=== PATIENT | female | born 1930 | race Caucasian/White ===

== ENCOUNTER 2018-08-16 10:59 | Inpatient (IN) ==
[2018-08-16] MEDS ORDERED: 0.9 % Sodium Chloride 1,000 ML IVC ONE (11:10)
[2018-08-16] MEDS ORDERED: Piperacillin/Tazobactam 3.375 GM in 0.9 % Sodium Chloride Mini Bag 100 ML IVPB ONE (11:15)
--- NOTE | 2018-08-16 11:26 | Emergency Department Note ---
Disposition Clinical Impression: Pneumonia Qualifiers: Pneumonia type: due to unspecified organism Laterality: unspecified laterality Lung location: unspecified part of lung Qualified Code(s): J18.9 - Pneumonia, unspecified organism ARF (acute renal failure) Qualifiers: Acute renal failure type: unspecified Qualified Code(s): N17.9 - Acute kidney failure, unspecified Hypotension Qualifiers: Hypotension type: other hypotension type Qualified Code(s): I95.89 - Other hypotension Disposition: Admitted As Inpatient Condition: Fair Time of Disposition: 13:37 General Adult HPI - General Chief complaint: ED Weakness Stated complaint: Weakness Time Seen by Provider: 08/16/18 11:08 Source: EMS Limitations: no limitations Nursing Notes Reviewed: Yes Vital Signs Reviewed: Yes - History of Present Illness HPI Narrative: I did see the patient immediately upon arrival and also spoke with the paramedics. The patient is in a extended care facility and is nonambulatory and when the arrived this morning the /patient told him that she had a very bad night sleep and that she did not feel well. He states she has had weakness for about the last month which has been constant chronic. Was admitted here several weeks ago for pneumonia and he is unsure if she has completed her course of antibiotics however I did review her ECF sheet and did not see evidence that she is still taking medications for pneumonia. She states she does not feel weak now. I do not see any medications which have been used for weakness specifically. The paramedics state that she did feel warm but temperature was not taken. The blood pressure on the way here was 98 systolic . Her oxygen saturation was 95% on room air initially placed her on nasal cannula oxygen. did arrive and did help somewhat with a history. Social history: No smoking or alcohol, ECF Vision: No blurred vision ENT: No rhinorrhea Respiratory: No cough Allergic: No allergies : No blood in urine GI: No blood in stool Hematologic: No bruising Dermatologic: No skin rash Musculoskeletal: No pain in the extremities Neuro: No numbness of the extremities Pain Scale: 0 - Related Data Home Medications Medication Instructions Recorded Confirmed Allopurinol [Zyloprim 100 MG] 100 mg PO DAILY 07/27/18 08/16/18 Famotidine 20 mg PO BID 08/16/18 08/16/18 Previous Rx's Medication Instructions Recorded Acetaminophen [Tylenol] 650 mg PO Q6HR tablet 08/09/18 Ipratropium/Albuterol Neb [Duoneb] 3 ml IH [id number] inhsol 08/09/18 Levothyroxine [Synthroid] 25 mcg PO 0630 tablet 08/09/18 Lidocaine Patch [Lidoderm 5% patch] 1 each TP Q24H #5 adh..patch 08/09/18 Lisinopril [Zestril] 10 mg PO BID #0 08/09/18 Melatonin 1.5 mg PO HS PRN tablet 08/09/18 Metoprolol [Lopressor] 25 mg PO BID #0 08/09/18 Ondansetron ODT [Zofran ODT] 4 mg SL Q6HR PRN tab.rapdis 08/09/18 Allergies Allergy/AdvReac Type Severity Reaction Status Date / Time No Known Allergies Allergy Verified 07/27/18 09:39 All systems ED: reviewed and negative except as stated. Review of Systems: As Per HPI Past Medical History - Past Medical History Medical history: Reports: hyperlipidemia, hypertension, renal disease, thyroid disease Surgical history: Reports: no surgical history Psychiatric history: Reports: no psych history - Social History Smoking Status: Former smoker Smokeless Tobacco Status: No Alcohol use: Reports: none Drug use: Reports: none Physical Exam CONSTITUTIONAL: Alert and oriented X3she does know the month and the year and the hospital , well-nourished, pale appearing, in no apparent distress HEAD: Normocephalic; atraumatic. EYES: PERRL, no scleral icterus. NOSE: The nose is normal in appearance without rhinorrhea RESP: Normal chest excursion with respiration; breath sounds clear and equal bilaterally; no wheezes, rhonchi, or rales CARD: Regular rhythm, without murmurs, rub or gallop ABD: Non-distended; non-tender, soft,without rigidity, rebound or guarding SKIN: Normal for age and race; warm and dry; no apparent lesions - General Limitations: no limitations General appearance: alert Course Vital Signs Temperature 98.1 F 08/16/18 11:08 Pulse Rate 89 08/16/18 11:08 Respiratory Rate 22 08/16/18 11:08 Blood Pressure 94/58 08/16/18 11:08 O2 Sat by Pulse Oximetry 92 08/16/18 11:08 Temperature 98.1 F 08/16/18 11:22 Pulse Rate 85 08/16/18 12:33 Respiratory Rate 23 08/16/18 12:33 Blood Pressure 108/54 08/16/18 12:33 O2 Sat by Pulse Oximetry 91 08/16/18 12:33 Oxygen Delivery Oxygen Delivery Nasal Cannula Medical Decision Making - MDM Narrative Medical decision making narrative: concern is for pneumonia or hospital pneumonia and for that reason she is started on Zosyn and vancomycin, blood cultures, lactate level, IV fluids, labs. Her white blood cell count was 26,000 this morning and the patient will be admitted to the hospital. 1126 I did review the patient's EKG showing normal sinus rhythm with rate of 85 and evidence of right bundle-branch block but without acute ischemic change or arrhythmia. 1149 I did review the patient's test results as well as the x-ray and the patient does have a diagnosis of pneumonia and she was recently here several weeks ago and so for that reason I will start her on Zosyn and vancomycin and I did speak with the hospitalist who accepts her for admission. Also does have acute renal failure and I did compare this to previous creatinine levels. I did go back and see her again just a few minutes ago and also spoke with the . She does not have septic shock but does have some low blood pressure and did receive IV fluids. Lactate is elevated 2.9 but is not above 4. Her pressure has improved relative to when she had initially presented. 1336 - Medical Records Medical records reviewed: Yes I reviewed the patient's medical records. - Lab Data Lab results reviewed: Yes I reviewed the patient's lab results. Result diagrams: 08/16/18 11:55 08/16/18 11:55 Lab Results 08/16/18 08/16/18 08/16/18 Range/Units 11:36 11:55 11:55 WBC 27.8 H (4.3-11.1) K/mcL RBC 3.09 L (3.82-4.97) M/mcL Hgb 9.1 L (11.5-15.4) g/dL Hct 27.9 L (35.3-44.9) % MCV 90.3 (83.0-100.0) fL MCH 29.4 (28.0-33.3) pg MCHC 32.6 (31.6-35.5) g/dL RDW 14.7 H (11.5-14.5) % Plt Count 154 (140-400) K/mcL MPV 10.8 (9.4-12.4) fL Immature Gran % Test Not Performed Seg Neutrophils % 84.0 % Band Neutrophils % 4.0 (0-4) % Lymphocytes % 9.0 % Monocytes % 2.0 % Eosinophils % 1.0 % Basophils % Test Not Performed Neutrophils # 24.5 H (1.6-8.9) K/mcL Lymphocytes # 2.5 (0.6-4.6) K/mcL Monocytes # 0.6 (0.0-1.3) K/mcL Eosinophils # 0.3 (0.0-0.6) K/mcL Basophils # Test Not Performed Reactive Lymphocytes Present A (Not Present) Platelet Estimate Normal (Normal) Sodium 134 L (136-145) mEq/L Potassium 3.4 L (3.5-5.1) mEq/L Chloride 102 (98-107) mEq/L Carbon Dioxide 26 (23-29) mEq/L BUN 28 H (8-23) mg/dL Creatinine 2.04 H (0.60-1.20) mg/dL Est GFR ( Amer) 28 L (> 60) Est GFR (Non-Af Amer) 23 L (> 60) BUN/Creatinine Ratio 14 (6-26) Glucose 96 (70-105) mg/dL Calculated Osmolality 283 (280-300) Lactic Acid (0.5-2.2) mmol/L Calcium 9.1 (8.6-10.3) mg/dL Total Bilirubin 0.6 (0.3-1.0) mg/dL Direct Bilirubin 0.2 (0.0-0.2) mg/dL Indirect Bilirubin 0.4 (0.0-1.2) mg/dL AST 7 L (13-39) Units/L ALT 5 L (7-52) Units/L Alkaline Phosphatase 78 (34-104) Units/L Serum Total Protein 6.3 L (6.4-8.9) g/dL Albumin 1.8 L (3.5-5.7) g/dL Globulin 4.5 H (2.4-3.5) g/dL Albumin/Globulin Ratio 0.4 L (1.1-2.2) Urine Color Dark Yellow (Yellow) Urine Clarity Turbid A (Clear) Urine pH 5.0 (5.0-8.0) pH Units Ur Specific [place] > 1.030 H (1.010-1.025) Urine Protein >=300 H (Neg-Trace) mg/dL Urine Glucose (UA) Normal (Normal) mg/dL Urine Ketones Trace H (Negative) mg/dL Urine Blood Negative (Negative) Urine Nitrite Negative (Negative) Urine Bilirubin Small H (Negative) Urine Urobilinogen Normal (Normal) mg/dL Ur Leukocyte Esterase Small H (Negative) Urine Microscopic RBC Present (0-3) per hpf Urine Microscopic WBC 30-50 H (0-3) per hpf Ur Squamous Epith Cells Many H (None-Few) per lpf Urine Bacteria Present (None-Few) per hpf Hyaline Casts NETWORKING ADMINISTRATOR Urine Yeast Present H (None Seen) per hpf Ur Culture Indicated? NO. A (NO) 08/16/18 Range/Units 11:55 WBC (4.3-11.1) K/mcL RBC (3.82-4.97) M/mcL Hgb (11.5-15.4) g/dL Hct (35.3-44.9) % MCV (83.0-100.0) fL MCH (28.0-33.3) pg MCHC (31.6-35.5) g/dL RDW (11.5-14.5) % Plt Count (140-400) K/mcL MPV (9.4-12.4) fL Immature Gran % Seg Neutrophils % % Band Neutrophils % (0-4) % Lymphocytes % % Monocytes % % Eosinophils % % Basophils % Neutrophils # (1.6-8.9) K/mcL Lymphocytes # (0.6-4.6) K/mcL Monocytes # (0.0-1.3) K/mcL Eosinophils # (0.0-0.6) K/mcL Basophils # Reactive Lymphocytes (Not Present) Platelet Estimate (Normal) Sodium (136-145) mEq/L Potassium (3.5-5.1) mEq/L Chloride (98-107) mEq/L Carbon Dioxide (23-29) mEq/L BUN (8-23) mg/dL Creatinine (0.60-1.20) mg/dL Est GFR ( Amer) (> 60) Est GFR (Non-Af Amer) (> 60) BUN/Creatinine Ratio (6-26) Glucose (70-105) mg/dL Calculated Osmolality (280-300) Lactic Acid 2.9 H (0.5-2.2) mmol/L Calcium (8.6-10.3) mg/dL Total Bilirubin (0.3-1.0) mg/dL Direct Bilirubin (0.0-0.2) mg/dL Indirect Bilirubin (0.0-1.2) mg/dL AST (13-39) Units/L ALT (7-52) Units/L Alkaline Phosphatase (34-104) Units/L Serum Total Protein (6.4-8.9) g/dL Albumin (3.5-5.7) g/dL Globulin (2.4-3.5) g/dL Albumin/Globulin Ratio (1.1-2.2) Urine Color (Yellow) Urine Clarity (Clear) Urine pH (5.0-8.0) pH Units Ur Specific [place] (1.010-1.025) Urine Protein (Neg-Trace) mg/dL Urine Glucose (UA) (Normal) mg/dL Urine Ketones (Negative) mg/dL Urine Blood (Negative) Urine Nitrite (Negative) Urine Bilirubin (Negative) Urine Urobilinogen (Normal) mg/dL Ur Leukocyte Esterase (Negative) Urine Microscopic RBC (0-3) per hpf Urine Microscopic WBC (0-3) per hpf Ur Squamous Epith Cells (None-Few) per lpf Urine Bacteria (None-Few) per hpf Hyaline Casts Urine Yeast (None Seen) per hpf Ur Culture Indicated? (NO) - Radiology Data Radiology results reviewed: Yes I reviewed the patient's radiology results. Critical Care Time Critical Care Time: Yes Total Critical Care Time: 30 Attestation: 30 minutes of critical care time was spent with the patient with hypotension, recent hospital discharge, initiation of broad-spectrum antibiotics, IV fluid resuscitation, oxygen therapy, discussion with the hospitalist
[2018-08-16 12:10] LABS: Bilirubin,Urine Small (Negative); Blood,Urine Negative (Negative); Clarity,Urine Turbid (Clear); Color,Urine Dark Yellow (Yellow); Glucose,Urine (UA) Normal (Normal); Ketones,Urine Trace mg/dL (Negative); Leukocyte Esterase,Urine Small (Negative); Nitrite,Urine Negative (Negative); Protein,Urine >=300 mg/dL (Neg-Trace); Specific Gravity,Urine > 1.030 (1.010-1.025); Urobilinogen,Urine Normal (Normal)
[2018-08-16 12:13] LABS: Squamous Epithelial Cell,Urine Many per lpf (None-Few); WBC,Urine 30-50 per hpf (0-3)
[2018-08-16 12:25] LABS: Bacteria,Urine Present per hpf (None-Few); RBC,Urine Present per hpf (0-3); Yeast,Urine Present per hpf (None Seen)
[2018-08-16 12:25] LABS: Hemoglobin 9.1 g/dL (11.5-15.4); Red Cell Distribution Width 14.7 % (11.5-14.5)
[2018-08-16 12:26] LABS: Hematocrit 27.9 % (35.3-44.9); Mean Corpuscular HGB Conc 32.6 g/dL (31.6-35.5); Mean Corpuscular Hemoglobin 29.4 pg (28.0-33.3); Mean Corpuscular Volume 90.3 fL (83.0-100.0); Mean Platelet Volume 10.8 fL (9.4-12.4); Platelet Count 154 K/mcL (140-400); Red Blood Count 3.09 M/mcL (3.82-4.97)
[2018-08-16 12:38] LABS: Albumin 1.8 g/dL (3.5-5.7); Albumin/Globulin Ratio 0.4 (1.1-2.2); Bilirubin,Direct 0.2 mg/dL (0.0-0.2); Bilirubin,Indirect 0.4 mg/dL (0.0-1.2); Bilirubin,Total 0.6 mg/dL (0.3-1.0); Calcium 9.1 mg/dL (8.6-10.3); Globulin 4.5 g/dL (2.4-3.5); Potassium 3.4 mEq/L (3.5-5.1); Total Protein 6.3 g/dL (6.4-8.9)
[2018-08-16 12:59] LABS: Eosinophils # 0.3 K/mcL (0.0-0.6); Lymphocytes # 2.5 K/mcL (0.6-4.6); Monocytes # 0.6 K/mcL (0.0-1.3); Neutrophils # 24.5 K/mcL (1.6-8.9); Platelet Estimate Normal (Normal); Reactive Lymphocytes Present (Not Present)
[2018-08-16] MEDS ORDERED: Aminoglycoside Consult 1 EACH MC ONE (13:23)
[2018-08-16] MEDS ORDERED: Naloxone 0.4 MG/ML INJ IVP PRN (13:37)
[2018-08-16] MEDS ORDERED: Melatonin 3 MG TABLET PO PRN ×2 (13:41→16:14)
[2018-08-16] MEDS ORDERED: Ondansetron 4 MG/2 ML VIAL IVP PRN (13:42)
[2018-08-16] MEDS ORDERED: Ipratropium/Albuterol Neb 3 ML IH SCH (16:00)
--- NOTE | 2018-08-16 16:04 | Internal Med History&Physical ---
Date of Encounter: 08/16/18 Time of Encounter: 14:00 Internal Medicine - H&P: HPI Chief complaint: Shortness of breath today History of present illness: Ms. Sy is a 87 year old female with pmh of hypertension, dyslipidemia, kidney disease presenting with complaints of [facility]ness [facility] today at the [facility]. Patient unable to give a full history and may have some dementia. She admits to shortness of breath and occasional cough and says she lives at a [facility]. Not much history could be obtained from her otherwise. Per ER/ [facility] records, she also complains of weakness and feeling unwell for a couple of days. In the ER, she was noted to have a leukcoytosis of 27 and right sided pneumonia. She was started on vanc and zosyn and she is being admitted for further management Past Med Surg Social Fam HX - Past Medical History Medical history: hyperlipidemia, hypertension, renal disease, thyroid disease Additional medical history: Gout Psychiatric history: no psych history - Past Surgical History Surgical History: no surgical history Additional surgical history: none - Social History Smoking Status: Former smoker Smokeless Tobacco Status: No Alcohol use: none Drug use: none - Family History Father Hx Family Cancer: Yes Internal Medicine - H&P: Meds Allopurinol [Zyloprim 100 MG] 100 mg PO DAILY 07/27/18 [History] Acetaminophen [Tylenol] 650 mg PO Q6HR tablet 08/09/18 [Rx] Lisinopril [Zestril] 10 mg PO BID #0 08/09/18 [Rx] Ondansetron ODT [Zofran ODT] 4 mg SL Q6HR PRN tab.rapdis 08/09/18 [Rx] Famotidine [Pepcid] 20 mg PO BID 08/16/18 [History] Ipratropium/Albuterol Sulfate [Iprat-Albut 0.5-3(2.5) mg/3 ml] 3 ml IH QID 08/16/18 [History] Levothyroxine Sodium [Levo-T] 50 mcg PO QAM 08/16/18 [History] Lidocaine Patch [Lidoderm 5% patch] 1 patch TP DAILY 08/16/18 [History] Melatonin [Melatin] 1.5 mg PO PRN PRN 08/16/18 [History] Metoprolol Tartrate [Lopressor] 25 mg PO BID 08/16/18 [History] Ondansetron HCl [Zofran] 4 mg PO TID 08/16/18 [History] Oxygen 2 l IH CONT 08/16/18 [History] Allergy/AdvReac Type Severity Reaction Status Date / Time No Known Allergies Allergy Verified 07/27/18 09:39 ROS unobtainable: due to mental status All Systems PM: A 10-system review of systems was performed and is negative for pertinent findings except as documented above in the HPI. - Cardiovascular Cardiovascular ROS IM: dyspnea - Respiratory Respiratory: cough, dyspnea - Constitutional Vitals: Temp Pulse Resp BP Pulse Ox 97.8 F 96 18 118/82 91 08/16/18 15:47 08/16/18 15:47 08/16/18 15:55 08/16/18 15:47 08/16/18 15:55 General appearance: Present: A&O X 2 Exam: Lethargic - Head Head exam: Present: atraumatic, normocephalic - Eye Eye exam: Present: PERRL, conjuntiva pink, sclera anicteric Pupils: Present: PERRL - Neck Neck exam general surgery: Present: supple, trachea midline. Absent: lymphadenopathy - Respiratory Respiratory exam: Present: decreased breath sounds. Absent: accessory muscle use, rales, rhonchi, wheezes - Cardiovascular Cardiovascular exam: Present: RRR, +S1, +S2. Absent: diastolic murmur, gallop, rubs, systolic murmur - GI/Abdominal GI/Abdominal exam: Present: normal bowel sounds, soft, no peritoneal signs. Absent: distended, tenderness - Extremities Exam Extremities exam: Present: warm, radial pulses palpable and symmetrical. Absent: calf tenderness, cyanotic, pedal edema - Neurological Exam Neurological exam: Present: CN II-XII intact, oriented X3, no focal deficits. Absent: pronater drift, facial droop, speech deficit - Skin Skin exam: Present: dry, intact Internal Med - H&P Results - Labs CBC & Chem 7: 08/16/18 11:55 08/16/18 11:55 Labs: Short CBC 08/16/18 Range/Units 11:55 WBC 27.8 H (4.3-11.1) K/mcL Hgb 9.1 L (11.5-15.4) g/dL Hct 27.9 L (35.3-44.9) % Plt Count 154 (140-400) K/mcL Neutrophils # 24.5 H (1.6-8.9) K/mcL BMP 08/16/18 11:55 Sodium 134 L Potassium 3.4 L Chloride 102 Carbon Dioxide 26 BUN 28 H Creatinine 2.04 H Glucose 96 Calcium 9.1 Liver Function 08/16/18 Range/Units 11:55 Total Bilirubin 0.6 (0.3-1.0) mg/dL Direct Bilirubin 0.2 (0.0-0.2) mg/dL AST 7 L (13-39) Units/L ALT 5 L (7-52) Units/L Alkaline Phosphatase 78 (34-104) Units/L Albumin 1.8 L (3.5-5.7) g/dL Urine 08/16/18 Range/Units 11:36 Urine Color Dark Yellow (Yellow) Urine Clarity Turbid A (Clear) Urine pH 5.0 (5.0-8.0) pH Units Ur Specific [place] > 1.030 H (1.010-1.025) Urine Protein >=300 H (Neg-Trace) mg/dL Urine Glucose (UA) Normal (Normal) mg/dL - Impressions ITS Impressions Chest X-Ray 08/16/18 11:14 IMPRESSION: Elevated right diaphragm with right basilar atelectasis or pneumonia D/ / Kodak Boyle MD / Kodak Boyle MD Interpreting Provider: Kodak Boyle MD - Assessment and Plan (1) Sepsis Current Visit: Yes Status: Acute Assessment and plan: Pt comes in with shortness of breath with pneumonia and leukocytosis of 27. Obtain cultures, urine strep legionella and pneumococcal antigen Start on vanc and zosyn Qualifiers: Qualified Code(s): A41.9 - Sepsis, unspecified organism (2) Pneumonia Current Visit: Yes Status: Acute Assessment and plan: See #1. ON vanc and zosyn Qualifiers: Pneumonia type: due to unspecified organism Laterality: unspecified laterality Lung location: unspecified part of lung Qualified Code(s): J18.9 - Pneumonia, unspecified organism (3) Hypothyroidism Current Visit: Yes Status: Acute Assessment and plan: Continue levothyroxine Qualifiers: Qualified Code(s): E03.9 - Hypothyroidism, unspecified (4) Hypertension Current Visit: Yes Status: Acute Assessment and plan: Hold home meds due to borderline hypotension Qualifiers: Qualified Code(s): I10 - Essential (primary) hypertension (5) DVT prophylaxis Current Visit: Yes Status: Acute Assessment and plan: Heparin sc - Time Spent With Patient Total time spent is greater than 50% in coordination of care (as documented) at patient's floor/unit and/or counseling patient:
[2018-08-16] MEDS: Acetaminophen 325 MG TABLET PO SCH (17:32)
[2018-08-16] MEDS: *HR* Heparin 5,000 UNIT/ML VIAL SQ SCH (18:14)
[2018-08-16] MEDS ORDERED: 0.9 % Sodium Chloride 1,000 ML IVC SCH (19:15)
[2018-08-16] MEDS: Ipratropium/Albuterol Neb 3 ML IH SCH ×2 (19:23→23:46)
[2018-08-16] MEDS ORDERED: *HR* FentaNYL (PF) 100 MCG/2 ML VIAL IVP PRN (19:27)
[2018-08-16] MEDS: 0.9 % Sodium Chloride 1,000 ML IVC SCH (20:35)
[2018-08-16] MEDS: Piperacillin/Tazobactam 3.375 GM in 0.9 % Sodium Chloride Mini Bag 100 ML IVPB SCH (20:36)
[2018-08-16] MEDS: Haloperidol Lactate 5 MG/ML VIAL IVP PRN (20:40)
[2018-08-16] MEDS: Famotidine 20 MG TABLET PO SCH (20:40)
[2018-08-16 21:35] LABS: ABG Base Excess 0 mEq/L (-2 to 3); ABG HCO3 25 mEq/L (21-27); ABG Oxygen Saturation 90 % (95-98); ABG PCO2 38 mmHg (35-45); ABG PH 7.42 pH Units (7.32-7.45); ABG PO2 56 mmHg (85-104); ABG TCO2 26 mEq/L (20-26)
[2018-08-17] MEDS: Acetaminophen 325 MG TABLET PO SCH ×4 (00:16→21:28)
[2018-08-17] MEDS: Ipratropium/Albuterol Neb 3 ML IH SCH ×4 (03:48→22:49)
[2018-08-17] MEDS: 0.9 % Sodium Chloride 1,000 ML IVC SCH (05:44)
[2018-08-17] MEDS: Haloperidol Lactate 5 MG/ML VIAL IVP PRN (05:44)
[2018-08-17 05:54] LABS: Hematocrit 30.2 % (35.3-44.9); Hemoglobin 9.8 g/dL (11.5-15.4); Mean Corpuscular HGB Conc 32.5 g/dL (31.6-35.5); Mean Corpuscular Hemoglobin 29.3 pg (28.0-33.3); Mean Corpuscular Volume 90.1 fL (83.0-100.0); Mean Platelet Volume 11.1 fL (9.4-12.4); Platelet Count 118 K/mcL (140-400); Red Blood Count 3.35 M/mcL (3.82-4.97); Red Cell Distribution Width 15.3 % (11.5-14.5)
[2018-08-17 06:30] LABS: Eosinophils # 1.5 K/mcL (0.0-0.6); Lymphocytes # 2.9 K/mcL (0.6-4.6); Monocytes # 1.9 K/mcL (0.0-1.3); Neutrophils # 17.9 K/mcL (1.6-8.9); Platelet Estimate Decreased (Normal)
[2018-08-17] MEDS ORDERED: Levothyroxine 25 MCG TABLET PO SCH (06:30)
--- NOTE | 2018-08-17 06:53 | Event Note ---
Date of Encounter: 08/17/18 Time of Encounter: 06:37 Alerted by patient's nurse KINGS Rivera that patient had finished 1 L bag of IV fluids with second bag now being hung. Patient only had 1 wet Depends during shift. Bladder scan showed 4 mL, however patient was yelling out in pain during bladder scan so nurse straight cathed patient with 60 mL of dark yellow urine out. GFR 23 and creatinine 2.04 and yesterday's a.m. labs. No CMP or BMP results this morning to compare. Patient had elevated lactic acid of 2.7 as well yesterday at 16:22 with no repeat ordered. Stat lactic acid ordered. Lab called to determine if BMP her CMP was drawn this morning which lab stated that results are pending. Pt. had Purewick catheter previously Galeano catheter ordered d/t retention/low output. Day team to monitor pts. renal function and output closely to determine if urology and/or nephrology consult is appropriate. Nurse instructed to continue monitoring patient closely and alert me immediately of any adverse changes.
[2018-08-17 06:54] LABS: BUN/Creatinine Ratio 13 (6-26); Blood Urea Nitrogen 36 mg/dL (8-23); Calcium 8.8 mg/dL (8.6-10.3); Carbon Dioxide 23 mEq/L (23-29); Chloride 105 mEq/L (98-107); Glucose 50 mg/dL (70-105); Magnesium 1.7 mg/dL (1.6-2.6); Osmolality,Calculated 284 (280-300); Phosphorous < 1.0 mg/dL (2.7-4.5); Potassium 4.1 mEq/L (3.5-5.1); Sodium 134 mEq/L (136-145); Vancomycin,Random 12 mcg/mL; eGFR For Non-African Americans 17 (> 60)
--- NOTE | 2018-08-17 08:09 | Internal Med Progress Note ---
Hospitalist Progress Note - Encounter Date of Encounter: 08/17/18 Time of Encounter: 08:07 - Subjective Interval History: Essentially anuric overnight, RN unable to get marie placed, pt still moaning/grimacing and does endorse pain to palpation throughout her abdomen. Denies N/V/D. No fevers. Family is very concerned. Discussion today about goals of care with pt and family, will remain full code for now. - Exam Vitals: Temp Pulse Resp BP Pulse Ox 98.8 F 104 18 96/65 96 08/17/18 06:38 08/17/18 06:38 08/17/18 06:38 08/17/18 06:38 08/17/18 06:38 Exam: General: moaning and appears uncomfortable, poor eye contact, elderly and ill appearing, somewhat confused Thoracic: coarse breath sounds w L-sided basilar crackles, R lung relatively clear Cardio: Normal S1 and S2, regular rate and rhythm, no murmurs Abdomen: Soft, tender diffusely, does have palpable spleen Extremities: Warm, well perfused. DP pulses 2+ b/l. No edema. Neuro: Awake, oriented to self, nods appropriately to some questions - Assessment and Plan (1) Pneumonia Current Visit: Yes Status: Acute - Summary of Assessment and Plan Summary of Assessment and Plan: PNA: SIRS 3/4, CXR w possible infiltrate - empiric zosyn Severe sepsis: SIRS 3/4 (afebrile), c/b persistent lactic acidosis 2.7, hypotension, and MARISA - repeat lactic acid - holding lopressor, ACEi - fluids as below for MAIRSA, bolus PRN hypotension Anuric MARISA: - Ulytes - holding ACEi - stop vanc as no indication for skin/soft tissue infection and no hx MRSA - fluids NS@150 for 1L then reduce to @100 - Consult Urology for Marie placement, need accurate I&Os as well as urine testing, RN unsuccessful - Consult Neph for assistance, per discussion with family would be amenable to HD if needed and was a candidate Hypophosphatemia: Phos <1 - replace with 30mmol q4h x2 w repeat this afternoon Hypoglycemia: BG 50 this AM - accuchecks - replace prn Abdominal Pain: does have renal failure and palpable spleen - CT abd/pelvis w/o con Acute metabolic encephalopathy: due to infection and MARISA - precautions - treat underlying cause as above (or if unknown, see below) Chronic hypoxic respiratory failure: home 2L Hypothyroidism: home synthroid HTN: holding home BB, ACEi Gout: holding home allopurinol 100 PPx: sqh FEN: regular, MIVF as above Lines: PIV Consults: Uro, Neph Code: Full, extensive discussion today and still full code, consider palliative consult in future if condition continues to worsen Dispo: patient requires inpatient eval and management at this time. Anticipate 2-3 days. Will likely return to SNF. Internal Medicine: Result - Labs CBC & Chem 7: 08/17/18 04:24 08/17/18 04:24 Labs: Short CBC 08/16/18 08/17/18 Range/Units 11:55 04:24 WBC 27.8 H 24.2 H (4.3-11.1) K/mcL Hgb 9.1 L 9.8 L (11.5-15.4) g/dL Hct 27.9 L 30.2 L (35.3-44.9) % Plt Count 154 118 L (140-400) K/mcL Neutrophils # 24.5 H 17.9 H (1.6-8.9) K/mcL BMP 08/16/18 08/17/18 11:55 04:24 Sodium 134 L 134 L Potassium 3.4 L 4.1 Chloride 102 105 Carbon Dioxide 26 23 BUN 28 H 36 H Creatinine 2.04 H 2.69 H Glucose 96 50 L Calcium 9.1 8.8 Liver Function 08/16/18 Range/Units 11:55 Total Bilirubin 0.6 (0.3-1.0) mg/dL Direct Bilirubin 0.2 (0.0-0.2) mg/dL AST 7 L (13-39) Units/L ALT 5 L (7-52) Units/L Alkaline Phosphatase 78 (34-104) Units/L Albumin 1.8 L (3.5-5.7) g/dL Urine 08/16/18 Range/Units 11:36 Urine Color Dark Yellow (Yellow) Urine Clarity Turbid A (Clear) Urine pH 5.0 (5.0-8.0) pH Units Ur Specific [place] > 1.030 H (1.010-1.025) Urine Protein >=300 H (Neg-Trace) mg/dL Urine Glucose (UA) Normal (Normal) mg/dL - ABG Interpretation ABG results: ABG ABG pH 7.42 pH Units (7.32-7.45) 08/16/18 21:31 ABG pCO2 38 mmHg (35-45) 08/16/18 21:31 ABG pO2 56 mmHg (85-104) L 08/16/18 21:31 ABG O2 Saturation 90 % (95-98) L 08/16/18 21:31 - Impressions Impressions Chest X-Ray 08/16/18 11:14 IMPRESSION: Elevated right diaphragm with right basilar atelectasis or pneumonia D/ / Kodak Boyle MD / Kodak Boyle MD Interpreting Provider: Kodak Boyle MD Consult Discharge Plan - Plan Referrals: Julian Bhatt, [Primary Care Provider] - (1) Pneumonia Qualifiers: Pneumonia type: due to unspecified organism Laterality: unspecified laterality Lung location: unspecified part of lung Qualified Code(s): J18.9 - Pneumonia, unspecified organism
[2018-08-17] MEDS: Famotidine 20 MG TABLET PO SCH ×2 (08:14→21:29)
[2018-08-17] MEDS: *HR* Heparin 5,000 UNIT/ML VIAL SQ SCH ×2 (08:14→21:28)
[2018-08-17] MEDS: Piperacillin/Tazobactam 3.375 GM in 0.9 % Sodium Chloride Mini Bag 100 ML IVPB SCH ×2 (08:15→22:16)
--- NOTE | 2018-08-17 09:30 | Urology - Consult Note ---
Date of Encounter: 08/17/18 Time of Encounter: 09:10 - Assessment and Plan (1) Difficulty with insertion of urinary catheter Current Visit: Yes Status: Acute Assessment and plan: Patient is an 87-year-old female who presents with a difficult insertion of the urinary catheter. I was able to placed a 16-Japanese coude catheter with moderate difficulty. Patient has a 1 cm erythematous urethral lesion that I was able to advance the catheter passed without any bleeding or significant pain. Patient tolerated well, and I noticed immediate return of scant, clear yellow urine. Patient's renal function is declining, and I suspect she is oliguric. I will order a bladder scan to evaluate urine volume. (2) Urethral lesion Current Visit: Yes Status: Acute Assessment and plan: Patient is an 87-year-old female who presents with a urethral lesion. Urethral lesion is approximately 1 cm, erythematous. I discussed this finding with patient's nurse as well as patient's daughter. This is not well visualized on patient's CT scan, as MRI is a better imaging modality for the urethra. Dr. Resi will be in later today to reexamine patient. (3) Renal cysts, acquired, bilateral Current Visit: Yes Status: Acute Assessment and plan: Patient is an 87-year-old female who presents with bilateral renal cysts. Cysts appear to be more complex on the right kidney. Dr. Reis will review CT images and discuss with patient's family. Urology CN:HPI Consult date: 08/17/18 Reason for consult Urology: Difficult Galeano Requesting physician: Zi Tobar History of present illness: Patient is an 87-year-old female who presents with a difficult Galeano catheter insertion. Patient was recently admitted through the emergency department from home for generalized weakness and unintentional weight loss on 07/28/2018. Dariel ramos was diagnosed with pneumonia and was admitted for [address] of the abdomen and pelvis revealing colonic thickening, and she underwent colonoscopy with removal of benign tubular adenoma. CT also revealed bilateral renal cysts, more complex on the right. Patient was evaluated by oncology and neurology and found to have pancytopenia without definitive cause. Patient was discharged to an extended care facility for pulmonary rehabilitation, and yesterday, the extended care facility transferred patient back to the emergency department due to weakness and progressive dyspnea. Patient is currently being treated for right basilar atelectasis/pneumonia with IV vancomycin and Zosyn. Patient's white blood cell count remains elevated, and her renal function is declining. A consult has been placed to nephrology. Urology was called to place a catheter after multiple failed attempts at the bedside per nursing staff. Nursing staff reports patient has been oliguric jodi kunz. On my examination, patient is lying in bed crying out in pain. Patient's daughter is at bedside and is a reliable historian. Patient's daughter reports patient has no known significant history. She denies any knowledge of renal stones, recurrent urinary tract infections, or congenital malformations. There is no known documented history of gross hematuria. Patient's daughter reports there is no known family history of malignancy. Patient started reports patient is a former smoker but stopped smoking approximately 50 years ago. Past Med Surg Social Fam HX - Past Medical History Medical history: hyperlipidemia, hypertension, renal disease, thyroid disease Additional medical history: Gout Psychiatric history: no psych history - Past Surgical History Surgical History: no surgical history Additional surgical history: none - Social History Smoking Status: Former smoker Smokeless Tobacco Status: No Alcohol use: none Drug use: none - Family History Father Hx Family Cancer: Yes Medications and Allergies Allopurinol [Zyloprim 100 MG] 100 mg PO DAILY 07/27/18 [History] Acetaminophen [Tylenol] 650 mg PO Q6HR tablet 08/09/18 [Rx] Lisinopril [Zestril] 10 mg PO BID #0 08/09/18 [Rx] Ondansetron ODT [Zofran ODT] 4 mg SL Q6HR PRN tab.rapdis 08/09/18 [Rx] Famotidine [Pepcid] 20 mg PO BID 08/16/18 [History] Ipratropium/Albuterol Sulfate [Iprat-Albut 0.5-3(2.5) mg/3 ml] 3 ml IH QID [History] Levothyroxine Sodium [Levo-T] 50 mcg PO QAM 08/16/18 [History] Lidocaine Patch [Lidoderm 5% patch] 1 patch TP DAILY 08/16/18 [History] Melatonin [Melatin] 1.5 mg PO HS PRN 08/16/18 [History] Metoprolol Tartrate [Lopressor] 25 mg PO BID 08/16/18 [History] Ondansetron HCl [Zofran] 4 mg PO TID 08/16/18 [History] Oxygen 2 l IH CONT 08/16/18 [History] Allergy/AdvReac Type Severity Reaction Status Date / Time No Known Allergies Allergy Verified 07/27/18 09:39 Review of Systems ROS unobtainable: due to mental status Exam Initial Vital Signs Temp Pulse Resp BP Pulse Ox 98.1 F 89 22 94/58 92 08/16/18 11:08 08/16/18 11:08 08/16/18 11:08 08/16/18 11:08 08/16/18 11:08 - General physical appearance Present: moderate distress, moderate pain - Eyes Present: PERRL, normal ocular movement - ENT Present: normal nares, no congestion - Neck Present: no masses, trachea midline, no lymphadenopathy - Respiratory Present: normal respiratory effort - Cardiovascular Cardiovascular exam IM: tachycardia - Abdomen Abdomen: Present: soft, non tender - Genitourinary Present: normal external genitalia, other (1 cm erythematous urethral lesion; urethral patency is difficult to assess) - Integumentary Present: no rash, no abnormal pigmentation - Neurologic Present: disoriented - Musculoskeletal Present: other (normal posture ) Urology Results - Labs 08/17/18 04:24 08/17/18 04:24 Abnormal lab results WBC 24.2 K/mcL (4.3-11.1) H 08/17/18 04:24 RBC 3.35 M/mcL (3.82-4.97) L 08/17/18 04:24 Hgb 9.8 g/dL (11.5-15.4) L 08/17/18 04:24 Hct 30.2 % (35.3-44.9) L 08/17/18 04:24 RDW 15.3 % (11.5-14.5) H 08/17/18 04:24 Plt Count 118 K/mcL (140-400) L 08/17/18 04:24 Band Neutrophils % 32.0 % (0-4) H 08/17/18 04:24 Neutrophils # 17.9 K/mcL (1.6-8.9) H 08/17/18 04:24 Monocytes # 1.9 K/mcL (0.0-1.3) H 08/17/18 04:24 Eosinophils # 1.5 K/mcL (0.0-0.6) H 08/17/18 04:24 Reactive Lymphocytes Present (Not Present) A 08/16/18 11:55 Platelet Estimate Decreased (Normal) L 08/17/18 04:24 ABG pO2 56 mmHg (85-104) L 08/16/18 21:31 ABG O2 Saturation 90 % (95-98) L 08/16/18 21:31 Sodium 134 mEq/L (136-145) L 08/17/18 04:24 BUN 36 mg/dL (8-23) H 08/17/18 04:24 Creatinine 2.69 mg/dL (0.60-1.20) H 08/17/18 04:24 Est GFR ( Amer) 20 (> 60) L 08/17/18 04:24 Est GFR (Non-Af Amer) 17 (> 60) L 08/17/18 04:24 Glucose 50 mg/dL (70-105) L 08/17/18 04:24 Lactic Acid 2.7 mmol/L (0.5-2.2) H 08/16/18 16:22 Phosphorus < 1.0 mg/dL (2.7-4.5) L* 08/17/18 04:24 AST 7 Units/L (13-39) L 08/16/18 11:55 ALT 5 Units/L (7-52) L 08/16/18 11:55 Serum Total Protein 6.3 g/dL (6.4-8.9) L 08/16/18 11:55 Albumin 1.8 g/dL (3.5-5.7) L 08/16/18 11:55 Globulin 4.5 g/dL (2.4-3.5) H 08/16/18 11:55 Albumin/Globulin Ratio 0.4 (1.1-2.2) L 08/16/18 11:55 Urine Clarity Turbid (Clear) A 08/16/18 11:36 Ur Specific [place] > 1.030 (1.010-1.025) H 08/16/18 11:36 Urine Protein >=300 mg/dL (Neg-Trace) H 08/16/18 11:36 Urine Ketones Trace mg/dL (Negative) H 08/16/18 11:36 Urine Bilirubin Small (Negative) H 08/16/18 11:36 Ur Leukocyte Esterase Small (Negative) H 08/16/18 11:36 Urine Microscopic WBC 30-50 per hpf (0-3) H 08/16/18 11:36 Ur Squamous Epith Cells Many per lpf (None-Few) H 08/16/18 11:36 Urine Yeast Present per hpf (None Seen) H 08/16/18 11:36 Ur Culture Indicated? NO. (NO) A 08/16/18 11:36 Diabetes panel 08/16/18 08/17/18 Range/Units 11:55 04:24 Sodium 134 L 134 L (136-145) mEq/L Potassium 3.4 L 4.1 (3.5-5.1) mEq/L Chloride 102 105 (98-107) mEq/L Carbon Dioxide 26 23 (23-29) mEq/L BUN 28 H 36 H (8-23) mg/dL Creatinine 2.04 H 2.69 H (0.60-1.20) mg/dL Glucose 96 50 L (70-105) mg/dL Calcium 9.1 8.8 (8.6-10.3) mg/dL AST 7 L (13-39) Units/L ALT 5 L (7-52) Units/L Alkaline Phosphatase 78 (34-104) Units/L Albumin 1.8 L (3.5-5.7) g/dL Calcium panel 08/16/18 08/17/18 Range/Units 11:55 04:24 Calcium 9.1 8.8 (8.6-10.3) mg/dL Phosphorus < 1.0 L* (2.7-4.5) mg/dL Albumin 1.8 L (3.5-5.7) g/dL Pituitary panel 08/16/18 08/17/18 Range/Units 11:55 04:24 Sodium 134 L 134 L (136-145) mEq/L Potassium 3.4 L 4.1 (3.5-5.1) mEq/L Chloride 102 105 (98-107) mEq/L Carbon Dioxide 26 23 (23-29) mEq/L BUN 28 H 36 H (8-23) mg/dL Creatinine 2.04 H 2.69 H (0.60-1.20) mg/dL Glucose 96 50 L (70-105) mg/dL Calcium 9.1 8.8 (8.6-10.3) mg/dL Adrenal panel 08/16/18 08/17/18 Range/Units 11:55 04:24 Sodium 134 L 134 L (136-145) mEq/L Potassium 3.4 L 4.1 (3.5-5.1) mEq/L Chloride 102 105 (98-107) mEq/L Carbon Dioxide 26 23 (23-29) mEq/L BUN 28 H 36 H (8-23) mg/dL Creatinine 2.04 H 2.69 H (0.60-1.20) mg/dL Glucose 96 50 L (70-105) mg/dL Calcium 9.1 8.8 (8.6-10.3) mg/dL Total Bilirubin 0.6 (0.3-1.0) mg/dL AST 7 L (13-39) Units/L ALT 5 L (7-52) Units/L Alkaline Phosphatase 78 (34-104) Units/L Albumin 1.8 L (3.5-5.7) g/dL All other labs normal. - Imaging CT scan - abdomen: report reviewed, image reviewed CT scan - pelvis: report reviewed, image reviewed Procedures:Urology - Catheter Insertion (Urinary) Prophylactic antibiotics given: No Bladder Scan/Ultrasound used before catheterization: No Preparation: Povidone-Iodine Type of catheter inserted: 2 way, coude tip Catheter Japanese Size: 16 Results: successfully catheterized-immediate flow Urine Appearance: Clear Patient tolerated procedure: well, no complications Complications: none Additional comments: Patient lying in dorsal lithotomy position. Nursing staff at bedside assisting with the retraction of patient's lower extremities. Patient was prepped and draped in normal sterile fashion. I inserted a lidocaine Urojet. I immediately noticed a 1 cm erythematous urethral lesion. I encountered some difficulty advancing the 16-Japanese coude catheter past this lesion and into the bladder. I noticed immediate return of clear yellow urine and instilled 10 mL of sterile water into the catheter balloon. Patient tolerated very well and states her pain improved after the procedure. There were no complications. Consult Discharge Plan - Plan Referrals: Julian Bhatt DO [Primary Care Provider] -
[2018-08-17] MEDS ORDERED: *HR* FentaNYL (PF) 100 MCG/2 ML VIAL IVP ONE (10:17)
[2018-08-17] MEDS ORDERED: 0.9 % Sodium Chloride 1,000 ML IVC SCH (10:20)
[2018-08-17] MEDS ORDERED: *HR* FentaNYL (PF) 100 MCG/2 ML VIAL IVP PRN ×2 (10:26→21:33)
--- NOTE | 2018-08-17 12:58 | Nephrology Consult Note ---
Date of Encounter: 08/17/18 Time of Encounter: 15:45 Assessment and Plan (1) Acute kidney injury superimposed on CKD Current Visit: Yes Status: Acute oliguric to anuric MARISA on CKD stage 3. Most likely MARISA 2/2 to sepsis causing a lactic acidosis. Lactic acid = 2.8. Prerenal azotemia vs. ATN 2/2 sepsis. Patient's blood pressure is currently being maintained without pressors but is low normal. CT of abdomen showed no hydronephrosis. UA was contaminated but did show a specific gravity of 1.030 and proteinuria. We will repeat urine after patient begins to make urine. Yeast present which could be a contaminate but if patient does not improve on antibiotics would consider starting an antifungal. Patient is s/p NS 2L and currently has NS 150ml/hr running. Continue aggressive fluid rehydration as patient's urine specific gravity was 1.030. We will continue renal conservative measures at this time. Plan: - continue NS @ 150 ml/hr , s/p 2L normal saline - Urine Na and protein to creatinine ratio ordered, awaiting urine - avoid nephrotoxins - strict I&Os - adjust mediations to creatinine clearance - diet: renal and cardiac diet (2) Sepsis Current Visit: Yes Status: Acute Patient is meeting SIRS criteria with an elevated heart rate and elevated WBC count. Patient is having end organ damage with MARISA. Blood pressures is low normal. Blood pressure medications held due to this. Qualifiers: Qualified Code(s): A41.9 - Sepsis, unspecified organism (3) Pneumonia Current Visit: Yes Status: Acute Qualifiers: Pneumonia type: due to unspecified organism Laterality: unspecified laterality Lung location: unspecified part of lung Qualified Code(s): J18.9 - Pneumonia, unspecified organism (4) Low phosphate levels Current Visit: Yes Status: Acute Phosphate level of < 1, most likely due to lab error as previous 2.9 on 08/09/18. Patient was given sodium phosphate 30mmol x 1 bag. Repeat Phos 2.9. Stopped replacement. (5) Splenomegaly Current Visit: Yes Status: Acute infarct suspected from CT scan. History of Present Illness - Reason for Consult Consult date: 08/17/18 Requesting physician: Zi Tobar - Chief Complaint oliguria - History of Present Illness Ms. Sy is a 87 year old female with pmh of hypertension, dyslipidemia and hypothyroidism presenting from the [place] [facility] for SOB. Nephrology was consulted for MARISA and oliguria. Overnight patient had minimal urinary output. Nursing staff did a straight cath and she was found to only have 60ml. Urology was consulted for Galeano placement in the morning. During Galeano placement minimal urine was seen. Unable to obtain history from patient as she is not responding appropriately to questions. Family is present in the room. They stated that per nursing she has been acutely agitated since midnight. They gave her halidol last night which did not help. She was given Fenanyl 50mg which also did not seem to help. She appears uncomfortable as she is restless and is moaning which per family is not her normal. In reviewing records at [facility], she has had a CKD stage 3. Creatinine previously normal in July this month. Past Med Surg Social Fam HX - Past Medical History Medical history: hyperlipidemia, hypertension, renal disease, thyroid disease Additional medical history: Gout Psychiatric history: no psych history - Past Surgical History Surgical History: no surgical history Additional surgical history: none - Social History Smoking Status: Former smoker Smokeless Tobacco Status: No Alcohol use: none Drug use: none - Family History Father Hx Family Cancer: Yes Medications and Allergies Allopurinol [Zyloprim 100 MG] 100 mg PO DAILY 07/27/18 [History] Acetaminophen [Tylenol] 650 mg PO Q6HR tablet 08/09/18 [Rx] Lisinopril [Zestril] 10 mg PO BID #0 08/09/18 [Rx] Ondansetron ODT [Zofran ODT] 4 mg SL Q6HR PRN tab.rapdis 08/09/18 [Rx] Famotidine [Pepcid] 20 mg PO BID 08/16/18 [History] Ipratropium/Albuterol Sulfate [Iprat-Albut 0.5-3(2.5) mg/3 ml] 3 ml IH QID 08/16/18 [History] Levothyroxine Sodium [Levo-T] 50 mcg PO QAM 08/16/18 [History] Lidocaine Patch [Lidoderm 5% patch] 1 patch TP DAILY 08/16/18 [History] Melatonin [Melatin] 1.5 mg PO HS PRN 08/16/18 [History] Metoprolol Tartrate [Lopressor] 25 mg PO BID 08/16/18 [History] Ondansetron HCl [Zofran] 4 mg PO TID 08/16/18 [History] Oxygen 2 l IH CONT 08/16/18 [History] Allergy/AdvReac Type Severity Reaction Status Date / Time No Known Allergies Allergy Verified 07/27/18 09:39 Review of Systems ROS unobtainable: due to mental status Exam - Vital Signs Vital signs: Initial Vital Signs Temp Pulse Resp BP Pulse Ox 98.1 F 89 22 94/58 92 08/16/18 11:08 08/16/18 11:08 08/16/18 11:08 08/16/18 11:08 08/16/18 11:08 Vital Signs - Last 8 Hours Temp Pulse Resp BP Pulse Ox 08/17/18 11:39 98.3 F 68 18 89/56 93 08/17/18 06:38 98.8 F 104 18 96/65 96 Intake and Output 08/16/18 08/17/18 08/17/18 23:59 07:59 15:59 Intake Total 1160 / 1160 Balance 1160 / 1160 Intake: IV Fluids 1100 / 1100 0.9 % Sodium Chloride 1,000 ML 1000 / 1000 @ 125 mls/hr IVC .Q8H [facility] Rx#: [id number] Zosyn 3.375 GM In 0.9 % Sodium 100 / 100 Chloride (Mini-Bag +) 100 ML @ 25 mls/hr IVPB BID [facility] Rx#: [id number] Oral 60 / 60 Other: Stool Size Smear Smear Stool Consistency soft Stool Color Brown # Bowel Movement Diapers 1 1 Weight 82.9 kg - General Appearance Exam: Constitutional: moaning and restlessly moving her extremities trying to take the covers off Head: Normocephalic, atraumatic Heart: Normal, regular rate and rhythm, no murmurs Lungs: Decrease breath sounds bilaterally, rhonchi present, NC 4L Abdomen: Soft, nondistended, nontender, no guarding or rigidity. Extremities: mild non-pitting edema, No clubbing, radial pulse +2/4, capillary refill <2sec. Skin: Skin warm and dry, no lesions, no rashes, no jaundice Neurologic: not responding to questions, unaware of her surroundings Results - Lab Results 08/17/18 04:24 08/17/18 04:24 Most recent lab results ABG pH 7.42 pH Units (7.32-7.45) 08/16/18 21:31 ABG pCO2 38 mmHg (35-45) 08/16/18 21:31 ABG pO2 56 mmHg (85-104) L 08/16/18 21:31 ABG HCO3 25 mEq/L (21-27) 08/16/18 21:31 ABG O2 Saturation 90 % (95-98) L 08/16/18 21:31 Calcium 8.8 mg/dL (8.6-10.3) 08/17/18 04:24 Phosphorus < 1.0 mg/dL (2.7-4.5) L* 08/17/18 04:24 Magnesium 1.7 mg/dL (1.6-2.6) 08/17/18 04:24 Consult Discharge Plan - Plan Referrals: Julian Bhatt DO [Primary Care Provider] -
[2018-08-17] MEDS ORDERED: *HR* Dextrose 50 % in Water (Syg) 50 ML SYRINGE IVP PRN ×2 (13:49→21:33)
[2018-08-17] MEDS ORDERED: Dextrose Gel 15 GM/37.5 ML TUBE PO PRN ×4 (13:49→21:33)
[2018-08-17] MEDS ORDERED: D5% in Water 1,000 ML IVC PRN ×2 (13:49→21:33)
[2018-08-17 14:31] LABS: Phosphorous 2.9 mg/dL (2.7-4.5); Uric Acid 9.7 mg/dL (2.3-7.6)
--- NOTE | 2018-08-17 16:24 | Oncology Inp Consult Note ---
<AnnaIvan - Last Filed: 08/17/18 17:49> Date of Encounter: 08/17/18 Time of Encounter: 17:49 - Data of Consult Requesting Physician: Zi Tobar Primary Care Provider: Julian Bhatt DO Medications and Allergies Allopurinol [Zyloprim 100 MG] 100 mg PO DAILY 07/27/18 [History] Acetaminophen [Tylenol] 650 mg PO Q6HR tablet 08/09/18 [Rx] Lisinopril [Zestril] 10 mg PO BID #0 08/09/18 [Rx] Ondansetron ODT [Zofran ODT] 4 mg SL Q6HR PRN tab.rapdis 08/09/18 [Rx] Famotidine [Pepcid] 20 mg PO BID 08/16/18 [History] Ipratropium/Albuterol Sulfate [Iprat-Albut 0.5-3(2.5) mg/3 ml] 3 ml IH QID 08/16/18 [History] Levothyroxine Sodium [Levo-T] 50 mcg PO QAM 08/16/18 [History] Lidocaine Patch [Lidoderm 5% patch] 1 patch TP DAILY 08/16/18 [History] Melatonin [Melatin] 1.5 mg PO HS PRN 08/16/18 [History] Metoprolol Tartrate [Lopressor] 25 mg PO BID 08/16/18 [History] Ondansetron HCl [Zofran] 4 mg PO TID 08/16/18 [History] Oxygen 2 l IH CONT 08/16/18 [History] Allergy/AdvReac Type Severity Reaction Status Date / Time No Known Allergies Allergy Verified 07/27/18 09:39 Consult Discharge Plan - Plan Referrals: Julian Bhatt DO [Primary Care Provider] - Inpatient Charges Provider: Dr. Jaguar Castillo Consult - Inpatient: [id number] - Attending Attestation I examined this patient and my medical decision-making was reviewed with the Advanced Practice Nurse. I agree with the documented findings, disposition and treatment plan as described except to the extent set forth below. -CT A/P w/o contrast shows splenomegaly, free fluid in the pelvis, and pelvic/ inguinal/ retroperitoneal RUBIO concerning for underlying malignant process. -Would recommend surgery c/s for concern for rupture of a lesion on the spleen -Would also recommend transfer to step down or ICU for monitoring and further stabilization -We will perform an anemia w/u Thank you for the consult! <Marline Henderson - Last Filed: 08/17/18 18:34> Date of Encounter: 08/17/18 Assessment and Plan (1) Abnormal CT scan, pelvis Status: Acute Assessment and plan: CT of the abdomen and pelvis revealed splenomegaly with several peripheral lesions suggesting areas of infarction. There is significant progression of retroperitoneal, pelvic and inguinal adenopathy. Small quantity of free pelvic fluid with dependent increased attenuation suggesting a hemorrhagic component. Mild anasarca with infiltration of the mesenteric and retroperitoneal fat. The blood in the pelvis may be splenic in origin. Patient has had acute, worsening left sided abdominal pain with lactic acidosis, leukocytosis, tachycardia and hypotension not requiring pressors Plan: Discussed with hospitalist concern for small areas of infarction/splenic rupture that could progress into complete splenic rupture and further decompensation Consult to surgery-case discussed with Dr. Liu, planning on splenectomy in OR this evening Planning for transfer to 2N/ICU Await pathology from splenectomy (2) Acute kidney injury superimposed on CKD Status: Acute Assessment and plan: Anuric MARISA On IVF Nephrotoxic medications withheld Galeano cath placed Nephrology consulted, awaiting recs (3) Splenomegaly Status: Acute Assessment and plan: Plan for splenomegaly with infarct and concern for early/small areas of rupture as discussed above She does have evidence of diffuse RUBIO, previously attempted to biopsy axillary RUBIO on 08/07/2018 however aborted due to no identifiable adenopathy on US We will await pathology from splenectomy Once stabilized we will plan to pursue bone marrow biopsy and aspiration SPEP was negative for M-Tobias, Her Urine VERONICA does show a positive BJP Overall, concerning for underlying clonal plasma cell or lymphoproliferative disorder - Data of Consult Requesting Physician: Zi Tobar Primary Care Provider: Julian Bhatt DO - Consult Narrative Reason for consult: Splenomegaly with infarct, RUBIO History of present illness: Ms. Sy is an 87 year old female known to our service during her admission earlier this month when she presented with fever, progressive weakness, significant BLE weakness and weight loss. She was evaluated with neurology with an extensive workup including MRI of the C/T/L/S which was negative for acute process or cauda equina. 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 Pt's hospital course was further complicated by pneumonia and she was started on IV abx. She was also noted to be pancytopenic on presentation which had rsolved and thought to be infectious in etiology. We were also consulted to evaluated her splenomegaly and mild, diffuse RUBIO which was concerning for underlying lymphoma. She was prepared for IR consult for US guided biopsy of her axillary LN, however, this was aborted by IR as US revealed resolution of her RUBIO. She was discharged to a nursing facility and planned for outpatient follow up. Family states she has declined since her discharge. She presented to [facility] on 08/16/2018 for progressive weakness and SOB. She was admitted with sepsis, MARISA and PNA. Today, she developed acute worsening abdominal pain which prompted CT of the abdomen and pelvis which revealed splenomegaly with several peripheral lesions suggesting areas of infarction. There is significant progression of retroperitoneal, pelvic and inguinal adenopathy. Small quantity of free pelvic fluid with dependent increased attenuation suggesting a hemorrhagic component. Mild anasarca with infiltration of the mesenteric and retroperitoneal fat. The blood in the pelvis may be splenic in origin. We have been consulted for further recommendations. Ms. Sy has been confused and has had significant abdominal pain today. She has just fallen to sleep after receiving dose of fentanyl. They have requested we not wake her at this time. Patient did not wake up during my physical assessment. Information gained from family at bedside. Past Med Surg Social Fam HX - Past Medical History Medical history: hyperlipidemia, hypertension, renal disease, thyroid disease Additional medical history: Gout Psychiatric history: no psych history - Past Surgical History Surgical History: no surgical history Additional surgical history: none - Social History Smoking Status: Former smoker Smokeless Tobacco Status: No Alcohol use: none Drug use: none - Family History Father Hx Family Cancer: Yes ROS unobtainable: due to mental status Oncology - Exam - Constitutional General appearance: no acute distress, no febrile - Head Head exam: Present: atraumatic - ENT ENT exam: Present: mucous membranes moist, normal oropharynx - Respiratory Respiratory exam: Present: decreased breath sounds, CTAB. Absent: respiratory distress - Cardiovascular Cardiovascular exam: Present: RRR, tachycardia - Extremities Exam Extremities exam: Present: pedal edema. Absent: calf tenderness - Skin Skin exam: Present: dry, pallor, warm Inpatient Charges Provider: Dr. Jaguar Castillo
[2018-08-17] MEDS ORDERED: *HR* Propofol 200 MG/20 ML VIAL IVP ONE (17:52)
[2018-08-17] MEDS ORDERED: Dexamethasone 4 MG/ML VIAL ONE (17:52)
[2018-08-17] MEDS ORDERED: *HR* Succinylcholine 200 MG/10 ML VIAL IVP ONE (17:52)
[2018-08-17] MEDS ORDERED: *HR* Rocuronium Bromide 50 MG/5 ML VIAL ONE (17:52)
[2018-08-17] MEDS ORDERED: Ondansetron 4 MG/2 ML VIAL ONE (17:52)
[2018-08-17] MEDS ORDERED: Lidocaine -MPF 2% 2 ML VIAL ONE (17:52)
--- NOTE | 2018-08-17 17:53 | AcuteCare Surgery Consult Note ---
Date of Encounter: 08/17/18 Time of Encounter: 17:30 Assessment and Plan (1) Splenic hemorrhage Current Visit: Yes Status: Acute Currently stable. Discussed case with oncologist and hospitalist. Concern for lymphoma given finding on CT. Very concerned for worsening of splenic bleeding which is stable for now. Recommend splenectomy. Indications for surgery are discussed with the patient and her family. They include splenic bleeding and unremitting abdominal pain. Also, it is discussed that splenectomy is not a cure for lymphoma but, will aid in the diagnosis and treatment of lymphoma. Procedure, risks and benefits discussed. Her baseline condition is very fragile and her risks for surgery and anaesthesia are moderate. Possible complications include but, are not limited to bleeding, infection, OPSI, injury to bowel, pancreas or stomach, DVT/PE, stroke, TX or . The patient and her family understand and wish to proceed as advised. Pre-op vaccines (pneumococcal 23, meningococcal, and Hib) are ordered and given. Type and screen for 2 U PRBC. Surgery is scheduled. (2) Lymphadenopathy Current Visit: Yes Status: Acute See above (3) Abnormal CT of the abdomen Current Visit: Yes Status: Acute See above (4) HTN (hypertension) Current Visit: No Status: Chronic Continue to manage per primary service Qualifiers: Hypertension type: essential hypertension Qualified Code(s): I10 - Essential (primary) hypertension (5) Abdominal pain Current Visit: No Status: Resolved See above Qualifiers: Abdominal location: left lower quadrant Qualified Code(s): R10.32 - Left lower quadrant pain (6) Splenomegaly Current Visit: Yes Status: Acute see above History of Present Illness Reason for consult: other (splenic hemorrhage) Past Med Surg Social Fam HX - Past Medical History Medical history: hyperlipidemia, hypertension, renal disease, thyroid disease Additional medical history: Gout Psychiatric history: no psych history - Past Surgical History Surgical History: no surgical history Additional surgical history: none - Social History Smoking Status: Former smoker Smokeless Tobacco Status: No Alcohol use: none Drug use: none - Family History Father Hx Family Cancer: Yes Medications and Allergies Allopurinol [Zyloprim 100 MG] 100 mg PO DAILY 07/27/18 [History] Acetaminophen [Tylenol] 650 mg PO Q6HR tablet 08/09/18 [Rx] Lisinopril [Zestril] 10 mg PO BID #0 08/09/18 [Rx] Ondansetron ODT [Zofran ODT] 4 mg SL Q6HR PRN tab.rapdis 08/09/18 [Rx] Famotidine [Pepcid] 20 mg PO BID 08/16/18 [History] Ipratropium/Albuterol Sulfate [Iprat-Albut 0.5-3(2.5) mg/3 ml] 3 ml IH QID 08/16/18 [History] Levothyroxine Sodium [Levo-T] 50 mcg PO QAM 08/16/18 [History] Lidocaine Patch [Lidoderm 5% patch] 1 patch TP DAILY 08/16/18 [History] Melatonin [Melatin] 1.5 mg PO HS PRN 08/16/18 [History] Metoprolol Tartrate [Lopressor] 25 mg PO BID 08/16/18 [History] Ondansetron HCl [Zofran] 4 mg PO TID 08/16/18 [History] Oxygen 2 l IH CONT 08/16/18 [History] Allergy/AdvReac Type Severity Reaction Status Date / Time No Known Allergies Allergy Verified 07/27/18 09:39 Review of Systems All systems PM: The remainder of the systems were reviewed and are negative - Constitutional as per HPI, anorexia, fatigue, weakness, other (poor sleep), no chills, no fever(s), no night sweats - EENT Nose, mouth and throat: dry mouth, no dizziness, no nasal congestion, no nasal discharge, no sinus pain, no sinus pressure, no sore throat - Cardiovascular dyspnea, dyspnea on exertion, no chest pain, no edema - Respiratory dyspnea, wheezing, no cough - Gastrointestinal abdominal pain, nausea, no bloating, no constipation, no diarrhea, no vomiting - Genitourinary Genitourinary: urinary incontinence, other (No urine output recorded) - Musculoskeletal atrophy, back pain, limited range of motion, muscle weakness - Integumentary dry skin, no pruritus, no rash, no wounds, no jaundice - Neurological confusion, dizziness, focal weakness, tremor(s), weakness - Psychiatric anxiety, depression - Endocrine fatigue - Hematologic/Lymphatic no easy bleeding, no easy bruising General Surgery Exam Initial Vital Signs Temp Pulse Resp BP Pulse Ox 98.1 F 89 22 94/58 92 08/16/18 11:08 08/16/18 11:08 08/16/18 11:08 08/16/18 11:08 08/16/18 11:08 - General physical appearance moderate distress, moderate pain, other (not very responsive this evening. Family at bedside report she was more alert prior to Fentenyl given for abdominal pain.). negative: jaundice - Eyes PERRL, normal ocular movement. negative: icteric - ENT no congestion, dry mucosa. negative: nasal discharge - Neck no masses, no lymphadectomy, no venous distension - Respiratory normal respiratory effort, clear to auscultation - Cardiovascular Cardiovascular exam: Present: RRR. Absent: murmurs - Abdomen Abdomen general surgery: Present: bowel sounds present, soft, distended (+palpable spleen), tender, guarding. Absent: rebound Abdominal Tenderness: Present: LUQ, LLQ - Genitourinary Present: normal external genitalia - Integumentary Integumentary general surgery: Present: warm and dry - Neurologic Present: other (somnolent) - Psychiatric Psychiatric general surgery: Present: other (samnolent) Exam Initial Vital Signs Temp Pulse Resp BP Pulse Ox 98.1 F 89 22 94/58 92 08/16/18 11:08 08/16/18 11:08 08/16/18 11:08 08/16/18 11:08 08/16/18 11:08 Results - Labs 08/17/18 04:24 08/17/18 04:24 Abnormal lab results WBC 24.2 K/mcL (4.3-11.1) H 08/17/18 04:24 RBC 3.35 M/mcL (3.82-4.97) L 08/17/18 04:24 Hgb 9.8 g/dL (11.5-15.4) L 08/17/18 04:24 Hct 30.2 % (35.3-44.9) L 08/17/18 04:24 RDW 15.3 % (11.5-14.5) H 08/17/18 04:24 Plt Count 118 K/mcL (140-400) L 08/17/18 04:24 Band Neutrophils % 32.0 % (0-4) H 08/17/18 04:24 Neutrophils # 17.9 K/mcL (1.6-8.9) H 08/17/18 04:24 Monocytes # 1.9 K/mcL (0.0-1.3) H 08/17/18 04:24 Eosinophils # 1.5 K/mcL (0.0-0.6) H 08/17/18 04:24 Reactive Lymphocytes Present (Not Present) A 08/16/18 11:55 Platelet Estimate Decreased (Normal) L 08/17/18 04:24 ABG pO2 56 mmHg (85-104) L 08/16/18 21:31 ABG O2 Saturation 90 % (95-98) L 08/16/18 21:31 Sodium 134 mEq/L (136-145) L 08/17/18 04:24 BUN 36 mg/dL (8-23) H 08/17/18 04:24 Creatinine 2.69 mg/dL (0.60-1.20) H 08/17/18 04:24 Est GFR ( Amer) 20 (> 60) L 08/17/18 04:24 Est GFR (Non-Af Amer) 17 (> 60) L 08/17/18 04:24 Glucose 50 mg/dL (70-105) L 08/17/18 04:24 Lactic Acid 2.8 mmol/L (0.5-2.2) H 08/17/18 11:13 Uric Acid 9.7 mg/dL (2.3-7.6) H 08/17/18 14:01 AST 7 Units/L (13-39) L 08/16/18 11:55 ALT 5 Units/L (7-52) L 08/16/18 11:55 Lactate Dehydrogenase 296 Units/L (140-271) H 08/17/18 14:01 Serum Total Protein 6.3 g/dL (6.4-8.9) L 08/16/18 11:55 Albumin 1.8 g/dL (3.5-5.7) L 08/16/18 11:55 Globulin 4.5 g/dL (2.4-3.5) H 08/16/18 11:55 Albumin/Globulin Ratio 0.4 (1.1-2.2) L 08/16/18 11:55 Urine Clarity Turbid (Clear) A 08/16/18 11:36 Ur Specific [place] > 1.030 (1.010-1.025) H 08/16/18 11:36 Urine Protein >=300 mg/dL (Neg-Trace) H 08/16/18 11:36 Urine Ketones Trace mg/dL (Negative) H 08/16/18 11:36 Urine Bilirubin Small (Negative) H 08/16/18 11:36 Ur Leukocyte Esterase Small (Negative) H 08/16/18 11:36 Urine Microscopic WBC 30-50 per hpf (0-3) H 08/16/18 11:36 Ur Squamous Epith Cells Many per lpf (None-Few) H 08/16/18 11:36 Urine Yeast Present per hpf (None Seen) H 08/16/18 11:36 Ur Culture Indicated? NO. (NO) A 08/16/18 11:36 Diabetes panel 08/17/18 Range/Units 04:24 Sodium 134 L (136-145) mEq/L Potassium 4.1 (3.5-5.1) mEq/L Chloride 105 (98-107) mEq/L Carbon Dioxide 23 (23-29) mEq/L BUN 36 H (8-23) mg/dL Creatinine 2.69 H (0.60-1.20) mg/dL Glucose 50 L (70-105) mg/dL Calcium 8.8 (8.6-10.3) mg/dL Calcium panel 08/17/18 08/17/18 Range/Units 04:24 14:01 Calcium 8.8 (8.6-10.3) mg/dL Phosphorus < 1.0 L* 2.9 (2.7-4.5) mg/dL Pituitary panel 08/17/18 Range/Units 04:24 Sodium 134 L (136-145) mEq/L Potassium 4.1 (3.5-5.1) mEq/L Chloride 105 (98-107) mEq/L Carbon Dioxide 23 (23-29) mEq/L BUN 36 H (8-23) mg/dL Creatinine 2.69 H (0.60-1.20) mg/dL Glucose 50 L (70-105) mg/dL Calcium 8.8 (8.6-10.3) mg/dL Adrenal panel 08/17/18 Range/Units 04:24 Sodium 134 L (136-145) mEq/L Potassium 4.1 (3.5-5.1) mEq/L Chloride 105 (98-107) mEq/L Carbon Dioxide 23 (23-29) mEq/L BUN 36 H (8-23) mg/dL Creatinine 2.69 H (0.60-1.20) mg/dL Glucose 50 L (70-105) mg/dL Calcium 8.8 (8.6-10.3) mg/dL All other labs normal. - Imaging CT scan - abdomen: image reviewed (Splenomegaly with suspected hemorrhage. +Lymphadenopathy) CT scan - pelvis: image reviewed Consult Discharge Plan - Plan Referrals: Julian Bhatt DO [Primary Care Provider] -
[2018-08-17] MEDS ORDERED: Lidocaine -MPF 4% 5 ML AMPUL ONE (17:56)
[2018-08-17] MEDS ORDERED: Pneumococcal 23 Valent Vaccine 25 MCG/0.5 ML VIAL IM ONE (18:07)
[2018-08-17] MEDS ORDERED: [UNRECOGNIZED DRUG - OTHER] IM ONE (18:09)
[2018-08-17] MEDS ORDERED: Heparin 1,000 UNITS/500 mL 500 ML ONE (18:14)
--- NOTE | 2018-08-17 18:28 | Anesthesia Evaluation PreOp ---
Date of Encounter: 08/17/18 Time of Encounter: 18:30 - Past History Planned Operation: Exploratory Lap, Open Splenectomy Cardiac History: HTN, Hyperlipidemia Pulmonary History: Denies Any Significant HX DIE REPAIR History: Denies Any Significant HX Other Medical History: Renal (CKD), Thyroid Anesthesia History: No Prior Anesthetic Complications : No Alcohol Use: none Drug use: none Medications and Allergies Allopurinol [Zyloprim 100 MG] 100 mg PO DAILY 07/27/18 [History] Acetaminophen [Tylenol] 650 mg PO Q6HR tablet 08/09/18 [Rx] Lisinopril [Zestril] 10 mg PO BID #0 08/09/18 [Rx] Ondansetron ODT [Zofran ODT] 4 mg SL Q6HR PRN tab.rapdis 08/09/18 [Rx] Famotidine [Pepcid] 20 mg PO BID 08/16/18 [History] Ipratropium/Albuterol Sulfate [Iprat-Albut 0.5-3(2.5) mg/3 ml] 3 ml IH QID 08/16/18 [History] Levothyroxine Sodium [Levo-T] 50 mcg PO QAM 08/16/18 [History] Lidocaine Patch [Lidoderm 5% patch] 1 patch TP DAILY 08/16/18 [History] Melatonin [Melatin] 1.5 mg PO HS PRN 08/16/18 [History] Metoprolol Tartrate [Lopressor] 25 mg PO BID 08/16/18 [History] Ondansetron HCl [Zofran] 4 mg PO TID 08/16/18 [History] Oxygen 2 l IH CONT 08/16/18 [History] Allergy/AdvReac Type Severity Reaction Status Date / Time No Known Allergies Allergy Verified 07/27/18 09:39 - Meds/Allergy Pre-op Review Medications Reviewed: Yes Allergies Reviewed: Yes Beta Blockers on Current Med List: No Anesthesia Results - Labs 08/17/18 04:24 08/17/18 04:24 - Imaging EKG: report reviewed (SR Rt BBB) Additional studies: ECHO EF 65%, no pulm htn Anesthesia Exam Vital Signs/O2 Sat/Glucose, Most Current Temp Pulse Resp BP Pulse Ox 08/17/18 15:14 97.9 F 110 22 103/63 94 Height: 5'7 Weight: 182 lbs NPO (# of Hours): MN Pain Scale: 0 - HEENT Pupil (Motor): Pupils equal, EOMI Mallampati: III Teeth: Edentulous Oral Opening: Less than or equal to 3 - DIE REPAIR LOC: Unable to assess DIE REPAIR Motor: Normal RUE, Normal LUE, Normal RLE, Normal LLE, Normal Face DIE REPAIR Sensory: Normal: RUE, LUE, RLE, LLE, Face - Cardiac Rhythm: Regular Murmur: None JVD: No Carotid Bruit: No - Pulmonary Breath Sounds: bilateral Clear Respiratory Effort: Symmetrical Anesthesia Assess/Plan ASA Score: 3 (HTN CKD Hypothyroid) Level of consciousness: Cooperative, Oriented Anesthetic Plan: General Autologous Blood: No Monitoring Plan: Standard Monitors (po), A-Line (ssible) Recovery Plan: PACU (Discussed GA with family, possible A-Line, possible ICU, agrees to proceed)
[2018-08-17] MEDS ORDERED: [UNRECOGNIZED DRUG - OTHER] IM ONE (18:30)
[2018-08-17] MEDS ORDERED: *HR* FentaNYL (PF) 100 MCG/2 ML VIAL ONE (19:21)
[2018-08-17] MEDS ORDERED: *HR* PHENYLEPHRINE 1,000 MCG/10 ML SYRINGE IVP ONE (19:46)
[2018-08-17] MEDS ORDERED: *HR* Vasopressin 20 UNIT/ML VIAL ONE (19:51)
[2018-08-17] MEDS ORDERED: Acetaminophen IV 1,000 MG/100 ML INFUS..BTL ONE (19:51)
[2018-08-17] MEDS ORDERED: *HR* HYDROMORPHONE 2 MG/ML VIAL ONE (20:10)
[2018-08-17] MEDS ORDERED: SUGAMMADEX SODIUM 500 MG/5 ML VIAL IV ONE (20:28)
--- NOTE | 2018-08-17 21:05 | Operative Note ---
Date of procedure: 08/17/18 Pre-op diagnosis: splenic hemorrhage Post-op diagnosis: same Procedure: Splenectomy Complications: None Anesthesia: GETA Surgeon: Mono Saleem Was there an special education assistant present: No Estimated blood loss (cc): 100 Specimen: spleen Condition: stable Disposition: PACU Procedure in Detail: This 87-year-old female was taken to the operating room and placed in the supine position. After induction of anesthesia patient's anterior abdominal wall was prepped and draped in the usual sterile fashion. An arterial line was placed by anesthesia. A left subcostal incision is made. Intra-abdominal cavity is entered carefully. Immediately dark red blood is suctioned from the splenic space. The spleen is incredibly slight friable with multiple fractures and its capsule. It is enlarged. Its attachments to the peritoneum are easily fractured bluntly with finger dissection. The splenic hilum is grasped and clamped. The Enseal device is used to divide across the splenic hilum near the spleen and the spleen is removed. The splenic artery and splenic vein are suture ligated with 0 silk sutures. Copious irrigation was carried out in the left upper quadrant. A small splenule was identified and removed. Pancreases unharmed. The wound is then closed in layers using Vicryl sutures on the rectus muscle and #1 loop PDS on the external oblique and fascia. The muscle was injected with 0.5% Marcaine. Skin is closed with janae and a sterile dressing is placed. Patient tolerated procedure well taken to PACU in good condition.
[2018-08-17] MEDS ORDERED: Ondansetron 4 MG/2 ML VIAL IVP PRN (21:33)
[2018-08-17] MEDS ORDERED: Naloxone 0.4 MG/ML INJ IVP PRN (21:33)
[2018-08-17] MEDS ORDERED: Haloperidol Lactate 5 MG/ML VIAL IVP PRN (21:33)
[2018-08-17] MEDS ORDERED: Ringers Solution, Lactated 1,000 ML ONE (21:35)
[2018-08-17] MEDS ORDERED: 0.9 % Sodium Chloride 1,000 ML IVC ONE ×2 (21:44)
--- NOTE | 2018-08-17 23:13 | Electrocardiograph Report ---
[address] [address] Test Date: 2018-08-16 Pat Name: Bambi Sy Department: EXAM6 Room: [facility] Gender: F Rehab Specialist: : [id number] Requested By: Gurmeet Carrasquillo Order Number: [id number] Reading MD: Allen Todd Measurements Intervals [place] Rate: 85 P: 47 [place]: 159 QRS: -48 QRSD: 145 T: 75 QT: 400 QTc: 476 Interpretive Statements Sinus rhythm Atrial premature complexes RBBB and LAFB Electronically Signed On 08-17-2018 23:12:13 EDT by Allen Todd
[2018-08-18] MEDS ORDERED: Piperacillin/Tazobactam 3.375 GM in 0.9 % Sodium Chloride Mini Bag 100 ML IVPB SCH
[2018-08-18] MEDS ORDERED: Acetaminophen IV 1,000 MG/100 ML INFUS..BTL IVPB SCH
[2018-08-18] MEDS ORDERED: 0.9 % Sodium Chloride 1,000 ML IVC ONE (01:04)
[2018-08-18 01:22] LABS: Hematocrit 22.1 % (35.3-44.9); Mean Corpuscular Volume 95.7 fL (83.0-100.0); Red Blood Count 2.31 M/mcL (3.82-4.97); Red Cell Distribution Width 15.9 % (11.5-14.5)
[2018-08-18 01:23] LABS: Nucleated Red Blood Cells 0.3 /100 WBC (0)
[2018-08-18 01:24] LABS: Hemoglobin 6.8 g/dL (11.5-15.4); Mean Corpuscular HGB Conc 30.8 g/dL (31.6-35.5); Mean Corpuscular Hemoglobin 29.4 pg (28.0-33.3)
[2018-08-18 01:26] LABS: Platelet Count 76 K/mcL (140-400)
[2018-08-18 01:37] LABS: INR 2.4; Prothrombin Time 27.6 Seconds (9.4-12.1)
[2018-08-18 01:39] LABS: Activated Partial Thrombo Time 49.2 Seconds (26.0-36.0)
[2018-08-18 01:42] LABS: Calcium 7.2 mg/dL (8.6-10.3); Potassium 4.6 mEq/L (3.5-5.1)
[2018-08-18 01:48] LABS: Eosinophils # 0.6 K/mcL (0.0-0.6); Lymphocytes # 10.2 K/mcL (0.6-4.6); Monocytes # 1.3 K/mcL (0.0-1.3); Neutrophils # 18.4 K/mcL (1.6-8.9); Platelet Estimate Decreased (Normal)
--- NOTE | 2018-08-18 04:10 | Procedure Note ---
Date of procedure: 08/18/18 Pre-op diagnosis: Hemorrhagic shock Procedure: Procedure Note Procedure: Central Line Physician(s): Dr Oren Wiseman Indication: Hemorrhagic shock Anesthesia: 2% Lidocaine A time-out was completed, verifying correct patient, procedure, site, positioning, and implant(s) or special equipment if applicable. Patients right IJ area was prepped and draped in usual sterile fashion. 2% Lidocaine was used to anesthetize the area. A triple lumen central line was introduced over a wire via the Seldinger technique, then sutured in place. Good blood flow was noted from all ports. The patient tolerated the procedure well. Chest x-ray was ordered to assess for pneumothorax and catheter placement. Complications: None immediate Anesthesia: IV sedation Was there an players assistant present: No Estimated blood loss (cc): 5 Specimen: none Pathology: none sent Condition: critical
[2018-08-18 04:24] LABS: Hematocrit 21.3 % (35.3-44.9); Hemoglobin 6.4 g/dL (11.5-15.4); Mean Corpuscular Hemoglobin 29.4 pg (28.0-33.3); Mean Corpuscular Volume 97.7 fL (83.0-100.0); Mean Platelet Volume 11.1 fL (9.4-12.4); Red Blood Count 2.18 M/mcL (3.82-4.97); Red Cell Distribution Width 16.1 % (11.5-14.5)
[2018-08-18] MEDS: Norepinephrine 4 MG in D5% in Water 250 ML IVC SCH ×2 (04:29→07:35)
[2018-08-18 04:30] LABS: ABG Base Excess -18 mEq/L (-2 to 3); ABG HCO3 11 mEq/L (21-27); ABG Oxygen Saturation 71 % (95-98); ABG PCO2 44 mmHg (35-45); ABG PH 7.02 pH Units (7.32-7.45); ABG PO2 54 mmHg (85-104); ABG TCO2 13 mEq/L (20-26)
[2018-08-18 04:30] LABS: Platelet Count 75 K/mcL (140-400)
[2018-08-18 04:42] LABS: Calcium 7.4 mg/dL (8.6-10.3); Potassium 4.9 mEq/L (3.5-5.1)
--- NOTE | 2018-08-18 04:55 | Procedure Note ---
Date of procedure: 08/18/18 Procedure: Procedure Note Procedure: Intubation Physician(s): Dr Oren Wiseman Indication: Acute hypoxic respiratory failure / inability to protect airway Sedation/Neuromuscular vasile: The patient was prepared in the usual fashion, and a size 7 endotrachial tube was placed under direct visualization, then taped at 22 inches at the teeth. Exam revealed bilateral breath sounds and good chest rise without air sounds in the abdomen. End-tidal CO2 monitor was also used to confirm tracheal placement. The patient was started on mechanical ventilation, and chest x-ray was ordered to assess for endotracheal tube placement. Complications: None immediate Was there an assistant baseball coach present: No Estimated blood loss (cc): 0 Specimen: None Condition: critical Disposition: ICU
[2018-08-18] MEDS: Ipratropium/Albuterol Neb 3 ML IH SCH ×4 (04:57→23:36)
--- NOTE | 2018-08-18 05:04 | Event Note ---
Date of Encounter: 08/18/18 Time of Encounter: 05:03 I was informed about the patients critical state upon arrival from the OR. She remained obtunded for hours after surgery and had dysynchronic breathing. She remained hypotensive despite >2L of fluids boluses and albumin infusions. It is noted that a repeat H/H was not done over the last 24 hours so a study was repeated urgently and noted at 6.8 down from 9.8 preoperatively. Unfortunately she has antibodies requiring further testing and precluding immediate blood transfusions. I placed a right IJ CVC to start norepinephrine for vasopressor support. Her blood gas and chemistries revealed high and normal anion gap metabolic acidosis with concomitant respiratory acidosis. I intubated for airway protection and hypoxic respiratory failure with acidosis. Fentanyl infusion will be started for analgesia and sedation. Will start sodium bicarb infusion. She remains in a critical state with poor prognosis. Would also recommend she undergo head CT once more stabilized to ensure she did not suffer a postoperative stroke. Follow up need on obtaining blood products for transfusion. CARMEN CARDOSO.
[2018-08-18] MEDS: Sodium Bicarbonate 150 MEQ in D5% in Water 1,000 ML IVC SCH ×2 (05:25→13:47)
[2018-08-18] MEDS: *HR* Heparin 5,000 UNIT/ML VIAL SQ SCH ×2 (06:00→18:36)
[2018-08-18] MEDS: Piperacillin/Tazobactam 3.375 GM in 0.9 % Sodium Chloride Mini Bag 100 ML IVPB SCH ×3 (06:35→19:59)
[2018-08-18] MEDS: FentaNYL (PF) 1,000 MCG in 0.9 % Sodium Chloride 80 ML IVC SCH ×2 (06:41→15:37)
[2018-08-18 07:06] LABS: ABG Base Excess -17 mEq/L (-2 to 3); ABG HCO3 11 mEq/L (21-27); ABG Oxygen Saturation 100 % (95-98); ABG PCO2 31 mmHg (35-45); ABG PH 7.15 pH Units (7.32-7.45); ABG PO2 345 mmHg (85-104); ABG TCO2 12 mEq/L (20-26)
[2018-08-18] MEDS ORDERED: D5% in Water 250 ML ONE (07:17)
[2018-08-18] MEDS ORDERED: *HR* Norepinephrine 4 MG/4 ML VIAL IVC ONE (07:17)
[2018-08-18] MEDS ORDERED: Sodium Bicarbonate 50 MEQ/50 ML VIAL ONE (07:17)
[2018-08-18] MEDS ORDERED: Sodium Bicarbonate 50 MEQ/50 ML VIAL IVP ONE (07:23)
[2018-08-18] MEDS ORDERED: *HR* Midazolam HCl 2 MG/2 ML VIAL IVP ONE (07:23)
[2018-08-18] MEDS: EPINEPHrine 5 MG in D5% in Water 250 ML IVC SCH (07:34)
[2018-08-18] MEDS: Dexmedetomidine HCl 400 MCG/100 ML MLS IVC SCH ×3 (07:35→21:31)
[2018-08-18] MEDS: *HR* Midazolam HCl 5 MG/5 ML VIAL IVP ONE ×2 (07:37→08:34)
[2018-08-18] MEDS ORDERED: Artificial Tears SOLN 15 ML BOTTLE BOTH EYES PRN (08:04)
[2018-08-18] MEDS ORDERED: 0.9 % Sodium Chloride 250 ML ONE ×6 (08:16→21:24)
--- NOTE | 2018-08-18 08:55 | AcuteCareSurgery Progress Note ---
Date of Encounter: 08/18/18 Time of Encounter: 08:49 - Assessment and Plan (1) Splenic hemorrhage Current Visit: Yes Status: Acute This is an 87-year-old female with medical history significant for hypertension, dyslipidemia, kidney disease who initially presented with shortness of breath from her fdc. - Further evaluation showed concern for possible lymphoma upon reviewing finding on CT showing retroperitoneal, pelvic, inguinal lymphadenopathy - CT additionally showed splenomegaly with several lesions suggesting areas of infarction, with areas of free pelvic fluid suggesting possible splenic hemorrhage. 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 Hemoglobin = 6.8. Patient was also unable to maintain airway. She is noted to have hypoxic respiratory failure with acidosis. Patient was intubated. Central line was also placed. Patient was started on pressors. She is currently receiving 2 units packed red blood cells PLAN: Patient is postop day #1 status post splenectomy due to splenic hemorrhage. She remains critically ill in the ICU at this time. - Continue ventilator management and pressors per ICU team; wean pressors as tolerated; monitor for worsening hypotension or signs of acute bleed - Repeat hemoglobin and hematocrit after 2 units of packed red blood cells - Continue IV antibiotics - No further surgical management necessary at this time - Continue medical management per primary team (2) Sepsis Current Visit: Yes Status: Acute Plan as above Qualifiers: Qualified Code(s): A41.9 - Sepsis, unspecified organism Subjective Patient reports: afebrile Narrative: Patient was seen and examined at bedside this morning. She is postop day #1 status post splenectomy due to splenic hemorrhage. Patient initially tolerated procedure well and was taken to PACU in good condition. However patient did remained obtunded for hours after surgery. She was also hypotensive despite greater than 2 L of fluid boluses and albumin. Repeat hemoglobin = 6.8, which was down from 9.8 preoperatively. Patient received right internal jugular central venous catheter, and norepinephrine was started for pressure support. Additionally patient was having difficulty maintaining airway, and was intubated due to hypoxic respiratory failure with acidosis. Patient remains intubated on mechanical ventilation. She remains on Levophed for pressure support. Patient is to receive 2 units of PRBCs. However she remains in a critical state at this time. She will continue to be monitored in the ICU. Objective Vital Signs - Last 8 Hours Temp Pulse Resp BP Pulse Ox 08/18/18 08:17 26 90/54 96 08/18/18 07:00 116 26 83/49 94 08/18/18 06:47 96.8 F L 117 24 95/58 100 08/18/18 06:00 117 17 95/63 100 08/18/18 04:58 18 85/52 100 08/18/18 04:57 95 18 85/52 100 08/18/18 04:00 102 20 107/79 08/18/18 03:00 101 21 79/52 94 08/18/18 01:42 107 26 88/46 91 08/18/18 01:05 112 24 82/44 91 08/18/18 00:50 97.4 F L Intake and Output 08/17/18 08/18/18 08/18/18 23:59 07:59 15:59 Intake Total 1750 / 1750 3202 / 3202 0 / 0 Output Total 100 / 100 0 / 0 Balance 1650 / 1650 3202 / 3202 0 / 0 Intake: IV Fluids 1750 / 1750 3202 / 3202 Lactated Ringers 1,000 ML @ 0 500 / 500 mls/hr .ROUTE .STK-MED ONE Rx#: [id number] 0.9 % Sodium Chloride 1,000 ML 1000 / 1000 1338 / 1338 @ 120 mls/hr IVC .Q8H20M ONE Rx #:[id number] Levophed 4 MG In Dextrose 5% 254 / 254 250 ML @ 5 MCG/MIN 19.05 mls/hr IVC CONT FLAQUITO Rx#:[id number] ALBURX 5% 12.5 gm In 250 ml @ 250 / 250 250 / 250 60 mls/hr IVPB ONCE ONE Rx#: [id number] Zosyn 3.375 GM In 0.9 % Sodium 100 / 100 Chloride (Mini-Bag +) 100 ML @ 25 mls/hr IVPB BID FLAQUITO Rx#: [id number] Oral 0 / 0 0 / 0 Blood Product 0 / 0 Rbcs Leuko Poor As-3 Ph Unit 0 / 0 [id number] Output: Urine 0 / 0 Estimated Blood Loss 100 / 100 Catheter 0 / 0 Other: Weight 81.8 kg Blood Glucose* 92 125 Patient Weight 08/18/18 23:59 Weight 81.8 kg - General physical appearance severe distress, chronically ill, other (Patient remains critically ill in the ICU maintained on mechanical ventilation and blood pressure support) - ENT atraumatic, normocephalic - Neck Neck exam: trachea midline - Respiratory normal expansion, normal respiratory effort, clear to auscultation - Cardiovascular Cardiovascular exam: Present: RRR, regular rhythm, no murmurs/rubs/gallops - Abdomen Abdomen: Present: bowel sounds present (Hypoactive bowel sounds), soft. Absent: distended - Incision Incision: Present: clean and dry, intact - Psychiatric other (Unable to evaluate) - Labs 08/18/18 04:10 08/18/18 04:10 Diabetes panel 08/18/18 08/18/18 Range/Units 01:00 04:10 Sodium 137 137 (136-145) mEq/L Potassium 4.6 4.9 (3.5-5.1) mEq/L Chloride 112 H 112 H (98-107) mEq/L Carbon Dioxide 15 L 11 L (23-29) mEq/L BUN 39 H 40 H (8-23) mg/dL Creatinine 3.03 H 3.05 H (0.60-1.20) mg/dL Glucose 113 H 92 (70-105) mg/dL Calcium 7.2 L 7.4 L (8.6-10.3) mg/dL Calcium panel 08/17/18 08/18/18 08/18/18 Range/Units 14:01 01:00 04:10 Calcium 7.2 L 7.4 L (8.6-10.3) mg/dL Phosphorus 2.9 (2.7-4.5) mg/dL Pituitary panel 08/18/18 08/18/18 Range/Units 01:00 04:10 Sodium 137 137 (136-145) mEq/L Potassium 4.6 4.9 (3.5-5.1) mEq/L Chloride 112 H 112 H (98-107) mEq/L Carbon Dioxide 15 L 11 L (23-29) mEq/L BUN 39 H 40 H (8-23) mg/dL Creatinine 3.03 H 3.05 H (0.60-1.20) mg/dL Glucose 113 H 92 (70-105) mg/dL Calcium 7.2 L 7.4 L (8.6-10.3) mg/dL Adrenal panel 08/18/18 08/18/18 Range/Units 01:00 04:10 Sodium 137 137 (136-145) mEq/L Potassium 4.6 4.9 (3.5-5.1) mEq/L Chloride 112 H 112 H (98-107) mEq/L Carbon Dioxide 15 L 11 L (23-29) mEq/L BUN 39 H 40 H (8-23) mg/dL Creatinine 3.03 H 3.05 H (0.60-1.20) mg/dL Glucose 113 H 92 (70-105) mg/dL Calcium 7.2 L 7.4 L (8.6-10.3) mg/dL Consult Discharge Plan - Plan Referrals: Julian Bhatt DO [Primary Care Provider] -
--- NOTE | 2018-08-18 09:04 | Pulmonology Consult Note ---
<Jhon Barrera - Last Filed: 08/18/18 12:07> Date of Encounter: 08/18/18 Time of Encounter: 09:04 Assessment and Plan (1) Septic shock Current Visit: Yes Status: Acute Patient is in septic shock requiring vasopressors. She is on norepinephrine and epinephrine. Patient is also anemic with a hemoglobin of 6.4 this morning. Patient's blood did have antibodies ever being tested for however after discussion with acute care surgery and Dr. Ornelas the decision was made to go ahead and transfuse the patient with trauma blood. Patient does have an art line was placed to follow the patient's blood pressure in real time. The patient's blood pressure has improved with vasopressors and after receiving 1 unit of PRBCs. This is likely secondary to the patient's underlying pneumonia. (2) Acute kidney injury superimposed on CKD Current Visit: Yes Status: Acute Patient does have a history of chronic kidney disease stage III according to the family. There is a superimposed acute kidney injury with a creatinine of 3.05. The patient has not making urine at this time. Nephrology has been consult. The patient will undergo Hilda today. (3) Hypotension Current Visit: Yes Status: Acute The patient has been hypotensive here in the ICU. Patient is on 2 pressors Levophed and epinephrine. The patient is also receiving blood to help intravascularly. Qualifiers: Hypotension type: other hypotension type Qualified Code(s): I95.89 - Other hypotension (4) DIC (disseminated intravascular coagulation) Current Visit: Yes Status: Acute Patient has a low fibrinogen, low platelets, elevated PT/INR. There is concern that the patient could be going into DIC. Hem/Onc recommended giving Vitamin K and cyropercipitate. We will continue to follow the patients labs closely.P atient did recieve 2 units of FFP due to having and elevated INR with a low hg this morning. (5) Pneumonia Current Visit: Yes Status: Acute Patient's initial chest x-ray was concerning for pneumonia. Patient is currently on Zosyn. Patient's vancomycin have been held due to her poor renal function. Qualifiers: Pneumonia type: due to unspecified organism Laterality: unspecified laterality Lung location: unspecified part of lung Qualified Code(s): J18.9 - Pneumonia, unspecified organism (6) Splenic hemorrhage Current Visit: Yes Status: Acute CT scan is performed the abdomen and pelvis shows primarily with concern for possible splenic hemorrhage. 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 Acute care surgery is following the patient. (7) Anemia Current Visit: Yes Status: Acute Patient has an anemia of 6.4. The patient's blood was sent for a type and screen however the patient's blood had antibodies that were present and was sent to the reference lab for further identification. However due to the patient's m edical condition discussion was had with acute care surgery in the ICU attending and the decision was made to transfuse the patient with trauma blood. The patient received 2 units of packed red blood cells. We will continue to monitor the patient for any acute reactions. Qualifiers: Anemia type: unspecified type Qualified Code(s): D64.9 - Anemia, unspecified (8) Elevated INR Current Visit: Yes Status: Acute Patient has an elevated INR 2.4 and does not have a history of being on Coumadin. Due to the patient having a low hemoglobin and recently undergone surgery we will provide the patient with fresh frozen plasma. (9) Leukocytosis Current Visit: Yes Status: Acute Patient has a significant leukocytosis of 29.0. This is likely secondary to the patient's septic shock and recent surgery. We will continue to monitor the patient's white blood cell count. The patient is currently on Zosyn. Qualifiers: Leukocytosis type: unspecified Qualified Code(s): D72.829 - Elevated white blood cell count, unspecified (10) Lactic acid acidosis Current Visit: Yes Status: Acute Patient has a significantly elevated lactic acid of 9.5. Patient has been getting IV hydration and bicarbonate.. This is likely secondary to the patient being in septic shock. (11) DVT prophylaxis Current Visit: Yes Status: Acute Patient has SCD orders for DVT prophylaxis. History of Present Illness Consult date: 08/18/18 Requesting physician: Zi Tobar Reason for consult: other (Intubated ) Chief complaint: Respiratory failure History of present illness: Patient presented to the hospital with likely pneumonia and sepsis picture. CT scan of the abdomen and pelvis was performed which showed concern for spinal megaly and potential splenic bleed. The patient was then taken to the OR and underwent a splenectomy. Postoperatively the patient had respiratory failure and a drop in her hemoglobin. The patient was intubated overnight and became hypotensive so a central line was placed and the patient was started on Levophed. Patient was unable to be transfused overnight due to there being antibodies that were unable to be identified. Patient remained hypotensive in the ICU so no additional pressor of epinephrine was added. Due to the patient having antibodies in her blood it was difficult for type and screen to be completed in a rapid manner. After discussion with acute care surgery and the ICU attending we elected to transfuse the patient with 2 units of PRBC. Patient's renal function had continued to decline and is no longer making urine. Family was updated of her medical condition upon arrival this morning. They did state that she would not want to have CPR done. They are in agreement with making the patient DNR CCA. Past Med Surg Social Fam HX - Past Medical History Medical history: hyperlipidemia, hypertension, renal disease, thyroid disease Additional medical history: Gout Psychiatric history: no psych history - Past Surgical History Surgical History: no surgical history Additional surgical history: none - Social History Smoking Status: Former smoker Smokeless Tobacco Status: No Alcohol use: none Drug use: none - Family History Father Hx Family Cancer: Yes Medications and Allergies Allopurinol [Zyloprim 100 MG] 100 mg PO DAILY 07/27/18 [History] Acetaminophen [Tylenol] 650 mg PO Q6HR tablet 08/09/18 [Rx] Lisinopril [Zestril] 10 mg PO BID #0 08/09/18 [Rx] Ondansetron ODT [Zofran ODT] 4 mg SL Q6HR PRN tab.rapdis 08/09/18 [Rx] Famotidine [Pepcid] 20 mg PO BID 08/16/18 [History] Ipratropium/Albuterol Sulfate [Iprat-Albut 0.5-3(2.5) mg/3 ml] 3 ml IH QID 08/16/18 [History] Levothyroxine Sodium [Levo-T] 50 mcg PO QAM 08/16/18 [History] Lidocaine Patch [Lidoderm 5% patch] 1 patch TP DAILY 08/16/18 [History] Melatonin [Melatin] 1.5 mg PO HS PRN 08/16/18 [History] Metoprolol Tartrate [Lopressor] 25 mg PO BID 08/16/18 [History] Ondansetron HCl [Zofran] 4 mg PO TID 08/16/18 [History] Oxygen 2 l IH CONT 08/16/18 [History] Allergy/AdvReac Type Severity Reaction Status Date / Time No Known Allergies Allergy Verified 07/27/18 09:39 ROS unobtainable: due to endotracheal tube All Systems: The remainder of the systems were reviewed and are negative Physical Examination Vital Signs: Vital Signs, Last 4 Hours Temp Pulse Resp BP Pulse Ox 08/18/18 08:17 26 90/54 96 08/18/18 08:00 102 26 97/52 96 08/18/18 07:00 116 26 83/49 94 08/18/18 06:47 96.8 F L 117 24 95/58 100 08/18/18 06:00 117 17 95/63 100 General appearance: other Eyes: nonicteric (Patient is sedated and intubated.) ENT: oropharynx moist Neck: supple Effort: mildly labored Auscultation: bilateral: other (Course breath sounds bilaterally) Cardiovascular: regular rate and rhythm Gastrointestinal: soft, other (Patient has surgical dressings from recent splenectomy. Dressings are dry.) Extremities: no edema, pink and warm Musculoskeletal: no deformities other (Unable to assess due to the patient being sedated and intubated.) other (Unable to assess due to the patient being sedated and intubated.) Ventilator Settings Ventilator Settings: Ventilator Settings, Last 8 Hours Ventilator Tidal Volume 440 Setting Ventilator Tidal Volume 440 Setting Ventilator Tidal Volume 440 Setting Ventilator Tidal Volume 550 Setting Ventilator Tidal Volume 550 Setting Ventilator Tidal Volume 550 Setting Ventilator Tidal Volume 550 Setting Ventilator Respiratory Rate 26 Setting Ventilator Respiratory Rate 26 Setting Ventilator Respiratory Rate 26 Setting Ventilator Respiratory Rate 12 Setting Ventilator Respiratory Rate 12 Setting Ventilator Respiratory Rate 12 Setting Ventilator Respiratory Rate 12 Setting Actual Respiratory Rate 26 Actual Respiratory Rate 26 Actual Respiratory Rate 26 Actual Respiratory Rate 17 Actual Respiratory Rate 18 Actual Respiratory Rate 18 Positive End Expiratory 8 Pressure Positive End Expiratory 8 Pressure Positive End Expiratory 5 Pressure Positive End Expiratory 5 Pressure Positive End Expiratory 5 Pressure Positive End Expiratory 5 Pressure Positive End Expiratory 5 Pressure Peak Inspiratory Airway 27 Pressure Peak Inspiratory Airway 27 Pressure Peak Inspiratory Airway 24 Pressure Peak Inspiratory Airway 26 Pressure Peak Inspiratory Airway 27 Pressure Peak Inspiratory Airway 27 Pressure Results - Laboratory Findings CBC and BMP: 08/18/18 04:10 08/18/18 04:10 ABG ABG pH 7.15 pH Units (7.32-7.45) L* D 08/18/18 07:01 ABG pCO2 31 mmHg (35-45) L 08/18/18 07:01 ABG pO2 345 mmHg (85-104) H D 08/18/18 07:01 ABG O2 Saturation 100 % (95-98) H 08/18/18 07:01 PT/INR, D-dimer PT 27.6 Seconds (9.4-12.1) H 08/18/18 01:10 Abnormal lab findings: Abnormal lab results WBC 29.0 K/mcL (4.3-11.1) H 08/18/18 04:10 RBC 2.18 M/mcL (3.82-4.97) L 08/18/18 04:10 Hgb 6.4 g/dL (11.5-15.4) L 08/18/18 04:10 Hct 21.3 % (35.3-44.9) L 08/18/18 04:10 MCHC 30.0 g/dL (31.6-35.5) L 08/18/18 04:10 RDW 16.1 % (11.5-14.5) H 08/18/18 04:10 Plt Count 75 K/mcL (140-400) L 08/18/18 04:10 Band Neutrophils % 10.0 % (0-4) H 08/18/18 01:10 Myelocytes % 4.0 % (0) H 08/18/18 01:10 Neutrophils # 18.4 K/mcL (1.6-8.9) H 08/18/18 01:10 Lymphocytes # 10.2 K/mcL (0.6-4.6) H 08/18/18 01:10 Nucleated RBCs/100 WBC 0.3 /100 WBC (0) H 08/18/18 01:10 Reactive Lymphocytes Present (Not Present) A 08/16/18 11:55 Platelet Estimate Decreased (Normal) L 08/18/18 01:10 PT 27.6 Seconds (9.4-12.1) H 08/18/18 01:10 APTT 49.2 Seconds (26.0-36.0) H 08/18/18 01:10 ABG pH 7.15 pH Units (7.32-7.45) L* D 08/18/18 07:01 ABG pCO2 31 mmHg (35-45) L 08/18/18 07:01 ABG pO2 345 mmHg (85-104) H D 08/18/18 07:01 ABG HCO3 11 mEq/L (21-27) L 08/18/18 07:01 ABG Total CO2 12 mEq/L (20-26) L 08/18/18 07:01 ABG O2 Saturation 100 % (95-98) H 08/18/18 07:01 ABG Base Excess -17 mEq/L (-2 to 3) L 08/18/18 07:01 Chloride 112 mEq/L (98-107) H 08/18/18 04:10 Carbon Dioxide 11 mEq/L (23-29) L 08/18/18 04:10 BUN 40 mg/dL (8-23) H 08/18/18 04:10 Creatinine 3.05 mg/dL (0.60-1.20) H 08/18/18 04:10 Est GFR ( Amer) 18 (> 60) L 08/18/18 04:10 Est GFR (Non-Af Amer) 15 (> 60) L 08/18/18 04:10 POC Glucose 125 mg/dL (70-99) H 08/17/18 23:39 Lactic Acid 9.5 mmol/L (0.5-2.2) H* 08/18/18 07:10 Uric Acid 9.7 mg/dL (2.3-7.6) H 08/17/18 14:01 Calcium 7.4 mg/dL (8.6-10.3) L 08/18/18 04:10 AST 7 Units/L (13-39) L 08/16/18 11:55 ALT 5 Units/L (7-52) L 08/16/18 11:55 Lactate Dehydrogenase 296 Units/L (140-271) H 08/17/18 14:01 Serum Total Protein 6.3 g/dL (6.4-8.9) L 08/16/18 11:55 Albumin 1.8 g/dL (3.5-5.7) L 08/16/18 11:55 Globulin 4.5 g/dL (2.4-3.5) H 08/16/18 11:55 Albumin/Globulin Ratio 0.4 (1.1-2.2) L 08/16/18 11:55 Urine Clarity Turbid (Clear) A 08/16/18 11:36 Ur Specific [place] > 1.030 (1.010-1.025) H 08/16/18 11:36 Urine Protein >=300 mg/dL (Neg-Trace) H 08/16/18 11:36 Urine Ketones Trace mg/dL (Negative) H 08/16/18 11:36 Urine Bilirubin Small (Negative) H 08/16/18 11:36 Ur Leukocyte Esterase Small (Negative) H 08/16/18 11:36 Urine Microscopic WBC 30-50 per hpf (0-3) H 08/16/18 11:36 Ur Squamous Epith Cells Many per lpf (None-Few) H 08/16/18 11:36 Urine Yeast Present per hpf (None Seen) H 08/16/18 11:36 Ur Culture Indicated? NO. (NO) A 08/16/18 11:36 - Microbiology Findings Microbiology Findings: Microbiology, Last 48 Hours 08/16/18 11:31 Legionella Antigen - Final Urine,Clean Catch Streptococcus pneumoniae Antigen (M - Final 08/16/18 11:55 Blood Culture - Preliminary Peripheral Venipuncture Culture is incubating and being continuously monitored for growth. Final report to follow. 08/16/18 11:55 Blood Culture - Preliminary Peripheral Venipuncture Culture is incubating and being continuously monitored for growth. Final report to follow. - Clinical Findings Intake & Output: Intake & Output 08/17/18 08/18/18 08/18/18 23:59 07:59 15:59 Intake Total 1750 / 1750 3202 / 3202 350 / 350 Output Total 100 / 100 0 / 0 Balance 1650 / 1650 3202 / 3202 350 / 350 Weight 81.8 kg Consult Discharge Plan - Plan Referrals: Julian Bhatt, [Primary Care Provider] - <Doc Ornelas - Last Filed: 08/18/18 17:49> Date of Encounter: 08/18/18 All Systems: The remainder of the systems were reviewed and are negative Physical Examination Vital Signs: Vital Signs, Last 4 Hours Pulse Resp BP Pulse Ox 08/18/18 17:00 103 26 94/51 99 08/18/18 16:59 26 104/58 97 08/18/18 16:00 105 26 118/65 97 08/18/18 15:00 103 26 121/62 98 08/18/18 14:00 106 26 124/63 98 Ventilator Settings Ventilator Settings: Ventilator Settings, Last 8 Hours Ventilator Tidal Volume 440 Setting Ventilator Tidal Volume 440 Setting Ventilator Tidal Volume 440 Setting Ventilator Tidal Volume 440 Setting Ventilator Tidal Volume 440 Setting Ventilator Tidal Volume 440 Setting Ventilator Tidal Volume 440 Setting Ventilator Tidal Volume 440 Setting Ventilator Tidal Volume 440 Setting Ventilator Tidal Volume 440 Setting Ventilator Tidal Volume 440 Setting Ventilator Respiratory Rate 26 Setting Ventilator Respiratory Rate 26 Setting Ventilator Respiratory Rate 26 Setting Ventilator Respiratory Rate 26 Setting Ventilator Respiratory Rate 12 Setting Ventilator Respiratory Rate 26 Setting Ventilator Respiratory Rate 26 Setting Ventilator Respiratory Rate 26 Setting Ventilator Respiratory Rate 26 Setting Ventilator Respiratory Rate 26 Setting Ventilator Respiratory Rate 26 Setting Actual Respiratory Rate 26 Actual Respiratory Rate 26 Actual Respiratory Rate 26 Actual Respiratory Rate 26 Actual Respiratory Rate 26 Actual Respiratory Rate 26 Actual Respiratory Rate 26 Actual Respiratory Rate 26 Actual Respiratory Rate 26 Actual Respiratory Rate 26 Positive End Expiratory 8 Pressure Positive End Expiratory 8 Pressure Positive End Expiratory 8 Pressure Positive End Expiratory 8 Pressure Positive End Expiratory 8 Pressure Positive End Expiratory 8 Pressure Positive End Expiratory 8 Pressure Positive End Expiratory 8 Pressure Positive End Expiratory 8 Pressure Positive End Expiratory 8 Pressure Positive End Expiratory 8 Pressure Peak Inspiratory Airway 27 Pressure Peak Inspiratory Airway 29 Pressure Peak Inspiratory Airway 28 Pressure Peak Inspiratory Airway 27 Pressure Peak Inspiratory Airway 27 Pressure Peak Inspiratory Airway 27 Pressure Peak Inspiratory Airway 29 Pressure Peak Inspiratory Airway 27 Pressure Peak Inspiratory Airway 28 Pressure Peak Inspiratory Airway 26 Pressure Results - Laboratory Findings CBC and BMP: 08/18/18 12:35 08/18/18 12:35 ABG ABG pH 7.35 pH Units (7.32-7.45) D 08/18/18 14:39 ABG pCO2 37 mmHg (35-45) 08/18/18 14:39 ABG pO2 384 mmHg (85-104) H 08/18/18 14:39 ABG O2 Saturation 100 % (95-98) H 08/18/18 14:39 PT/INR, D-dimer PT 19.6 Seconds (9.4-12.1) H 08/18/18 12:35 Abnormal lab findings: Abnormal lab results WBC 25.8 K/mcL (4.3-11.1) H 08/18/18 12:35 RBC 2.98 M/mcL (3.82-4.97) L 08/18/18 12:35 Hgb 8.7 g/dL (11.5-15.4) L D 08/18/18 12:35 Hct 26.9 % (35.3-44.9) L 08/18/18 12:35 RDW 15.6 % (11.5-14.5) H 08/18/18 12:35 Plt Count 56 K/mcL (140-400) L 08/18/18 12:35 Band Neutrophils % 7.0 % (0-4) H 08/18/18 12:35 Myelocytes % 1.0 % (0) H 08/18/18 12:35 Neutrophils # 20.6 K/mcL (1.6-8.9) H 08/18/18 12:35 Nucleated RBCs/100 WBC 1.0 /100 WBC (0) H 08/18/18 12:35 Reactive Lymphocytes Present (Not Present) A 08/16/18 11:55 Platelet Estimate Decreased (Normal) L 08/18/18 12:35 Anisocytosis 1+ (Not Present) A 08/18/18 12:35 PT 19.6 Seconds (9.4-12.1) H 08/18/18 12:35 APTT 49.2 Seconds (26.0-36.0) H 08/18/18 01:10 Fibrinogen 110 mg/dL (169-393) L D 08/18/18 12:35 ABG pO2 384 mmHg (85-104) H 08/18/18 14:39 ABG HCO3 20 mEq/L (21-27) L 08/18/18 14:39 ABG O2 Saturation 100 % (95-98) H 08/18/18 14:39 ABG Base Excess -5 mEq/L (-2 to 3) L 08/18/18 14:39 Carbon Dioxide 17 mEq/L (23-29) L 08/18/18 12:35 BUN 42 mg/dL (8-23) H 08/18/18 12:35 Creatinine 3.14 mg/dL (0.60-1.20) H 08/18/18 12:35 Est GFR ( Amer) 17 (> 60) L 08/18/18 12:35 Est GFR (Non-Af Amer) 14 (> 60) L 08/18/18 12:35 Glucose 272 mg/dL (70-105) H 08/18/18 12:35 POC Glucose 125 mg/dL (70-99) H 08/17/18 23:39 Calculated Osmolality 308 (280-300) H 08/18/18 12:35 Lactic Acid 6.3 mmol/L (0.5-2.2) H* 08/18/18 12:35 Uric Acid 8.0 mg/dL (2.3-7.6) H 08/18/18 10:35 Calcium 7.4 mg/dL (8.6-10.3) L 08/18/18 12:35 Venous Ioniz Calcium 1.01 mmol/L (1.15-1.35) L 08/18/18 10:59 Total Bilirubin 1.3 mg/dL (0.3-1.0) H 08/18/18 12:35 Direct Bilirubin 0.7 mg/dL (0.0-0.2) H 08/18/18 12:35 Lactate Dehydrogenase 422 Units/L (140-271) H 08/18/18 10:35 Serum Total Protein 6.0 g/dL (6.4-8.9) L 08/18/18 12:35 Albumin 2.4 g/dL (3.5-5.7) L 08/18/18 12:35 Globulin 3.6 g/dL (2.4-3.5) H 08/18/18 12:35 Albumin/Globulin Ratio 0.7 (1.1-2.2) L 08/18/18 12:35 Urine Clarity Turbid (Clear) A 08/16/18 11:36 Ur Specific [place] > 1.030 (1.010-1.025) H 08/16/18 11:36 Urine Protein >=300 mg/dL (Neg-Trace) H 08/16/18 11:36 Urine Ketones Trace mg/dL (Negative) H 08/16/18 11:36 Urine Bilirubin Small (Negative) H 08/16/18 11:36 Ur Leukocyte Esterase Small (Negative) H 08/16/18 11:36 Urine Microscopic WBC 30-50 per hpf (0-3) H 08/16/18 11:36 Ur Squamous Epith Cells Many per lpf (None-Few) H 08/16/18 11:36 Urine Yeast Present per hpf (None Seen) H 08/16/18 11:36 Ur Culture Indicated? NO. (NO) A 08/16/18 11:36 - Microbiology Findings Microbiology Findings: Microbiology, Last 48 Hours 08/16/18 11:31 Legionella Antigen - Final Urine,Clean Catch Streptococcus pneumoniae Antigen (M - Final - Clinical Findings Intake & Output: Intake & Output 08/18/18 08/18/18 08/18/18 07:59 15:59 23:59 Intake Total 3202 / 3202 3657 / 3657 485 / 485 Output Total 0 / 0 0 / 0 0 / 0 Balance 3202 / 3202 3657 / 3657 485 / 485 Weight 81.8 kg 81.8 kg - Attending Attestation I examined this patient and my medical decision-making was reviewed with the Resident Physician. I agree with the documented findings, disposition and elizabeth atment plan as described except to the extent set forth below. We independently had [id number] contact with the patient I spent 65min of Critical Care time with this patient. It involved decision making of high complexity to assess, manipulate, and support vital organ system failure and/or to prevent further life threatening deterioration of the patient's condition. The time involved in the performance of separately reportable procedures was not counted toward critical care time. Patient seen and examined at bedside Labs, radiology, chart personally reviewed. Management was reviewed during multidisciplinary critical care rounds. CHIEF DEPUTY SHERIFF: Acute encephalopathy which is metabolic in nature and also related to sepsis patient was overbreathing the vent and very uncomfortable and we have deeply sedated her for ventilator mechanics there were no gross neurological deficits prior to deep sedation although she is at increased risk for CHIEF DEPUTY SHERIFF bleeding given thrombocytopenia Pulm: Hypoxic hypercapnic respiratory failure requiring intubation we have adjusted the ventilator to have a low tidal volume ventilatory strategy as if she is at high risk for development of ARDS-increase her minute ventilation to accommodate metabolic acidosis acceptable peak and plateau pressures at present she has a component of hydrostatic Pulmonary edema but this does not appear to be impacting gas exchange says significantly. She is not a candidate for spontaneous breathing trial Cards: Distributive shock secondary to sepsis and lactic acidosis patient has ev idence of multiorgan system failure some multiple pressors complicated by metabolic acidosis there may be a component of hemorrhagic shock we are monitoring this very closely GI: Patient has postop day 0 status post splenectomy because of concern for hemorrhage general surgery following continue GI prophylaxis while on vent Nutrition: Nothing by mouth for now Renal: AK I which is multifactorial including sepsis and shock suspect this is ATN she remains and uric plan to consult nephrology for CRRT; UOP Monitored, Cont to Trend sCr and monitor Electrolytes. 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 She does have evidence of DIC and cryoprecipitate is been given she has coagulopathy and FFP along with vitamin K been administered appreciate oncology recommendations cannot exclude a component of tumor lysis syndrome however uric acid is not the level that she would require rasburicase Endo: Glucose Monitored Integ/MSK: Skin Care per routine ICU Nursing Protocol to prevent ulcers. 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
[2018-08-18 09:12] LABS: ABG Base Excess -17 mEq/L (-2 to 3); ABG HCO3 11 mEq/L (21-27); ABG Oxygen Saturation 100 % (95-98); ABG PCO2 35 mmHg (35-45); ABG PH 7.12 pH Units (7.32-7.45); ABG PO2 361 mmHg (85-104); ABG TCO2 12 mEq/L (20-26); Blood Gas Modality ASSIST CONTROL; Blood Gas PEEP 8 cm H2O; Blood Gas Respiration Rate 26; Blood Gas VT 440 cc
[2018-08-18] MEDS: Norepinephrine 8 MG in D5% in Water 250 ML IVC SCH (10:20)
[2018-08-18] MEDS: Pantoprazole 40 MG VIAL IVP SCH (10:25)
[2018-08-18] MEDS: Chlorhexidine Rinse 15 ML MOUTHWASH MM SCH ×2 (10:25→19:59)
[2018-08-18] MEDS ORDERED: Calcium Gluconate 2,000 MG in 0.9 % Sodium Chloride 100 ML IVPB PRN (11:16)
[2018-08-18 11:18] LABS: VBG Ionized Calcium 1.01 mmol/L (1.15-1.35)
[2018-08-18] MEDS: Artificial Tears SOLN 15 ML BOTTLE BOTH EYES SCH ×3 (11:25→19:59)
[2018-08-18] MEDS ORDERED: 0.9 % Sodium Chloride 1,000 ML PRIME SCH (11:30)
--- NOTE | 2018-08-18 11:51 | Nephrology Progress Note ---
Date of Encounter: 08/18/18 Time of Encounter: 08:50 - Assessment and Plan (1) Acute kidney injury superimposed on CKD Current Visit: Yes Status: Acute Oliguric to anuric MARISA on CKD stage 3. Most likely MARISA 2/2 to sepsis and now progressed to septic shock causing a lactic acidosis. Lactic acid = 2.8 now increased to 9.8. Prerenal azotemia vs. ATN 2/2 septic shock. Blood pressures requiring Norepi and Epi. CT of abdomen showed no hydronephrosis. UA was contaminated but did show a specific gravity of 1.030 and proteinuria. We will repeat urine after patient begins to make urine. Yeast present which could be a contaminate but would consider adding an antifungal. Patient has not made urine over the last 24 hours. Overnight, patient had aggressive fluid hydration as after splenectomy patient began of hypotension. Patient currently has 2+ pitting edema. She is on Norepi and Epi. Blood pressures initially were tenuous this morning despite pressors but patient's blood pressures improved by noon and decision was made to start lilly. Risks and benefits were discussed with patient about the gravity of the situation and the possibility of further worsening hypotension with lilly. Family understood and agreed to CRRHDF. Plan: - Initiate CRRHDF today, will continue to monitor blood pressures closely - Urine Na and protein to creatinine ratio ordered, awaiting urine sample - avoid nephrotoxins - strict I&Os - adjust mediations to creatinine clearance (2) Septic shock Current Visit: Yes Status: Acute (3) Metabolic acidosis Current Visit: Yes Status: Acute Due to septic shock causing lactic acid acidosis. See plan above. Sodium bicarb drip to help correct. (4) Pneumonia Current Visit: Yes Status: Acute Qualifiers: Pneumonia type: due to unspecified organism Laterality: unspecified laterality Lung location: unspecified part of lung Qualified Code(s): J18.9 - Pneumonia, unspecified organism (5) Low phosphate levels Current Visit: Yes Status: Acute Phosphate level of < 1, most likely due to lab error as previous 2.9 on 08/09/18. Patient was given sodium phosphate 30mmol x 1 bag. Repeat Phos 2.9. Stopped replacement. (6) Splenomegaly Current Visit: Yes Status: Acute infarct suspected from CT scan. S/p splenectomy. General surgery following. (7) Anemia Current Visit: Yes Status: Acute Hbg= 6.8. Anemia due to acute blood loss during surgery. Patient is currently being transfused 2 units of packed her blood cells. Qualifiers: Anemia type: unspecified type Qualified Code(s): D64.9 - Anemia, unspecified Subjective Principal diagnosis: MARISA Interval history: Ms. Sy is a 87 year old female with pmh of hypertension, dyslipidemia and hypothyroidism [facility] Nephrology was consulted for MARISA and anuria. In reviewing records at [facility], she has had a CKD stage 3. Creatinine previously normal in July this month. Yesterday, splenectomy was performed. Patient's blood pressure began to drop despite fluid resuscitation. Patient was transferred to the ICU as pressors were needed and patient subsequently began to have respiratory failure needing intubation. Patient is currently intubated. Family is present in the room and plan was explained to them. Objective - Vital Signs Vital signs: Vital Signs Temp Pulse Resp BP Pulse Ox 08/18/18 11:43 26 129/56 98 08/18/18 11:21 98.4 F 99 26 137/65 98 08/18/18 11:00 98.5 F 92 26 150/67 98 08/18/18 10:35 98.2 F 99 26 111/53 98 08/18/18 10:00 98.1 F 97 26 138/65 99 08/18/18 09:34 102 26 110/58 99 08/18/18 09:27 26 120/63 100 08/18/18 09:00 98.2 F 101 26 107/60 99 08/18/18 08:54 98.2 F 97 26 111/53 98 08/18/18 08:17 26 90/54 96 08/18/18 08:00 101 26 101/60 99 08/18/18 07:00 116 26 83/49 94 08/18/18 06:47 96.8 F L 117 24 95/58 100 08/18/18 06:00 117 17 95/63 100 08/18/18 04:58 18 85/52 100 08/18/18 04:57 95 18 85/52 100 08/18/18 04:00 102 20 107/79 08/18/18 03:00 101 21 79/52 94 08/18/18 01:42 107 26 88/46 91 08/18/18 01:05 112 24 82/44 91 08/18/18 00:50 97.4 F L 08/17/18 23:55 103 16 77/45 91 08/17/18 23:00 101 18 78/50 90 08/17/18 22:50 16 91 08/17/18 21:50 96 16 87/51 93 08/17/18 21:14 96.4 F L 89 14 77/41 92 08/17/18 15:14 97.9 F 110 22 103/63 94 Intake and Output 08/17/18 08/18/18 08/18/18 23:59 07:59 15:59 Intake Total 1750 / 1750 3202 / 3202 1419 / 1419 Output Total 100 / 100 0 / 0 0 / 0 Balance 1650 / 1650 3202 / 3202 1419 / 1419 Intake: IV Fluids 1750 / 1750 3202 / 3202 369 / 369 Lactated Ringers 1,000 ML @ 0 500 / 500 mls/hr .ROUTE .STK-MED ONE Rx#: [id number] 0.9 % Sodium Chloride 1,000 ML 1000 / 1000 1338 / 1338 @ 120 mls/hr IVC .Q8H20M ONE Rx #:[id number] PRECEDEX Premix 400 mcg In 100 11 / 11 ml @ 0.2 MCG/KG/HR 4.09 mls/hr IVC .Q24H [facility] Rx#:[id number] EPINEPHrine 5 MG In Dextrose 5% 56 / 56 250 ML @ 2 MCG/MIN 6.12 mls/hr IVC CONT [facility] Rx#:[id number] Levophed 8 MG In Dextrose 5% 254 / 254 302 / 302 250 ML @ 5 MCG/MIN 9.68 mls/hr IVC CONT [facility] Rx#:[id number] ALBURX 5% 12.5 gm In 250 ml @ 250 / 250 250 / 250 60 mls/hr IVPB ONCE ONE Rx#: [id number] Zosyn 3.375 GM In 0.9 % Sodium 100 / 100 Chloride (Mini-Bag +) 100 ML @ 25 mls/hr IVPB BID [facility] Rx#: [id number] Oral 0 / 0 0 / 0 Blood Product 1050 / 1050 Plasma Unit [id number] 350 / 350 Plasma Unit [id number] 0 / 0 Rbcs Leuko Poor As-1 Unit 350 / 350 [id number] Rbcs Leuko Poor As-3 Ph Unit 350 / 350 [id number] Output: Urine 0 / 0 Estimated Blood Loss 100 / 100 Catheter 0 / 0 0 / 0 Gastric Drainage 0 / 0 Other: Weight 81.8 kg Blood Glucose* 92 125 219 Patient Weight 08/18/18 23:59 Weight 81.8 kg - General Appearance Exam: Constitutional: intubated Head: Normocephalic, atraumatic, right IJ central line Heart: tachycardic, flow murmur present Lungs: mechanically ventilated, equal breath sounds bilaterally Abdomen: Soft, nondistended, nontender, no guarding or rigidity. Extremities: bilateral +2 pitting edema present, moving feet Skin: Skin warm and dry, no jaundice - Lab 08/18/18 04:10 08/18/18 04:10 Most recent lab results ABG pH 7.12 pH Units (7.32-7.45) L* 08/18/18 09:08 ABG pCO2 35 mmHg (35-45) 08/18/18 09:08 ABG pO2 361 mmHg (85-104) H 08/18/18 09:08 ABG HCO3 11 mEq/L (21-27) L 08/18/18 09:08 ABG O2 Saturation 100 % (95-98) H 08/18/18 09:08 Calcium 7.4 mg/dL (8.6-10.3) L 08/18/18 04:10 Phosphorus 2.9 mg/dL (2.7-4.5) 08/17/18 14:01 Magnesium 1.7 mg/dL (1.6-2.6) 08/17/18 04:24 Consult Discharge Plan - Plan Referrals: Julian Bhatt DO [Primary Care Provider] -
[2018-08-18 12:51] LABS: Hematocrit 26.9 % (35.3-44.9); Hemoglobin 8.7 g/dL (11.5-15.4); Mean Corpuscular HGB Conc 32.3 g/dL (31.6-35.5); Mean Corpuscular Hemoglobin 29.2 pg (28.0-33.3); Mean Corpuscular Volume 90.3 fL (83.0-100.0); Mean Platelet Volume 11.7 fL (9.4-12.4); Red Blood Count 2.98 M/mcL (3.82-4.97); Red Cell Distribution Width 15.6 % (11.5-14.5)
[2018-08-18 12:59] LABS: INR 1.7; Prothrombin Time 19.6 Seconds (9.4-12.1)
[2018-08-18 13:01] LABS: Platelet Count 56 K/mcL (140-400)
[2018-08-18 13:08] LABS: Albumin 2.4 g/dL (3.5-5.7); Albumin/Globulin Ratio 0.7 (1.1-2.2); Bilirubin,Direct 0.7 mg/dL (0.0-0.2); Bilirubin,Indirect 0.6 mg/dL (0.0-1.2); Bilirubin,Total 1.3 mg/dL (0.3-1.0); Globulin 3.5 g/dL (2.4-3.5); Total Protein 5.9 g/dL (6.4-8.9)
[2018-08-18 13:11] LABS: Albumin 2.4 g/dL (3.5-5.7); Albumin/Globulin Ratio 0.7 (1.1-2.2); Bilirubin,Total 1.3 mg/dL (0.3-1.0); Calcium 7.4 mg/dL (8.6-10.3); Globulin 3.6 g/dL (2.4-3.5); Potassium 3.6 mEq/L (3.5-5.1)
--- NOTE | 2018-08-18 13:22 | IR Procedure Note ---
Date of procedure: 08/18/18 Consent Obtained: Written consent Timeout: Correct patient and procedure verified, Correct site verified, Time out performed, Skin prep completed Local anesthetic: Lidocaine 1% Indications: renal failure Procedure Performed: temp HDC Was there an assistant librarian present: No Site/Technique: rt IJ access Results/Findings: adequate placement Estimated blood loss (cc): 0 Complications: None; Tolerated procedure well Post Procedure Treatment Plan: CXR then dialyze Specimen: none
--- NOTE | 2018-08-18 13:43 | Oncology Inp Progress Note ---
<Hetal Harris - Last Filed: 08/18/18 13:40> Date of Encounter: 08/18/18 Time of Encounter: 12:10 (1) DIC (disseminated intravascular coagulation) Current Visit: Yes Status: Acute Assessment and plan: Patient noted to have approximately 4 g blood loss after splenic hemorrhage, patient decompensated and was intubated and placed in ICU. Abnormalities could be DIC or coagulopathies related to large amount of blood loss from splenic hemorrhage. Will treat for DIC at this time: 08/18/18 labs: PT 27.6/ INR 2.4 PTT 49.2 Fibrinogen 68 Platelets 75 post-op Hgb 6.4 (upon admission 10.2) Plan: Give vitamin K 10 mg IV now. Fibrinogen, coags, and CBC every 6 hours. Parameters: Give cryoprecipitate if Fibrinogen < 150 Give platelets if Plt < 75 Give pRBC's for Hgb < 8 Give FFP if INR > 1.5 prognosis: guarded, poor (2) Splenic hemorrhage Current Visit: Yes Status: Acute Assessment and plan: Assessment and plan: Plan for splenomegaly with infarct and concern for early/small areas of rupture as discussed above She does have evidence of diffuse RUBIO, previously attempted to biopsy axillary RUBIO on 08/07/2018 however aborted due to no identifiable adenopathy on US We will await pathology from splenectomy for underlying malignancy. Once stabilized we will plan to pursue bone marrow biopsy and aspiration SPEP was negative for M-Tobias, Her Urine VERONICA does show a positive BJP Overall, concerning for underlying clonal plasma cell or lymphoproliferative disorder Oncology: Subj Interval history: Gardenia was intubated and in the ICU since early this morning. She decompensated after her splenectomy for a splenic hemorrhage, requiring mechanical ventilation. Gardenia is being maintained with Fentanyl, Precedex, epinephrine, and norepinephrine. There is now a concern for DIC. She has received 2 units pRBC's and 2 units of FFP. In discussion with her primary RN, she may also begin lilly for her worsening kidney function. Her is not at bedside at this time. No bleeding or oozing noted from IV site. Dressing to LUQ c/d/i. - Constitutional Exam: intubated. No response noted to voice/touch. No family at bedside at this time. - Respiratory Additional comments: mechanically ventilated - GI/Abdominal GI/Abdominal exam: Present: soft Additional comments: LUQ: dressing c/d/i. No signs of bleeding from surgical site noted. - Extremities Exam Extremities exam: Present: normal inspection - Neurological Exam Neurological exam: Present: altered (sedated) - Skin Skin exam: Present: dry, pallor Additional comments: no bleeding noted around IV insertion sites Oncology: Obj Data - Labs CBC & Chem 7: 08/18/18 12:35 08/18/18 12:35 Consult Discharge Plan - Plan Referrals: Julian Bhatt DO [Primary Care Provider] - Inpatient Charges Provider: Dr. Michelle Sloan <Edinson Sloan - Last Filed: 08/18/18 18:55> Date of Encounter: 08/18/18 Oncology: Obj Data - Labs CBC & Chem 7: 08/18/18 12:35 08/18/18 18:00 Inpatient Charges Follow up - Inpatient: [id number] - Attending Attestation I examined this patient and my medical decision-making was reviewed with the Advanced Practice Nurse. I agree with the documented findings, disposition and treatment plan as described except to the extent set forth below. Ms. Sy appears to have an underlying hematologic malignancy: either a myeloid neoplasm, lymphoproliferative or myeloproliferative disorder with abdominal adenopathy and splenomegaly. She has suffered a splenic rupture s/p splenectomy. She is critically ill and has indices c/w consumptive coagulopathy from acute hemorrage or DIC. Transfusion parameters have been made. Recommend q 6 hour CBC, coags, fibrinogen. Prognosis is very poor in light of underlying probable malignancy and multiorgan failure. If she further decompensates, would recommend palliative measures. She is DNR CCA.
[2018-08-18 14:09] LABS: Lymphocytes # 3.9 K/mcL (0.6-4.6); Neutrophils # 20.6 K/mcL (1.6-8.9)
[2018-08-18 14:11] LABS: Anisocytosis 1+ (Not Present); Platelet Estimate Decreased (Normal)
[2018-08-18 14:45] LABS: ABG Base Excess -5 mEq/L (-2 to 3); ABG HCO3 20 mEq/L (21-27); ABG Oxygen Saturation 100 % (95-98); ABG PCO2 37 mmHg (35-45); ABG PH 7.35 pH Units (7.32-7.45); ABG PO2 384 mmHg (85-104); ABG TCO2 21 mEq/L (20-26); Blood Gas Modality ASSIST CONTROL; Blood Gas PEEP 8 cm H2O; Blood Gas Respiration Rate 26; Blood Gas VT 440 cc
[2018-08-18] MEDS: CITRATE DEXTROSE CRRT SCH (15:32)
[2018-08-18] MEDS: Calcium Chloride 4,000 MG in 0.9 % Sodium Chloride 1,000 ML CRRT SCH (15:33)
[2018-08-18] MEDS: PrismaSATE BGK 4/2.5 5,000 ML CRRT SCH ×4 (15:34→21:34)
--- NOTE | 2018-08-18 16:56 | Palliative - Consult Note ---
Date of Encounter: 08/18/18 Time of Encounter: 13:30 - Assessment and Plan (1) Generalized pain Current Visit: Yes Status: Acute Assessment and plan: Fentanyl per ICU protocol, currently at 100mcg/hr. Monitor. (2) Anxiety Current Visit: No Status: Acute Assessment and plan: Patient on Precedex per ICU protocol, currently at 0.7/hr. Continue and monitor (3) Goals of care, counseling/discussion Current Visit: No Status: Acute Assessment and plan: Some of the family has left during my visit, but I did meet about 30 min with daughter Duyen. Patient has been at [facility] for a few weeks for rehab, but Duyen states was not doing well and extremely weak. Patient to [place], and there are 3 children, Duyen, Dustin, and Arnoldo. Arnoldo resides in [place]. Family has been well updated by the medical team, nephrology regarding current clinical status and the severity of her illness. Family understands that prognosis is likely poor and she may not survive. She has already been transitioned to DNRCC-Arrest. Palliative will continue to follow clinical course closely. (4) Acute kidney injury superimposed on CKD Current Visit: Yes Status: Acute (5) Encounter for palliative care Current Visit: Yes Status: Acute (6) Septic shock Current Visit: Yes Status: Acute (7) Splenic hemorrhage Current Visit: Yes Status: Acute Assessment and plan: S/p Splenectomy - surgery following. 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 Palliative-CN HPI - Data of Consult Requesting Physician: Zi Tobar Primary Care Provider: Julian Bhatt DO - Consult Narrative History of present illness: Ms. 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 She was admitted and started treatment for sepsis, MARISA and pneumonia. She had increasing abd pain and CT imaging demonstrated splenomegaly with several peripheral lesions suggesting areas of infarction, significant progression of retroperitoneal, pelvic and inguinal adenopathy, Small quantity of free pelvic fluid with dependent increased attenuation suggesting a hemorrhagic component. Oncology is following as well and patient is known to them from previous admission. Surgery was consulted and patient was taken to OR for Splenectomy....After surgery, patient was hypotensive, not responding to fluid resuscitation and hgb dropped to 6.8 Patient was also unable to maintain airway. She is noted to have hypoxic respiratory failure with acidosis. Patient was intubated. Central line was also placed. Patient was started on pressors. Her condition has not improved and she is still in septic shock, possibly DIC as well. Upon my visit, she is sedated on ventilator, appears critically ill but in no distress. Multiple family members are present. She has already had discussions with ICu team and ground crewman aircraft support today. Code status has been changed to DNRCC-A and Hilda will be initiated today. CC: Zi Tobar - Time Spent with Patient Time: Total time spent is greater than 50% in coordination of care (as documented) at patient's floor/unit and/or counseling patient: Past Med Surg Social Fam HX - Past Medical History Medical history: hyperlipidemia, hypertension, renal disease, thyroid disease Additional medical history: Gout Psychiatric history: no psych history - Past Surgical History Surgical History: no surgical history Additional surgical history: none - Social History Smoking Status: Former smoker Smokeless Tobacco Status: No Alcohol use: none Drug use: none - Family History Father Hx Family Cancer: Yes Medications and Allergies Allopurinol [Zyloprim 100 MG] 100 mg PO DAILY 07/27/18 [History] Acetaminophen [Tylenol] 650 mg PO Q6HR tablet 08/09/18 [Rx] Lisinopril [Zestril] 10 mg PO BID #0 08/09/18 [Rx] Ondansetron ODT [Zofran ODT] 4 mg SL Q6HR PRN tab.rapdis 08/09/18 [Rx] Famotidine [Pepcid] 20 mg PO BID 08/16/18 [History] Ipratropium/Albuterol Sulfate [Iprat-Albut 0.5-3(2.5) mg/3 ml] 3 ml IH QID 08/16/18 [History] Levothyroxine Sodium [Levo-T] 50 mcg PO QAM 08/16/18 [History] Lidocaine Patch [Lidoderm 5% patch] 1 patch TP DAILY 08/16/18 [History] Melatonin [Melatin] 1.5 mg PO HS PRN 08/16/18 [History] Metoprolol Tartrate [Lopressor] 25 mg PO BID 08/16/18 [History] Ondansetron HCl [Zofran] 4 mg PO TID 08/16/18 [History] Oxygen 2 l IH CONT 08/16/18 [History] Allergy/AdvReac Type Severity Reaction Status Date / Time No Known Allergies Allergy Verified 07/27/18 09:39 ROS unobtainable: due to endotracheal tube Palliative Care-Exam - Constitutional Vitals: Temp Pulse Resp BP Pulse Ox 98.5 F 105 26 118/65 97 08/18/18 13:10 08/18/18 16:00 08/18/18 16:00 08/18/18 16:00 08/18/18 16:00 General appearance: Present: no acute distress. Absent: febrile - Head Head Exam: Present: normal inspection, normocephalic - Respiratory Additional comments: Rales noted bilaterally. Remains on vent support. - Cardiovascular Cardiovascular exam: Present: +S1, +S2, tachycardia - GI/Abdominal Exam GI/Abdominal exam: Present: diminished bowel sounds, soft additional comments: Dressing to abd D/I - Extremities Exam Additional comments: 2-3+ edema bilaterally - Neurological Exam Neurological exam: Present: altered Additional comments: Sedated on vent - Skin Skin exam: Present: dry, pallor, warm Internal Medicine - CN: Reslt - Labs CBC & Chem 7: 08/18/18 12:35 08/18/18 12:35 Labs: Short CBC 08/18/18 08/18/18 08/18/18 Range/Units 01:10 04:10 12:35 WBC 31.8 H* 29.0 H 25.8 H (4.3-11.1) K/mcL Hgb 6.8 L D 6.4 L 8.7 L D (11.5-15.4) g/dL Hct 22.1 L 21.3 L 26.9 L (35.3-44.9) % Plt Count 76 L 75 L 56 L (140-400) K/mcL Neutrophils # 18.4 H 20.6 H (1.6-8.9) K/mcL BMP 08/18/18 08/18/18 08/18/18 01:00 04:10 12:35 Sodium 137 137 139 Potassium 4.6 4.9 3.6 D Chloride 112 H 112 H 104 Carbon Dioxide 15 L 11 L 17 L BUN 39 H 40 H 42 H Creatinine 3.03 H 3.05 H 3.14 H Glucose 113 H 92 272 H Calcium 7.2 L 7.4 L 7.4 L Cardiac Enzymes 08/18/18 Range/Units 07:10 Troponin I 0.03 (< 0.04) ng/mL Liver Function 08/18/18 08/18/18 Range/Units 12:35 12:35 Total Bilirubin 1.3 H 1.3 H (0.3-1.0) mg/dL Direct Bilirubin 0.7 H (0.0-0.2) mg/dL AST 14 14 (13-39) Units/L ALT 11 11 (7-52) Units/L Alkaline Phosphatase 91 92 (34-104) Units/L Albumin 2.4 L 2.4 L (3.5-5.7) g/dL - ABG Interpretation ABG results: ABG ABG pH 7.35 pH Units (7.32-7.45) D 08/18/18 14:39 ABG pCO2 37 mmHg (35-45) 08/18/18 14:39 ABG pO2 384 mmHg (85-104) H 08/18/18 14:39 ABG O2 Saturation 100 % (95-98) H 08/18/18 14:39 PT/INR, D-dimer PT 19.6 Seconds (9.4-12.1) H 08/18/18 12:35 - Impressions Impressions Guidance Ultrasound 08/18/18 00:00 IMPRESSION: Successful ultrasound guided non-tunneled temporary hemodialysis catheter placement. D/ / 08/18/2018 14:48:46 Roselia Sandhu MD / maxine Interpreting Provider: Roselia Sandhu MD Insertion Non-Tunneled Catheter 08/18/18 00:00 IMPRESSION: Successful ultrasound guided non-tunneled temporary hemodialysis catheter placement. D/ / 08/18/2018 14:48:46 Roselia Sandhu MD / maxine Interpreting Provider: Roselia Sandhu MD Chest X-Ray 08/18/18 04:06 IMPRESSION: Right IJ central venous catheter insertion with the tip overlying the mid SVC. Low lung volumes, worsened from the previous examination with increased bibasilar atelectasis and small pleural effusions. Otherwise similar chest. D/ / Quentin Ramos MD / Quentin Ramos MD Interpreting Provider: Quentin Ramos MD Chest X-Ray 08/18/18 05:02 IMPRESSION: 1. Right mainstem intubation. The tube should be withdrawn 2 cm. 2. The tip of the enteric tube is in the stomach or proximal duodenum. 3. Stable bilateral airspace disease. D/ / Vikas Avila MD / Vikas Avila MD Interpreting Provider: Vikas Avila MD Chest X-Ray 08/18/18 13:18 IMPRESSION: Right IJ catheter in adequate position. No postprocedure pneumothorax. D/ / Bari Keane MD / Bari Keane MD Interpreting Provider: Bari Keane MD Consult Discharge Plan - Plan Referrals: Julian Bhatt DO [Primary Care Provider] - Palliative Quality Palliative Quality: Screen for Code Status: Yes, Screen for Goals of Care: Yes, Screen for Pain: Yes, If Pain Regimen Started, Initiate Bowel Regimen: NA, Screen for Nausea/Vomitting: Yes Code Status: 08/16/18 13:37 Resuscitation Status: Active [RES] Routine Comment: Resuscitation Status: Full Code 08/18/18 09:29 CODE [Resuscitation Status: Active] [RES] Routine Comment: Resuscitation Status: DNR-Comfort Care-Arrest
[2018-08-18 18:38] LABS: Albumin 2.2 g/dL (3.5-5.7); Albumin/Globulin Ratio 0.6 (1.1-2.2); Bilirubin,Total 1.3 mg/dL (0.3-1.0); Calcium 7.3 mg/dL (8.6-10.3); Globulin 3.5 g/dL (2.4-3.5); Total Protein 5.7 g/dL (6.4-8.9)
[2018-08-18 18:40] LABS: Basophils % 0.5 %; Hemoglobin 8.4 g/dL (11.5-15.4); Mean Platelet Volume 11.3 fL (9.4-12.4)
[2018-08-18 18:41] LABS: Basophils # 0.1 K/mcL (0.0-0.2); Eosinophils # 0.3 K/mcL (0.0-0.6); Immature Granulocytes % 16.3 % (0-4); Lymphocytes # 2.1 K/mcL (0.6-4.6); Mean Corpuscular HGB Conc 33.6 g/dL (31.6-35.5); Mean Corpuscular Hemoglobin 29.5 pg (28.0-33.3); Mean Corpuscular Volume 87.7 fL (83.0-100.0); Monocytes # 1.6 K/mcL (0.0-1.3); Monocytes % 6.1 %; Neutrophils # 18.2 K/mcL (1.6-8.9); Nucleated Red Blood Cells 1.4 /100 WBC (0); Red Blood Count 2.85 M/mcL (3.82-4.97); Red Cell Distribution Width 15.8 % (11.5-14.5); Segmented Neutrophils % 68.1 %
[2018-08-18 18:41] LABS: VBG Ionized Calcium 1.01 mmol/L (1.15-1.35)
[2018-08-18 18:51] LABS: INR 1.4; Prothrombin Time 16.2 Seconds (9.4-12.1)
[2018-08-18 19:10] LABS: Platelet Count 81 K/mcL (140-400)
[2018-08-18 21:24] LABS: Reactive Lymphocytes Present (Not Present)
[2018-08-18 22:42] LABS: Red Cell Distribution Width 15.5 % (11.5-14.5)
[2018-08-18 22:44] LABS: Basophils # 0.1 K/mcL (0.0-0.2); Basophils % 0.2 %; Eosinophils # 0.5 K/mcL (0.0-0.6); Eosinophils % 2.3 %; Hematocrit 21.3 % (35.3-44.9); Hemoglobin 7.4 g/dL (11.5-15.4); Immature Granulocytes % 14.5 % (0-4); Lymphocytes # 1.5 K/mcL (0.6-4.6); Lymphocytes % 6.5 %; Mean Corpuscular HGB Conc 34.7 g/dL (31.6-35.5); Mean Corpuscular Volume 86.2 fL (83.0-100.0); Mean Platelet Volume 10.7 fL (9.4-12.4); Monocytes # 1.4 K/mcL (0.0-1.3); Monocytes % 6.1 %; Neutrophils # 15.8 K/mcL (1.6-8.9); Nucleated Red Blood Cells 1.6 /100 WBC (0); Red Blood Count 2.47 M/mcL (3.82-4.97); Segmented Neutrophils % 70.4 %
[2018-08-18 22:51] LABS: INR 1.2; Prothrombin Time 13.4 Seconds (9.4-12.1)
[2018-08-18 22:58] LABS: Platelet Count 97 K/mcL (140-400)
[2018-08-18 22:59] LABS: ABG Ionized Calcium 1.03 mmol/L (1.15-1.35)
[2018-08-18 23:02] LABS: Albumin 2.5 g/dL (3.5-5.7); Albumin/Globulin Ratio 0.8 (1.1-2.2); Bilirubin,Total 1.7 mg/dL (0.3-1.0); Calcium 7.7 mg/dL (8.6-10.3); Globulin 3.3 g/dL (2.4-3.5); Total Protein 5.8 g/dL (6.4-8.9)
[2018-08-18 23:18] LABS: Reactive Lymphocytes Present (Not Present)
[2018-08-19] MEDS: Artificial Tears SOLN 15 ML BOTTLE BOTH EYES SCH ×4 (00:42→20:13)
[2018-08-19 01:05] LABS: VBG Ionized Calcium 1.05 mmol/L (1.15-1.35)
[2018-08-19] MEDS: FentaNYL (PF) 1,000 MCG in 0.9 % Sodium Chloride 80 ML IVC SCH ×3 (01:45→22:55)
[2018-08-19] MEDS: PrismaSATE BGK 4/2.5 5,000 ML CRRT SCH ×8 (01:54→20:04)
[2018-08-19] MEDS: CITRATE DEXTROSE CRRT SCH ×4 (02:00→22:05)
[2018-08-19] MEDS: Norepinephrine 8 MG in D5% in Water 250 ML IVC SCH (05:00)
[2018-08-19 05:02] LABS: VBG Ionized Calcium 1.18 mmol/L (1.15-1.35)
[2018-08-19 05:02] LABS: ABG Base Excess -2 mEq/L (-2 to 3); ABG HCO3 22 mEq/L (21-27); ABG Oxygen Saturation 99 % (95-98); ABG PCO2 35 mmHg (35-45); ABG PH 7.42 pH Units (7.32-7.45); ABG PO2 157 mmHg (85-104); ABG TCO2 23 mEq/L (20-26); Blood Gas Modality ASSIST CONTROL; Blood Gas PEEP 8 cm H2O; Blood Gas Respiration Rate 26; Blood Gas VT 440 cc
[2018-08-19] MEDS: *HR* Heparin 5,000 UNIT/ML VIAL SQ SCH ×2 (05:15→20:17)
[2018-08-19 05:28] LABS: Hematocrit 22.3 % (35.3-44.9); Hemoglobin 7.7 g/dL (11.5-15.4); Mean Corpuscular HGB Conc 34.5 g/dL (31.6-35.5); Mean Corpuscular Hemoglobin 29.4 pg (28.0-33.3); Mean Corpuscular Volume 85.1 fL (83.0-100.0); Mean Platelet Volume 10.3 fL (9.4-12.4); Red Blood Count 2.62 M/mcL (3.82-4.97); Red Cell Distribution Width 15.5 % (11.5-14.5)
[2018-08-19 05:30] LABS: Albumin 2.4 g/dL (3.5-5.7); Magnesium 1.6 mg/dL (1.6-2.6); Phosphorous 1.9 mg/dL (2.7-4.5)
[2018-08-19 05:31] LABS: Calcium 7.9 mg/dL (8.6-10.3); Potassium 3.2 mEq/L (3.5-5.1)
[2018-08-19 06:08] LABS: Platelet Count 82 K/mcL (140-400)
[2018-08-19] MEDS ORDERED: 0.9 % Sodium Chloride Mini Bag 100 ML ONE (06:12)
[2018-08-19] MEDS: Ipratropium/Albuterol Neb 3 ML IH SCH ×4 (07:36→23:15)
[2018-08-19] MEDS ORDERED: Phenylephrine 10 MG in D5% in Water 250 ML IVC SCH (08:15)
--- NOTE | 2018-08-19 08:48 | Nephrology Progress Note ---
Date of Encounter: 08/19/18 Time of Encounter: 09:00 - Assessment and Plan (1) MARISA (acute kidney injury) Current Visit: Yes Status: Acute Severe MARISA requiring continuous renal replacement therapy. The current modality is CVVHDF, which has provided excellent clearance of her SCr (which is lower most likely from Hilda and not yet from renal recovery). Her effluen dose is 27, using a dialysate and replacement fluid 1000 mL/hr respectively, so will con tinue with these flows. She does not need faster flows of clearance at this time, and in fact I will have to replace Phos and K+. Continue the citrate regional anticoagulation as tolerated, and I recommend increasing the blood flow rate from 100 to 150, which ideally will help extend the Hilda filter half-life. Monitoring platelets and LFTs, and iCa plus ACT. To help improve her hypervolemic volume status, I recommend uptitrating fluid removal to Net + 25-50 mL/hr, only as tolerated by hemodynamics such as blood pressure and heart rate. She remains high risk, very complex, and has required significant critical care time including coordination of care with the ICU, exam, titration of Hilda orders, documentation, and complex E/M and MDM. Will continue to closely follow with you (2) CKD (chronic kidney disease), stage III Current Visit: Yes Status: Acute (3) Hypophosphatemia Current Visit: Yes Status: Acute (4) Hypokalemia Current Visit: Yes Status: Acute (5) Lactic acid acidosis Current Visit: Yes Status: Acute Subjective Principal diagnosis: MARISA Interval history: The patient was seen and examined earlier this morning in the ICU. She tolerated Hilda overnight, according to the ICU nurse, and the Hilda filter was replaced once. The fluid removal was ramped up as ordered to approximately net. The patient is intubated and sedated, thus limiting further subjective history. Objective - Vital Signs Vital signs: Vital Signs Temp Pulse Resp BP Pulse Ox 08/19/18 08:00 118 20 88/53 95 08/19/18 07:54 20 99 08/19/18 01:11 26 109/71 100 08/19/18 01:00 118 26 111/72 100 08/19/18 00:00 101 26 88/59 100 08/18/18 23:36 26 98/57 100 08/18/18 23:00 101 26 113/65 100 08/18/18 22:00 74 26 117/59 100 08/18/18 21:32 26 134/67 100 08/18/18 21:00 80 26 111/59 100 08/18/18 20:40 26 127/66 100 08/18/18 20:00 78 26 140/70 100 08/18/18 19:53 97.4 F L 83 26 139/70 100 08/18/18 19:36 97.4 F L 85 26 146/73 100 08/18/18 19:21 97.4 F L 82 26 158/77 100 08/18/18 19:00 78 26 154/74 100 08/18/18 18:52 97 F L 94 26 110/57 100 08/18/18 18:45 97.1 F L 90 26 124/69 100 08/18/18 18:10 97.6 F 89 26 134/67 100 08/18/18 18:00 92 26 134/67 100 08/18/18 17:55 98.3 F 98 26 112/59 99 08/18/18 17:54 26 87/75 99 08/18/18 17:00 103 26 94/51 99 08/18/18 16:59 26 104/58 97 08/18/18 16:00 97.5 F L 105 118/65 97 08/18/18 15:00 103 121/62 98 08/18/18 14:00 106 26 124/63 98 08/18/18 13:10 98.5 F 103 26 127/72 98 08/18/18 13:00 104 26 120/65 98 08/18/18 12:55 98.5 F 104 26 133/63 98 08/18/18 12:16 98.5 F 102 26 146/71 99 08/18/18 12:00 102 146/71 99 08/18/18 11:57 98.5 F 100 26 143/69 98 08/18/18 11:43 26 129/56 98 08/18/18 11:21 98.4 F 99 26 137/65 98 08/18/18 11:00 98.5 F 92 26 150/67 98 08/18/18 10:35 98.2 F 99 26 111/53 98 08/18/18 10:00 98.1 F 97 26 138/65 99 08/18/18 09:34 102 26 110/58 99 08/18/18 09:27 26 120/63 100 08/18/18 09:00 98.2 F 101 26 107/60 99 08/18/18 08:54 98.2 F 97 26 111/53 98 Intake and Output 08/18/18 08/19/18 08/19/18 23:59 07:59 15:59 Intake Total 2158 / 9117 154 / 154 Output Total 135 / 245 217 / 217 Balance 2022 - / Intake: IV Fluids 828 / 4977 154 / 154 0.9 % Sodium Chloride 250 ML @ 200 / 200 0 mls/hr .ROUTE .STK-MED ONE Rx #:[id number] Calcium Chloride 4,000 MG In 0. 96 / 96 9 % Sodium Chloride 1,000 ML @ 40 mls/hr CRRT CONT [facility] Rx#: [id number] PrismaSATE BGK 4/2.5 5,000 ML @ 0 / 0 1000 mls/hr CRRT CONT [facility] Rx#: [id number] PRECEDEX Premix 400 mcg In 100 100 / 200 ml @ 0.2 MCG/KG/HR 4.09 mls/hr IVC .Q24H [facility] Rx#:[id number] FentaNYL (PF) 1,000 MCG In 0.9 46 / 146 54 / 54 % Sodium Chloride 80 ML @ 50 MCG/HR 5 mls/hr IVC CONT [facility] Rx #:[id number] Levophed 8 MG In Dextrose 5% 85 / 173 250 ML @ 5 MCG/MIN 9.68 mls/hr IVC CONT [facility] Rx#:[id number] AquaMephyton 10 MG In 0.9 % 51 / 51 Sodium Chloride 50 ML @ 100 mls /hr IVPB ONCE [facility] Rx#: [id number] Zosyn 3.375 GM In 0.9 % Sodium 100 / 100 Chloride (Mini-Bag +) 100 ML @ 25 mls/hr IVPB BID [facility] Rx#: [id number] Vancocin 1,250 MG In 0.9 % 250 / 250 Sodium Chloride 250 ML @ 166.67 mls/hr IVPB ONCE ONE Rx#: [id number] Blood Product 1330 / 2880 Cryoprecipitate Pooled Unit 100 / 100 [id number] Plasma Unit [id number] 300 / 300 Plasma Unit [id number] 430 / 430 Platelet Pheresis Lp Irr 2nd 500 / 500 Unit [id number] Output: Hilda 135 / 245 217 / 217 Catheter 0 / 0 0 / 0 Gastric Drainage 0 / 0 0 / 0 Other: Weight 81.8 kg 81.8 kg 81.8 kg Blood Glucose* 126 Fluid Removed by Prismaflex 63 107 70 Patient Weight 08/19/18 23:59 Weight 81.8 kg - General Appearance General appearance: Present: sedated on ventilator, intubated, fatigue, frail EENT: Present: mucous membranes moist Neck: Present: no JVD Respiratory: Present: course breath sounds Cardiology: Present: edema, normal S1, normal S2 Dialysis Vascular Access: Venous Catheter (Right IJ temporary HD catheter) Gastrointestinal: Present: normoactive bowel sounds, no guarding Additional Comments: limited neuro exam d/t intubation/sedation Additional Comments: limited d/t intubation / sedation - Lab 08/19/18 09:22 08/19/18 09:22 Most recent lab results ABG pH 7.42 pH Units (7.32-7.45) 08/19/18 04:51 ABG pCO2 35 mmHg (35-45) 08/19/18 04:51 ABG pO2 157 mmHg (85-104) H 08/19/18 04:51 ABG HCO3 22 mEq/L (21-27) 08/19/18 04:51 ABG O2 Saturation 99 % (95-98) H 08/19/18 04:51 Calcium 7.9 mg/dL (8.6-10.3) L 08/19/18 03:25 Phosphorus 1.9 mg/dL (2.7-4.5) L 08/19/18 03:25 Magnesium 1.6 mg/dL (1.6-2.6) 08/19/18 03:25 Consult Discharge Plan - Plan Referrals: Julian Bhatt DO [Primary Care Provider] -
[2018-08-19] MEDS ORDERED: Vancomycin 1 EACH in EMPTY BAG 1 EACH IVPB SCH (09:00)
[2018-08-19] MEDS: Levothyroxine Sodium 100 MCG VIAL IVP SCH (09:17)
[2018-08-19] MEDS: Chlorhexidine Rinse 15 ML MOUTHWASH MM SCH ×2 (09:17→20:53)
[2018-08-19] MEDS: Pantoprazole 40 MG VIAL IVP SCH (09:18)
[2018-08-19] MEDS: Piperacillin/Tazobactam 3.375 GM in 0.9 % Sodium Chloride Mini Bag 100 ML IVPB SCH ×2 (09:18→20:18)
[2018-08-19 09:55] LABS: Nucleated Red Blood Cells 2.6 /100 WBC (0)
[2018-08-19 09:57] LABS: Hematocrit 23.7 % (35.3-44.9); Immature Platelets 9.8 % (1.1-6.1); Mean Corpuscular HGB Conc 33.8 g/dL (31.6-35.5); Mean Corpuscular Hemoglobin 29.7 pg (28.0-33.3); Mean Corpuscular Volume 88.1 fL (83.0-100.0); Mean Platelet Volume 10.7 fL (9.4-12.4); Red Blood Count 2.69 M/mcL (3.82-4.97); Red Cell Distribution Width 15.7 % (11.5-14.5)
--- NOTE | 2018-08-19 10:05 | AcuteCareSurgery Progress Note ---
<Anahy Luna - Last Filed: 08/19/18 10:53> Date of Encounter: 08/19/18 Time of Encounter: 10:05 - Assessment and Plan (1) Splenic hemorrhage Current Visit: Yes Status: Acute This is an 87-year-old female with medical history significant for hypertension, dyslipidemia, kidney disease who initially presented with shortness of breath from her long term. - Further evaluation showed concern for possible lymphoma upon reviewing finding on CT showing retroperitoneal, pelvic, inguinal lymphadenopathy - CT additionally showed splenomegaly with several lesions suggesting areas of infarction, with areas of free pelvic fluid suggesting possible splenic hemorrhage. 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 Hemoglobin = 6.8. Patient was also unable to maintain airway. She is noted to have hypoxic respiratory failure with acidosis. Patient was intubated. Central line was also placed. Patient was started on pressors. - Remains intubated on mechanical ventilation and remains on pressors for blood pressure support. 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 She remains critically ill in the ICU at this time. - Continue ventilator management and pressors per ICU team; wean pressors as tolerated; monitor for worsening hypotension or signs of acute bleed - Continue to monitor hemoglobin and hematocrit - Continue IV antibiotics - No further surgical management necessary at this time. Surgery will continue to monitor - Continue medical management per primary team (2) Sepsis Current Visit: Yes Status: Acute Plan as above Qualifiers: Sepsis type: sepsis due to unspecified organism Qualified Code(s): A41.9 - Sepsis, unspecified organism Subjective Patient reports: afebrile Narrative: Patient seen and examined at bedside this morning. 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 She remains critically ill. Patient remains intubated on mechanical ventilation. Blood pressure is being maintained with pressors. Hb/Hct = 8.0/23.7 this morning. Patient has thus far received 2 units packed red blood cells, 4 units plasma, 1 units platelets, 2 units polled cryoprecipitate. She has yet to make urine. Currently on renal replacement therapy. Vitals remained hemodynamically stable with interventions in place. She is currently being managed by nephrology, oncology, palliative care, surgery. Primary management is via ICU team. Objective Vital Signs - Last 8 Hours Pulse Resp BP Pulse Ox 08/19/18 09:10 20 98 08/19/18 09:00 128 20 89/58 97 08/19/18 08:00 118 20 88/53 95 08/19/18 07:54 20 99 Intake and Output 08/18/18 08/19/18 08/19/18 23:59 07:59 15:59 Intake Total 2158 / 9117 154 / 154 Output Total 135 / 245 217 / 217 0 / 217 Balance 2022 -63 / -63 0 / -63 Intake: IV Fluids 828 / 4977 154 / 154 0.9 % Sodium Chloride 250 ML @ 200 / 200 0 mls/hr .ROUTE .STK-MED ONE Rx #:[id number] Calcium Chloride 4,000 MG In 0. 96 / 96 9 % Sodium Chloride 1,000 ML @ 40 mls/hr CRRT CONT [facility] Rx#: [id number] PrismaSATE BGK 4/2.5 5,000 ML @ 0 / 0 1000 mls/hr CRRT CONT [facility] Rx#: [id number] PRECEDEX Premix 400 mcg In 100 100 / 200 ml @ 0.2 MCG/KG/HR 4.09 mls/hr IVC .Q24H [facility] Rx#:[id number] FentaNYL (PF) 1,000 MCG In 0.9 46 / 146 54 / 54 % Sodium Chloride 80 ML @ 50 MCG/HR 5 mls/hr IVC CONT [facility] Rx #:[id number] Levophed 8 MG In Dextrose 5% 85 / 173 250 ML @ 5 MCG/MIN 9.68 mls/hr IVC CONT [facility] Rx#:[id number] AquaMephyton 10 MG In 0.9 % 51 / 51 Sodium Chloride 50 ML @ 100 mls /hr IVPB ONCE [facility] Rx#: [id number] Zosyn 3.375 GM In 0.9 % Sodium 100 / 100 Chloride (Mini-Bag +) 100 ML @ 25 mls/hr IVPB BID [facility] Rx#: [id number] Vancocin 1,250 MG In 0.9 % 250 / 250 Sodium Chloride 250 ML @ 166.67 mls/hr IVPB ONCE ONE Rx#: [id number] Blood Product 1330 / 2880 Cryoprecipitate Pooled Unit 100 / 100 [id number] Plasma Unit [id number] 300 / 300 Plasma Unit [id number] 430 / 430 Platelet Pheresis Lp Irr 2nd 500 / 500 Unit [id number] Output: Hilda 135 / 245 217 / 217 Catheter 0 / 0 0 / 0 0 / 0 Gastric Drainage 0 / 0 0 / 0 Other: Weight 81.8 kg 81.8 kg 81.8 kg Blood Glucose* 126 Fluid Removed by Prismaflex 63 107 116 Patient Weight 08/19/18 23:59 Weight 81.8 kg - General physical appearance severe distress, chronically ill, other (Critically ill patient in the ICU maintained on mechanical ventilation and blood pressure support) - ENT atraumatic, normocephalic - Neck Neck exam: trachea midline - Respiratory normal expansion, normal respiratory effort, clear to auscultation - Cardiovascular Cardiovascular exam: Present: RRR, regular rhythm, no murmurs/rubs/gallops - Abdomen Abdomen: Present: bowel sounds present (Hypoactive), soft. Absent: distended - Incision Incision: Present: clean and dry, intact - Psychiatric other (Unable to evaluate) - Labs 08/19/18 09:22 08/19/18 09:22 Diabetes panel 08/18/18 08/18/18 08/18/18 Range/Units 12:35 12:35 18:00 Sodium 139 138 (136-145) mEq/L Potassium 3.6 D 3.0 L (3.5-5.1) mEq/L Chloride 104 106 (98-107) mEq/L Carbon Dioxide 17 L 23 (23-29) mEq/L BUN 42 H 40 H (8-23) mg/dL Creatinine 3.14 H 2.71 H (0.60-1.20) mg/dL Glucose 272 H 148 H (70-105) mg/dL Calcium 7.4 L 7.3 L (8.6-10.3) mg/dL AST 14 14 14 (13-39) Units/L ALT 11 11 11 (7-52) Units/L Alkaline Phosphatase 91 92 83 (34-104) Units/L Albumin 2.4 L 2.4 L 2.2 L (3.5-5.7) g/dL 08/18/18 08/19/18 08/19/18 Range/Units 22:25 03:25 03:25 Sodium 139 139 (136-145) mEq/L Potassium 3.0 L 3.2 L (3.5-5.1) mEq/L Chloride 106 106 (98-107) mEq/L Carbon Dioxide 23 22 L (23-29) mEq/L BUN 35 H 29 H (8-23) mg/dL Creatinine 2.24 H 1.82 H (0.60-1.20) mg/dL Glucose 123 H 133 H (70-105) mg/dL Calcium 7.7 L 7.9 L (8.6-10.3) mg/dL AST 14 (13-39) Units/L ALT 12 (7-52) Units/L Alkaline Phosphatase 83 (34-104) Units/L Albumin 2.5 L 2.4 L (3.5-5.7) g/dL Calcium panel 08/18/18 08/18/18 08/18/18 Range/Units 12:35 12:35 18:00 Calcium 7.4 L 7.3 L (8.6-10.3) mg/dL Phosphorus (2.7-4.5) mg/dL Albumin 2.4 L 2.4 L 2.2 L (3.5-5.7) g/dL 08/18/18 08/19/18 08/19/18 Range/Units 22:25 03:25 03:25 Calcium 7.7 L 7.9 L (8.6-10.3) mg/dL Phosphorus 1.9 L (2.7-4.5) mg/dL Albumin 2.5 L 2.4 L (3.5-5.7) g/dL Pituitary panel 08/18/18 08/18/18 08/18/18 Range/Units 12:35 18:00 22:25 Sodium 139 138 139 (136-145) mEq/L Potassium 3.6 D 3.0 L 3.0 L (3.5-5.1) mEq/L Chloride 104 106 106 (98-107) mEq/L Carbon Dioxide 17 L 23 23 (23-29) mEq/L BUN 42 H 40 H 35 H (8-23) mg/dL Creatinine 3.14 H 2.71 H 2.24 H (0.60-1.20) mg/dL Glucose 272 H 148 H 123 H (70-105) mg/dL Calcium 7.4 L 7.3 L 7.7 L (8.6-10.3) mg/dL 08/19/18 Range/Units 03:25 Sodium 139 (136-145) mEq/L Potassium 3.2 L (3.5-5.1) mEq/L Chloride 106 (98-107) mEq/L Carbon Dioxide 22 L (23-29) mEq/L BUN 29 H (8-23) mg/dL Creatinine 1.82 H (0.60-1.20) mg/dL Glucose 133 H (70-105) mg/dL Calcium 7.9 L (8.6-10.3) mg/dL Adrenal panel 08/18/18 08/18/18 08/18/18 Range/Units 12:35 12:35 18:00 Sodium 139 138 (136-145) mEq/L Potassium 3.6 D 3.0 L (3.5-5.1) mEq/L Chloride 104 106 (98-107) mEq/L Carbon Dioxide 17 L 23 (23-29) mEq/L BUN 42 H 40 H (8-23) mg/dL Creatinine 3.14 H 2.71 H (0.60-1.20) mg/dL Glucose 272 H 148 H (70-105) mg/dL Calcium 7.4 L 7.3 L (8.6-10.3) mg/dL Total Bilirubin 1.3 H 1.3 H 1.3 H (0.3-1.0) mg/dL AST 14 14 14 (13-39) Units/L ALT 11 11 11 (7-52) Units/L Alkaline Phosphatase 91 92 83 (34-104) Units/L Albumin 2.4 L 2.4 L 2.2 L (3.5-5.7) g/dL 08/18/18 08/19/18 08/19/18 Range/Units 22:25 03:25 03:25 Sodium 139 139 (136-145) mEq/L Potassium 3.0 L 3.2 L (3.5-5.1) mEq/L Chloride 106 106 (98-107) mEq/L Carbon Dioxide 23 22 L (23-29) mEq/L BUN 35 H 29 H (8-23) mg/dL Creatinine 2.24 H 1.82 H (0.60-1.20) mg/dL Glucose 123 H 133 H (70-105) mg/dL Calcium 7.7 L 7.9 L (8.6-10.3) mg/dL Total Bilirubin 1.7 H (0.3-1.0) mg/dL AST 14 (13-39) Units/L ALT 12 (7-52) Units/L Alkaline Phosphatase 83 (34-104) Units/L Albumin 2.5 L 2.4 L (3.5-5.7) g/dL Consult Discharge Plan - Plan Referrals: Julian Bhatt DO [Primary Care Provider] - <Alfredo Thompson - Last Filed: 08/19/18 11:21> Date of Encounter: 08/19/18 Objective Vital Signs - Last 8 Hours Pulse Resp BP Pulse Ox 08/19/18 11:07 21 98 08/19/18 10:00 119 20 83/57 93 08/19/18 09:10 20 98 08/19/18 09:00 128 20 89/58 97 08/19/18 08:00 118 20 88/53 95 08/19/18 07:54 20 99 Intake and Output 08/18/18 08/19/18 08/19/18 23:59 07:59 15:59 Intake Total 2158 / 9117 154 / 1098 944 / 1098 Output Total 135 / 245 217 / 217 0 / 217 Balance 2022 / 8871 - / 944 / 881 Intake: IV Fluids 828 / 4977 154 / 1098 944 / 1098 0.9 % Sodium Chloride 250 ML @ 200 / 200 0 mls/hr .ROUTE .STK-MED ONE Rx #:[id number] Calcium Chloride 4,000 MG In 0. 96 / 96 944 / 944 9 % Sodium Chloride 1,000 ML @ 40 mls/hr CRRT CONT [facility] Rx#: [id number] PrismaSATE BGK 4/2.5 5,000 ML @ 0 / 0 1000 mls/hr CRRT CONT [facility] Rx#: [id number] PRECEDEX Premix 400 mcg In 100 100 / 200 ml @ 0.2 MCG/KG/HR 4.09 mls/hr IVC .Q24H [facility] Rx#:[id number] FentaNYL (PF) 1,000 MCG In 0.9 46 / 146 54 / 54 % Sodium Chloride 80 ML @ 50 MCG/HR 5 mls/hr IVC CONT [facility] Rx #:[id number] Levophed 8 MG In Dextrose 5% 85 / 173 250 ML @ 5 MCG/MIN 9.68 mls/hr IVC CONT [facility] Rx#:[id number] AquaMephyton 10 MG In 0.9 % 51 / 51 Sodium Chloride 50 ML @ 100 mls /hr IVPB ONCE [facility] Rx#: [id number] Zosyn 3.375 GM In 0.9 % Sodium 100 / 100 Chloride (Mini-Bag +) 100 ML @ 25 mls/hr IVPB BID [facility] Rx#: [id number] Vancocin 1,250 MG In 0.9 % 250 / 250 Sodium Chloride 250 ML @ 166.67 mls/hr IVPB ONCE ONE Rx#: [id number] Blood Product 1330 / 2880 Cryoprecipitate Pooled Unit 100 / 100 [id number] Plasma Unit [id number] 300 / 300 Plasma Unit [id number] 430 / 430 Platelet Pheresis Lp Irr 2nd 500 / 500 Unit [id number] Output: Hilda 135 / 245 217 / 217 Catheter 0 / 0 0 / 0 0 / 0 Gastric Drainage 0 / 0 0 / 0 Other: Weight 81.8 kg 81.8 kg 81.8 kg Blood Glucose* 126 Fluid Removed by Prismaflex 63 107 102 Patient Weight 08/19/18 23:59 Weight 81.8 kg - Labs 08/19/18 09:22 08/19/18 09:22 Diabetes panel 08/18/18 08/18/18 08/18/18 Range/Units 12:35 12:35 18:00 Sodium 139 138 (136-145) mEq/L Potassium 3.6 D 3.0 L (3.5-5.1) mEq/L Chloride 104 106 (98-107) mEq/L Carbon Dioxide 17 L 23 (23-29) mEq/L BUN 42 H 40 H (8-23) mg/dL Creatinine 3.14 H 2.71 H (0.60-1.20) mg/dL Glucose 272 H 148 H (70-105) mg/dL Calcium 7.4 L 7.3 L (8.6-10.3) mg/dL AST 14 14 14 (13-39) Units/L ALT 11 11 11 (7-52) Units/L Alkaline Phosphatase 91 92 83 (34-104) Units/L Albumin 2.4 L 2.4 L 2.2 L (3.5-5.7) g/dL 08/18/18 08/19/18 08/19/18 Range/Units 22:25 03:25 03:25 Sodium 139 139 (136-145) mEq/L Potassium 3.0 L 3.2 L (3.5-5.1) mEq/L Chloride 106 106 (98-107) mEq/L Carbon Dioxide 23 22 L (23-29) mEq/L BUN 35 H 29 H (8-23) mg/dL Creatinine 2.24 H 1.82 H (0.60-1.20) mg/dL Glucose 123 H 133 H (70-105) mg/dL Calcium 7.7 L 7.9 L (8.6-10.3) mg/dL AST 14 (13-39) Units/L ALT 12 (7-52) Units/L Alkaline Phosphatase 83 (34-104) Units/L Albumin 2.5 L 2.4 L (3.5-5.7) g/dL 08/19/18 Range/Units 09:22 Sodium 139 (136-145) mEq/L Potassium 3.3 L (3.5-5.1) mEq/L Chloride 105 (98-107) mEq/L Carbon Dioxide 24 (23-29) mEq/L BUN 23 (8-23) mg/dL Creatinine 1.59 H (0.60-1.20) mg/dL Glucose 142 H (70-105) mg/dL Calcium 8.4 L (8.6-10.3) mg/dL AST (13-39) Units/L ALT (7-52) Units/L Alkaline Phosphatase (34-104) Units/L Albumin (3.5-5.7) g/dL Calcium panel 08/18/18 08/18/18 08/18/18 Range/Units 12:35 12:35 18:00 Calcium 7.4 L 7.3 L (8.6-10.3) mg/dL Phosphorus (2.7-4.5) mg/dL Albumin 2.4 L 2.4 L 2.2 L (3.5-5.7) g/dL 08/18/18 08/19/18 08/19/18 Range/Units 22:25 03:25 03:25 Calcium 7.7 L 7.9 L (8.6-10.3) mg/dL Phosphorus 1.9 L (2.7-4.5) mg/dL Albumin 2.5 L 2.4 L (3.5-5.7) g/dL 08/19/18 Range/Units 09:22 Calcium 8.4 L (8.6-10.3) mg/dL Phosphorus (2.7-4.5) mg/dL Albumin (3.5-5.7) g/dL Pituitary panel 08/18/18 08/18/18 08/18/18 Range/Units 12:35 18:00 22:25 Sodium 139 138 139 (136-145) mEq/L Potassium 3.6 D 3.0 L 3.0 L (3.5-5.1) mEq/L Chloride 104 106 106 (98-107) mEq/L Carbon Dioxide 17 L 23 23 (23-29) mEq/L BUN 42 H 40 H 35 H (8-23) mg/dL Creatinine 3.14 H 2.71 H 2.24 H (0.60-1.20) mg/dL Glucose 272 H 148 H 123 H (70-105) mg/dL Calcium 7.4 L 7.3 L 7.7 L (8.6-10.3) mg/dL 08/19/18 08/19/18 Range/Units 03:25 09:22 Sodium 139 139 (136-145) mEq/L Potassium 3.2 L 3.3 L (3.5-5.1) mEq/L Chloride 106 105 (98-107) mEq/L Carbon Dioxide 22 L 24 (23-29) mEq/L BUN 29 H 23 (8-23) mg/dL Creatinine 1.82 H 1.59 H (0.60-1.20) mg/dL Glucose 133 H 142 H (70-105) mg/dL Calcium 7.9 L 8.4 L (8.6-10.3) mg/dL Adrenal panel 08/18/18 08/18/18 08/18/18 Range/Units 12:35 12:35 18:00 Sodium 139 138 (136-145) mEq/L Potassium 3.6 D 3.0 L (3.5-5.1) mEq/L Chloride 104 106 (98-107) mEq/L Carbon Dioxide 17 L 23 (23-29) mEq/L BUN 42 H 40 H (8-23) mg/dL Creatinine 3.14 H 2.71 H (0.60-1.20) mg/dL Glucose 272 H 148 H (70-105) mg/dL Calcium 7.4 L 7.3 L (8.6-10.3) mg/dL Total Bilirubin 1.3 H 1.3 H 1.3 H (0.3-1.0) mg/dL AST 14 14 14 (13-39) Units/L ALT 11 11 11 (7-52) Units/L Alkaline Phosphatase 91 92 83 (34-104) Units/L Albumin 2.4 L 2.4 L 2.2 L (3.5-5.7) g/dL 08/18/18 08/19/18 08/19/18 Range/Units 22:25 03:25 03:25 Sodium 139 139 (136-145) mEq/L Potassium 3.0 L 3.2 L (3.5-5.1) mEq/L Chloride 106 106 (98-107) mEq/L Carbon Dioxide 23 22 L (23-29) mEq/L BUN 35 H 29 H (8-23) mg/dL Creatinine 2.24 H 1.82 H (0.60-1.20) mg/dL Glucose 123 H 133 H (70-105) mg/dL Calcium 7.7 L 7.9 L (8.6-10.3) mg/dL Total Bilirubin 1.7 H (0.3-1.0) mg/dL AST 14 (13-39) Units/L ALT 12 (7-52) Units/L Alkaline Phosphatase 83 (34-104) Units/L Albumin 2.5 L 2.4 L (3.5-5.7) g/dL 08/19/18 Range/Units 09:22 Sodium 139 (136-145) mEq/L Potassium 3.3 L (3.5-5.1) mEq/L Chloride 105 (98-107) mEq/L Carbon Dioxide 24 (23-29) mEq/L BUN 23 (8-23) mg/dL Creatinine 1.59 H (0.60-1.20) mg/dL Glucose 142 H (70-105) mg/dL Calcium 8.4 L (8.6-10.3) mg/dL Total Bilirubin (0.3-1.0) mg/dL AST (13-39) Units/L ALT (7-52) Units/L Alkaline Phosphatase (34-104) Units/L Albumin (3.5-5.7) g/dL - Attending Attestation I examined this patient and my medical decision-making was reviewed with the Resident Physician. I agree with the documented findings, disposition and treatment plan as described except to the extent set forth below. The patient is seen and evaluated on morning rounds with resident on acute care surgery service. She remains critically ill. She still has not made any urine. She is on Hilda. She continues to require blood pressure support. There is no evidence of ongoing hemorrhage in the abdomen. Prognosis is poor. We will continue to follow closely. Alfredo Thompson MD FACS
[2018-08-19 10:07] LABS: VBG Ionized Calcium 1.03 mmol/L (1.15-1.35)
[2018-08-19 10:09] LABS: INR 1.2
[2018-08-19 10:10] LABS: Calcium 8.4 mg/dL (8.6-10.3); Potassium 3.3 mEq/L (3.5-5.1)
[2018-08-19] MEDS: Calcium Chloride 4,000 MG in 0.9 % Sodium Chloride 1,000 ML CRRT SCH (10:10)
--- NOTE | 2018-08-19 10:13 | Oncology Inp Progress Note ---
Date of Encounter: 08/19/18 Time of Encounter: 09:00 (1) MARISA (acute kidney injury) Current Visit: Yes Status: Acute Assessment and plan: She is on CVVHD. 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 At this juncture, pathology is pending. She is not treatment candidate at this time. Prognosis is very poor. Even if she recovers from this acute event, her age, debility and need for rehabilitation will preclude therapy. She will not recover in time for meaningful treatment. Would recommend against further escalation of care. She is DNR CCA. (3) DIC (disseminated intravascular coagulation) Current Visit: Yes Status: Acute Assessment and plan: Indices are improving. Would transfuse 2 units cryoprecipitate to fibrinogen level of 150 or greater. Maintain platelets 75,000 or above. Coagulation studies appear to have normalized. May decrease blood draws to every 8-12 hours. Oncology: Subj Interval history: No acute events overnight. She has been placed on CVVHD. She continues on epinephrine and norepinephrine. There is mild bruising about her right IJ catheter but no other bleeding. Some bruising noted about the arms. No petechia or purpura. No losing about her abdominal bandage. She has been weaned off sedatives but is not nonresponsive. - Constitutional General appearance: average body habitus - Head Head exam: Present: atraumatic, normal inspection, normocephalic - Eye Eye exam: Present: normal appearance, conjuntiva pink, sclera anicteric - ENT ENT exam: Present: mucous membranes moist, normal exam - Neck Neck exam: Present: normal inspection Additional comments: Right IJ catheter with mild bleeding. - Respiratory Respiratory exam: Present: rhonchi - Cardiovascular Cardiovascular exam: Present: tachycardia - GI/Abdominal GI/Abdominal exam: Present: hypoactive bowel sounds, soft Additional comments: Left abdominal bandage is clear - Extremities Exam Extremities exam: Present: normal inspection, pedal edema - Neurological Exam Additional comments: Sedated and unresponsive. Oncology: Obj Data - Labs CBC & Chem 7: 08/19/18 09:22 08/19/18 09:22 Consult Discharge Plan - Plan Referrals: Julian Bhatt DO [Primary Care Provider] - Inpatient Charges Provider: Dr. Michelle Sloan Follow up - Inpatient: [id number]
--- NOTE | 2018-08-19 10:14 | Pulmonology Progress Note ---
<Jhon Barrera - Last Filed: 08/19/18 11:52> Date of Encounter: 08/19/18 Time of Encounter: 10:14 Assessment and Plan (1) Septic shock Current Visit: Yes Status: Acute Patient is in septic shock requiring vasopressors. Patient had been on epinephrine and norepinephrine however her vasopressor carbon significantly decreased. The patient is in transition from norepinephrine to phenyl Afrin. Patient has required 2 units of packed red blood cells, 4 of FFP, platelets as well as cryoprecipitate. The patient septic shock seems to be improving. (2) Acute kidney injury superimposed on CKD Current Visit: Yes Status: Acute Patient does have a history of chronic kidney disease stage III according to the family. There is a superimposed acute kidney injury with a creatinine of 1.59. Nephrology has been consult. The patient will continue Hilda today. (3) Hypotension Current Visit: Yes Status: Acute Patient's hypotension has significantly improved. Patient's pressure requirement has significantly decreased. The patient was switched from Levophed to phenylephrine. Qualifiers: Hypotension type: other hypotension type Qualified Code(s): I95.89 - Other hypotension (4) DIC (disseminated intravascular coagulation) Current Visit: Yes Status: Acute Patient's DIC seems to be improving. Patient has a INR of 1.2, fibrinogen of 173, platelets of 83 and the patient's hemoglobin is 8.0. Parameters for treating the patient are per Hem/Onc recommendations. (5) Pneumonia Current Visit: Yes Status: Acute Due to concern for possible pneumonia the patient was started on Zosyn and vancomycin. Qualifiers: Pneumonia type: due to unspecified organism Laterality: unspecified laterality Lung location: unspecified part of lung Qualified Code(s): J18.9 - Pneumonia, unspecified organism (6) Splenic hemorrhage Current Visit: Yes Status: Acute CT scan was performed of the abdomen and pelvis shows splenomegaly with concern for possible splenic hemorrhage. 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 Acute care surgery is following the patient. (7) Anemia Current Visit: Yes Status: Acute Patient did have initial anemia of 6.4. The patient did require blood transfusion. Patient is received 2 units of packed red blood cells. The patient seemed well and is currently 8.0. We will continue to transfuse as appropriate with a goal of 8 or greater. Qualifiers: Anemia type: unspecified type Qualified Code(s): D64.9 - Anemia, unspecifi ed (8) Elevated INR Current Visit: Yes Status: Acute Patient did initially have an elevated INR of 2.4. She was not on Coumadin. Patient did receive 4 units of FFP. Patient's repeat INR today is 1.2. (9) Leukocytosis Current Visit: Yes Status: Acute Patient's leukocytosis has improved since yesterday. It is 23.3 today. This is likely secondary to the patient's septic shock and recent surgery. We will continue to monitor the patient's white blood cell count. Patient has Zosyn and vancomycin ordered. Qualifiers: Leukocytosis type: unspecified Qualified Code(s): D72.829 - Elevated white blood cell count, unspecified (10) Lactic acid acidosis Current Visit: Yes Status: Acute Patient does have a lactic acidosis with a lactic acid of 4.0. Her lactic acid had previously improved to 2.7 but has started to go back up. We will continue to monitor the patient's lactic acid level. (11) Hypokalemia Current Visit: Yes Status: Acute Patient's potassium was 3.3. Patient's potassium will be replaced. (12) DVT prophylaxis Current Visit: Yes Status: Acute Patient has SCDs ordered for DVT prophylaxis. Subjective Principal diagnosis: MARISA Interval history: There are no acute events overnight however the patient's pressor requirement had decreased. Patient's laboratory testing seems to be improving. The patient is intubated and sedated and is unable to provide any additional history at this time. Objective PUL Vital signs: Last Vital Signs Temp 97.4 F L 08/18/18 19:53 Pulse 128 08/19/18 09:00 Resp 20 08/19/18 09:10 BP 89/58 08/19/18 09:00 Pulse Ox 98 08/19/18 09:10 General appearance: other (Patient is intubated and sedated.) Eyes: nonicteric ENT: oropharynx dry Effort: mildly labored Auscultation: bilateral: other (Course breath sounds bilaterally) Gastrointestinal: hypoactive bowel sounds, soft, other (Surgical dressing in place without any bleeding. Dressing is dry.) Extremities: pink and warm, edema Musculoskeletal: no deformities other (Unable to assess due to the patient being intubated and sedated.) other (Unable to assess due to the patient being intubated and sedated.) Ventilator Settings Ventilator Settings: Ventilator Settings, Last 8 Hours Ventilator Tidal Volume 440 Setting Ventilator Tidal Volume 440 Setting Ventilator Tidal Volume 440 Setting Ventilator Tidal Volume 440 Setting Ventilator Respiratory Rate 20 Setting Ventilator Respiratory Rate 20 Setting Ventilator Respiratory Rate 20 Setting Ventilator Respiratory Rate 20 Setting Actual Respiratory Rate 20 Actual Respiratory Rate 20 Actual Respiratory Rate 20 Actual Respiratory Rate 20 Positive End Expiratory 8 Pressure Positive End Expiratory 8 Pressure Positive End Expiratory 8 Pressure Positive End Expiratory 8 Pressure Peak Inspiratory Airway 26 Pressure Peak Inspiratory Airway 26 Pressure Peak Inspiratory Airway 26 Pressure Peak Inspiratory Airway 26 Pressure Results - Laboratory Findings CBC and BMP: 08/19/18 09:22 08/19/18 09:22 ABG ABG pH 7.42 pH Units (7.32-7.45) 08/19/18 04:51 ABG pCO2 35 mmHg (35-45) 08/19/18 04:51 ABG pO2 157 mmHg (85-104) H 08/19/18 04:51 ABG O2 Saturation 99 % (95-98) H 08/19/18 04:51 PT/INR, D-dimer PT 14.0 Seconds (9.4-12.1) H 08/19/18 09:23 Abnormal lab findings: Abnormal lab results WBC 22.9 K/mcL (4.3-11.1) H 08/19/18 03:25 RBC 2.62 M/mcL (3.82-4.97) L 08/19/18 03:25 Hgb 7.7 g/dL (11.5-15.4) L 08/19/18 03:25 Hct 22.3 % (35.3-44.9) L 08/19/18 03:25 MCHC 30.0 g/dL (31.6-35.5) L 08/18/18 04:10 RDW 15.5 % (11.5-14.5) H 08/19/18 03:25 Plt Count 82 K/mcL (140-400) L 08/19/18 03:25 Immature Gran % 14.5 % (0-4) H 08/18/18 22:25 7.0 % (0-4) H 08/18/18 12:35 1.0 % (0) H 08/18/18 12:35 15.8 K/mcL (1.6-8.9) H 08/18/18 22:25 10.2 K/mcL (0.6-4.6) H 08/18/18 01:10 1.4 K/mcL (0.0-1.3) H 08/18/18 22:25 1.5 K/mcL (0.0-0.6) H 08/17/18 04:24 Nucleated RBCs/100 WBC 1.6 /100 WBC (0) H 08/18/18 22:25 Present (Not Present) A 08/18/18 22:25 Decreased (Normal) L 08/18/18 12:35 Immature Plt Fraction 8.0 % (1.1-6.1) H 08/18/18 22:25 1+ (Not Present) A 08/18/18 12:35 PT 14.0 Seconds (9.4-12.1) H 08/19/18 09:23 APTT 49.2 Seconds (26.0-36.0) H 08/18/18 01:10 139 mg/dL (169-393) L 08/18/18 18:00 ABG pH 7.12 pH Units (7.32-7.45) L* 08/18/18 09:08 ABG pCO2 31 mmHg (35-45) L 08/18/18 07:01 ABG pO2 157 mmHg (85-104) H 08/19/18 04:51 ABG HCO3 20 mEq/L (21-27) L 08/18/18 14:39 ABG Total CO2 12 mEq/L (20-26) L 08/18/18 09:08 ABG O2 Saturation 99 % (95-98) H 08/19/18 04:51 ABG Base Excess -5 mEq/L (-2 to 3) L 08/18/18 14:39 Sodium 134 mEq/L (136-145) L 08/17/18 04:24 Potassium 3.3 mEq/L (3.5-5.1) L 08/19/18 09:22 Chloride 112 mEq/L (98-107) H 08/18/18 04:10 Carbon Dioxide 22 mEq/L (23-29) L 08/19/18 03:25 BUN 29 mg/dL (8-23) H 08/19/18 03:25 1.59 mg/dL (0.60-1.20) H 08/19/18 09:22 Est GFR ( Amer) 37 (> 60) L 08/19/18 09:22 Est GFR (Non-Af Amer) 31 (> 60) L 08/19/18 09:22 Glucose 142 mg/dL (70-105) H 08/19/18 09:22 POC Glucose 126 mg/dL (70-99) H 08/18/18 18:32 308 (280-300) H 08/18/18 12:35 Lactic Acid 2.7 mmol/L (0.5-2.2) H 08/18/18 22:25 8.0 mg/dL (2.3-7.6) H 08/18/18 10:35 Calcium 8.4 mg/dL (8.6-10.3) L 08/19/18 09:22 Venous Ioniz Calcium 1.03 mmol/L (1.15-1.35) L 08/19/18 10:04 Phosphorus 1.9 mg/dL (2.7-4.5) L 08/19/18 03:25 1.7 mg/dL (0.3-1.0) H 08/18/18 22:25 0.7 mg/dL (0.0-0.2) H 08/18/18 12:35 AST 7 Units/L (13-39) L 08/16/18 11:55 ALT 5 Units/L (7-52) L 08/16/18 11:55 422 Units/L (140-271) H 08/18/18 10:35 5.8 g/dL (6.4-8.9) L 08/18/18 22:25 2.4 g/dL (3.5-5.7) L 08/19/18 03:25 3.6 g/dL (2.4-3.5) H 08/18/18 12:35 0.8 (1.1-2.2) L 08/18/18 22:25 1.03 mmol/L (1.15-1.35) L 08/18/18 22:53 Turbid (Clear) A 08/16/18 11:36 Ur Specific [place] > 1.030 (1.010-1.025) H 08/16/18 11:36 >=300 mg/dL (Neg-Trace) H 08/16/18 11:36 Trace mg/dL (Negative) H 08/16/18 11:36 Small (Negative) H 08/16/18 11:36 Ur Leukocyte Esterase Small (Negative) H 08/16/18 11:36 30-50 per hpf (0-3) H 08/16/18 11:36 Ur Squamous Epith Cells Many per lpf (None-Few) H 08/16/18 11:36 Present per hpf (None Seen) H 08/16/18 11:36 Ur Culture Indicated? NO. (NO) A 08/16/18 11:36 Antibody Screen POSITIVE A 08/18/18 18:25 Crossmatch See Detail 08/17/18 18:11 - Microbiology Findings Microbiology Findings: Microbiology, Last 48 Hours 08/16/18 11:31 Legionella Antigen - Final Urine,Clean Catch Streptococcus pneumoniae Antigen (M - Final - Clinical Findings Intake & Output: Intake & Output 08/18/18 08/19/18 08/19/18 23:59 07:59 15:59 Intake Total 2158 / 9117 154 / 154 Output Total 135 / 245 217 / 217 0 / 217 Balance 2022 / 8871 -63 / -63 0 / -63 Weight 81.8 kg 81.8 kg 81.8 kg Consult Discharge Plan - Plan Referrals: Julian Bhatt DO [Primary Care Provider] - <Doc Ornelas - Last Filed: 08/19/18 14:06> Date of Encounter: 08/19/18 Objective PUL Vital signs: Last Vital Signs Temp 97.4 F L 08/18/18 19:53 Pulse 119 08/19/18 12:00 Resp 20 08/19/18 12:00 BP 86/58 08/19/18 12:00 Pulse Ox 97 08/19/18 12:00 Ventilator Settings Ventilator Settings: Ventilator Settings, Last 8 Hours Ventilator Tidal Volume 440 Setting Ventilator Tidal Volume 440 Setting Ventilator Tidal Volume 440 Setting Ventilator Tidal Volume 440 Setting Ventilator Tidal Volume 440 Setting Ventilator Tidal Volume 440 Setting Ventilator Tidal Volume 440 Setting Ventilator Tidal Volume 440 Setting Ventilator Respiratory Rate 20 Setting Ventilator Respiratory Rate 20 Setting Ventilator Respiratory Rate 20 Setting Ventilator Respiratory Rate 20 Setting Ventilator Respiratory Rate 20 Setting Ventilator Respiratory Rate 20 Setting Ventilator Respiratory Rate 20 Setting Ventilator Respiratory Rate 20 Setting Actual Respiratory Rate 20 Actual Respiratory Rate 21 Actual Respiratory Rate 20 Actual Respiratory Rate 20 Actual Respiratory Rate 20 Actual Respiratory Rate 20 Actual Respiratory Rate 20 Actual Respiratory Rate 20 Positive End Expiratory 8 Pressure Positive End Expiratory 8 Pressure Positive End Expiratory 8 Pressure Positive End Expiratory 8 Pressure Positive End Expiratory 8 Pressure Positive End Expiratory 8 Pressure Positive End Expiratory 8 Pressure Positive End Expiratory 8 Pressure Peak Inspiratory Airway 25 Pressure Peak Inspiratory Airway 25 Pressure Peak Inspiratory Airway 26 Pressure Peak Inspiratory Airway 29 Pressure Peak Inspiratory Airway 26 Pressure Peak Inspiratory Airway 26 Pressure Peak Inspiratory Airway 26 Pressure Peak Inspiratory Airway 26 Pressure Results - Laboratory Findings CBC and BMP: 08/19/18 09:22 08/19/18 09:22 ABG ABG pH 7.42 pH Units (7.32-7.45) 08/19/18 04:51 ABG pCO2 35 mmHg (35-45) 08/19/18 04:51 ABG pO2 157 mmHg (85-104) H 08/19/18 04:51 ABG O2 Saturation 99 % (95-98) H 08/19/18 04:51 PT/INR, D-dimer PT 14.0 Seconds (9.4-12.1) H 08/19/18 09:23 Abnormal lab findings: Abnormal lab results WBC 23.3 K/mcL (4.3-11.1) H 08/19/18 09:22 RBC 2.69 M/mcL (3.82-4.97) L 08/19/18 09:22 Hgb 8.0 g/dL (11.5-15.4) L 08/19/18 09:22 Hct 23.7 % (35.3-44.9) L 08/19/18 09:22 MCHC 30.0 g/dL (31.6-35.5) L 08/18/18 04:10 RDW 15.7 % (11.5-14.5) H 08/19/18 09:22 Plt Count 83 K/mcL (140-400) L 08/19/18 09:22 Immature Gran % 14.5 % (0-4) H 08/18/18 22:25 8.0 % (0-4) H 08/19/18 09:22 4.0 % (0) H 08/19/18 09:22 21.2 K/mcL (1.6-8.9) H 08/19/18 09:22 10.2 K/mcL (0.6-4.6) H 08/18/18 01:10 1.4 K/mcL (0.0-1.3) H 08/18/18 22:25 1.5 K/mcL (0.0-0.6) H 08/17/18 04:24 Nucleated RBCs/100 WBC 2.6 /100 WBC (0) H 08/19/18 09:22 Present (Not Present) A 08/18/18 22:25 Decreased (Normal) L 08/19/18 09:22 Immature Plt Fraction 9.8 % (1.1-6.1) H 08/19/18 09:22 1+ (Not Present) A 08/18/18 12:35 PT 14.0 Seconds (9.4-12.1) H 08/19/18 09:23 APTT 49.2 Seconds (26.0-36.0) H 08/18/18 01:10 139 mg/dL (169-393) L 08/18/18 18:00 ABG pH 7.12 pH Units (7.32-7.45) L* 08/18/18 09:08 ABG pCO2 31 mmHg (35-45) L 08/18/18 07:01 ABG pO2 157 mmHg (85-104) H 08/19/18 04:51 ABG HCO3 20 mEq/L (21-27) L 08/18/18 14:39 ABG Total CO2 12 mEq/L (20-26) L 08/18/18 09:08 ABG O2 Saturation 99 % (95-98) H 08/19/18 04:51 ABG Base Excess -5 mEq/L (-2 to 3) L 08/18/18 14:39 Sodium 134 mEq/L (136-145) L 08/17/18 04:24 Potassium 3.3 mEq/L (3.5-5.1) L 08/19/18 09:22 Chloride 112 mEq/L (98-107) H 08/18/18 04:10 Carbon Dioxide 22 mEq/L (23-29) L 08/19/18 03:25 BUN 29 mg/dL (8-23) H 08/19/18 03:25 1.59 mg/dL (0.60-1.20) H 08/19/18 09:22 Est GFR ( Amer) 37 (> 60) L 08/19/18 09:22 Est GFR (Non-Af Amer) 31 (> 60) L 08/19/18 09:22 Glucose 142 mg/dL (70-105) H 08/19/18 09:22 POC Glucose 126 mg/dL (70-99) H 08/18/18 18:32 308 (280-300) H 08/18/18 12:35 Lactic Acid 4.0 mmol/L (0.5-2.2) H* 08/19/18 09:23 8.0 mg/dL (2.3-7.6) H 08/18/18 10:35 Calcium 8.4 mg/dL (8.6-10.3) L 08/19/18 09:22 Venous Ioniz Calcium 1.01 mmol/L (1.15-1.35) L 08/19/18 13:39 Phosphorus 1.9 mg/dL (2.7-4.5) L 08/19/18 03:25 1.7 mg/dL (0.3-1.0) H 08/18/18 22:25 0.7 mg/dL (0.0-0.2) H 08/18/18 12:35 AST 7 Units/L (13-39) L 08/16/18 11:55 ALT 5 Units/L (7-52) L 08/16/18 11:55 422 Units/L (140-271) H 08/18/18 10:35 5.8 g/dL (6.4-8.9) L 08/18/18 22:25 2.4 g/dL (3.5-5.7) L 08/19/18 03:25 3.6 g/dL (2.4-3.5) H 08/18/18 12:35 0.8 (1.1-2.2) L 08/18/18 22:25 1.03 mmol/L (1.15-1.35) L 08/18/18 22:53 Turbid (Clear) A 08/16/18 11:36 Ur Specific [place] > 1.030 (1.010-1.025) H 08/16/18 11:36 >=300 mg/dL (Neg-Trace) H 08/16/18 11:36 Trace mg/dL (Negative) H 08/16/18 11:36 Small (Negative) H 08/16/18 11:36 Ur Leukocyte Esterase Small (Negative) H 08/16/18 11:36 30-50 per hpf (0-3) H 08/16/18 11:36 Ur Squamous Epith Cells Many per lpf (None-Few) H 08/16/18 11:36 Present per hpf (None Seen) H 08/16/18 11:36 Ur Culture Indicated? NO. (NO) A 08/16/18 11:36 Antibody Screen POSITIVE A 08/18/18 18:25 Crossmatch See Detail 08/17/18 18:11 - Microbiology Findings Microbiology Findings: Microbiology, Last 48 Hours 08/16/18 11:31 Legionella Antigen - Final Urine,Clean Catch Streptococcus pneumoniae Antigen (M - Final - Clinical Findings Intake & Output: Intake & Output 08/18/18 08/19/18 08/19/18 23:59 07:59 15:59 Intake Total 2158 / 9117 154 / 1168 1014 / 1168 Output Total 135 / 245 217 / 217 0 / 217 Balance 2022 / 8871 -63 / 95 1014 / 951 Weight 81.8 kg 81.8 kg 81.8 kg - Attending Attestation I examined this patient and my medical decision-making was reviewed with the Resident Physician. I agree with the documented findings, disposition and treatment plan as described except to the extent set forth below. We independently had [id number] contact with the patient I spent of Critical Care time with this patient. It involved decision making of high complexity to assess, manipulate, and support vital organ system failure and/or to prevent further life threatening deterioration of the patient's condition. The time involved in the performance of separately reportable procedures was not counted toward critical care time. Patient seen and examined at bedside Labs, radiology, chart personally reviewed. Management was reviewed during multidisciplinary critical care rounds. [employer]: Remains obtunded even off sedation mild grimace to painful stimuli Pulm: Acute hypoxic hypercapnic respiratory failure on vent acceptable gas exchange today increasing tidal volume to accommodate for acidosis has been effective and now can start to back down on respiratory rate otherwise continue low tidal volume ventilatory strategy because she is at high risk for deve lopment of ARDS she is not a candidate for spontaneous breathing trial because of critical illness Cards: Dysuria shock with multiorgan system failure has been weaned down off vasopressor now to leave effect which we will transition of the (because of A. fib with RVR lactic acidosis is improving encouragingly GI: Largest given while on vent she is postop day 1 status post splenectomy appreciated GEN surgery evaluation Nutrition: Start trophic enteral nutrition per dietary recommendations Renal: AK I leading to need for hemodialysis remains and uric on CVVH appreciate nephrology evaluation metabolic acidosis is generally improving UOP Monitored, Cont to Trend sCr and monitor Electrolytes. 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 Lines: All lines examined without evidence of infection : Dispo: Monitor in ICU for critical illness CODE: DNAR I met again with Don (the patient's ) and mekhi 3 adult children still address goals of care explained that although indices appear to be improving overall picture is very grave and the patient the expected to make a meaningful recovery given advanced age debility and likely malignancy. Family to continue to talk about what in the patient's best interest palliative care also following we will continue current course of action but should situation deteriorate they are all in agreement that they would seek comfort measures at that time
[2018-08-19 10:19] LABS: Platelet Count 83 K/mcL (140-400)
[2018-08-19 10:26] LABS: Platelet Estimate Decreased (Normal)
[2018-08-19 10:28] LABS: Monocytes # 1.2 K/mcL (0.0-1.3); Neutrophils # 21.2 K/mcL (1.6-8.9)
[2018-08-19] MEDS: WATER IVC SCH (10:48)
[2018-08-19] MEDS: D5 IVC SCH (10:48)
[2018-08-19] MEDS: PHENYLEPHRINE IVC SCH (10:48)
[2018-08-19] MEDS ORDERED: Potassium Phosphate 44 MEQ in 0.9 % Sodium Chloride 250 ML IVPB ONE (11:15)
--- NOTE | 2018-08-19 11:48 | Event Note ---
Date of Encounter: 08/19/18 Time of Encounter: 11:35 Chart review completed. Vital signs stable. Patient remains intubated and on ventilator support at this time. LUX support required. Sedation has been turned off and patient not following commands. Family present at bedside. No needs identified at this time. Palliative care will continue to follow at a distance.
[2018-08-19] MEDS ORDERED: *HR* Heparin 5,000 UNIT/ML VIAL ONE (13:31)
[2018-08-19 13:42] LABS: VBG Ionized Calcium 1.01 mmol/L (1.15-1.35)
[2018-08-19] MEDS: Dexmedetomidine HCl 400 MCG/100 ML MLS IVC SCH ×3 (13:50→23:52)
[2018-08-19 16:32] LABS: Hemoglobin 7.7 g/dL (11.5-15.4); Mean Corpuscular HGB Conc 33.5 g/dL (31.6-35.5); Mean Corpuscular Hemoglobin 29.3 pg (28.0-33.3); Mean Corpuscular Volume 87.5 fL (83.0-100.0); Mean Platelet Volume 10.7 fL (9.4-12.4); Nucleated Red Blood Cells 4.1 /100 WBC (0); Red Blood Count 2.63 M/mcL (3.82-4.97); Red Cell Distribution Width 15.9 % (11.5-14.5)
[2018-08-19 16:42] LABS: INR 1.3; Prothrombin Time 14.3 Seconds (9.4-12.1)
[2018-08-19 16:46] LABS: Calcium 8.5 mg/dL (8.6-10.3); Potassium 3.7 mEq/L (3.5-5.1)
[2018-08-19 17:05] LABS: Platelet Count 63 K/mcL (140-400)
[2018-08-19 17:13] LABS: Eosinophils # 1.4 K/mcL (0.0-0.6); Large Platelets Present (Not Present); Lymphocytes # 2.9 K/mcL (0.6-4.6); Platelet Estimate Decreased (Normal); Toxic Granulation Present (Not Present)
[2018-08-19 17:14] LABS: Toxic Vacuolation Present (Not Present)
[2018-08-19 18:05] LABS: VBG Ionized Calcium 1.12 mmol/L (1.15-1.35)
[2018-08-19] MEDS: EPINEPHrine 5 MG in D5% in Water 250 ML IVC SCH (19:41)
[2018-08-20] MEDS: Artificial Tears SOLN 15 ML BOTTLE BOTH EYES SCH ×7 (00:26→23:21)
[2018-08-20 00:27] LABS: VBG Ionized Calcium 1.06 mmol/L (1.15-1.35)
[2018-08-20] MEDS: Calcium Chloride 4,000 MG in 0.9 % Sodium Chloride 1,000 ML CRRT SCH ×3 (00:28→23:15)
[2018-08-20] MEDS: PrismaSATE BGK 4/2.5 5,000 ML CRRT SCH ×10 (01:04→23:00)
[2018-08-20 01:21] LABS: BUN/Creatinine Ratio 14 (6-26); Blood Urea Nitrogen 15 mg/dL (8-23); Calcium 9.2 mg/dL (8.6-10.3); Carbon Dioxide 25 mEq/L (23-29); Chloride 108 mEq/L (98-107); Glucose 136 mg/dL (70-105); Osmolality,Calculated 287 (280-300); Potassium 3.5 mEq/L (3.5-5.1); Sodium 137 mEq/L (136-145); eGFR For Non-African Americans 50 (> 60)
[2018-08-20 01:33] LABS: INR 1.2
[2018-08-20] MEDS: CITRATE DEXTROSE CRRT SCH ×7 (01:37→23:20)
[2018-08-20] MEDS: Piperacillin/Tazobactam 3.375 GM in 0.9 % Sodium Chloride Mini Bag 100 ML IVPB SCH ×3 (03:33→18:12)
[2018-08-20 03:42] LABS: Hemoglobin 8.3 g/dL (11.5-15.4); Mean Platelet Volume 10.5 fL (9.4-12.4)
[2018-08-20 03:43] LABS: Hematocrit 24.1 % (35.3-44.9); Mean Corpuscular HGB Conc 34.4 g/dL (31.6-35.5); Mean Corpuscular Hemoglobin 29.2 pg (28.0-33.3); Mean Corpuscular Volume 84.9 fL (83.0-100.0); Platelet Count 143 K/mcL (140-400); Red Blood Count 2.84 M/mcL (3.82-4.97); Red Cell Distribution Width 15.4 % (11.5-14.5)
[2018-08-20 03:45] LABS: VBG Ionized Calcium 1.18 mmol/L (1.15-1.35)
[2018-08-20 03:56] LABS: INR 1.1; Prothrombin Time 12.8 Seconds (9.4-12.1)
[2018-08-20 04:01] LABS: BUN/Creatinine Ratio 14 (6-26); Blood Urea Nitrogen 14 mg/dL (8-23); Calcium 9.2 mg/dL (8.6-10.3); Carbon Dioxide 25 mEq/L (23-29); Chloride 106 mEq/L (98-107); Glucose 139 mg/dL (70-105); Osmolality,Calculated 293 (280-300); Potassium 3.5 mEq/L (3.5-5.1); Sodium 140 mEq/L (136-145); eGFR For Non-African Americans 51 (> 60)
[2018-08-20] MEDS: Dexmedetomidine HCl 400 MCG/100 ML MLS IVC SCH ×2 (04:46→16:55)
[2018-08-20] MEDS: EPINEPHrine 5 MG in D5% in Water 250 ML IVC SCH (04:54)
[2018-08-20] MEDS: *HR* Heparin 5,000 UNIT/ML VIAL SQ SCH ×2 (05:04→18:12)
[2018-08-20 05:26] LABS: ABG Base Excess 5 mEq/L (-2 to 3); ABG HCO3 29 mEq/L (21-27); ABG Oxygen Saturation 97 % (95-98); ABG PCO2 43 mmHg (35-45); ABG PH 7.44 pH Units (7.32-7.45); ABG PO2 92 mmHg (85-104); ABG TCO2 31 mEq/L (20-26); Blood Gas PEEP 8 cm H2O; Blood Gas Respiration Rate 20; Blood Gas VT 440 cc
[2018-08-20] MEDS: Ipratropium/Albuterol Neb 3 ML IH SCH ×4 (05:27→23:17)
[2018-08-20] MEDS: FentaNYL (PF) 1,000 MCG in 0.9 % Sodium Chloride 80 ML IVC SCH (07:00)
--- NOTE | 2018-08-20 07:18 | Nephrology Progress Note ---
Date of Encounter: 08/20/18 Time of Encounter: 07:35 - Assessment and Plan (1) MARISA (acute kidney injury) Current Visit: Yes Status: Acute CVVHDF has provided further clearance by lower the SCr. Tentatively planning to maintaining CRRT for volume status improvement with UF. I'm watching her UOP and BPs and when these start to improve, then may be able to hold Hilda soon. The Effluent dose is 29 today: continue prismasate and replacement fluid 1000 re spectively. She does not need faster flows of clearance at this time, and in fact I will have to replace Phos and K+. Continue the citrate regional anticoagulation as tolerated, and continue the BFR of 150, which ideally will help extend the Hilda filter half-life. Monitoring platelets and LFTs, and iCa plus ACT. To help improve her hypervolemic volume status, I recommend uptitrating fluid removal to Net + 75-100 mL/hr, only as tolerated by hemodynamics such as blood pressure and heart rate. She remains high risk, very complex E/M and MDM. Yesterday, I contributed about 37 min of CCT. Will continue to closely follow. Updated the ICU team. (2) CKD (chronic kidney disease), stage III Current Visit: Yes Status: Acute (3) Hypophosphatemia Current Visit: Yes Status: Acute (4) Hypokalemia Current Visit: Yes Status: Acute (5) Lactic acid acidosis Current Visit: Yes Status: Acute Subjective Principal diagnosis: MARISA Interval history: The patient was seen and examined in the ICU. Her TEST TECHNICIAN updated that the filter clotted twice since yesterday AM. She has been able to remove about Net+50mL/hr since 4pm yesterday. The pt remains intubated/sedated, thus further limiting subjective history from the pt. Objective - Vital Signs Vital signs: Vital Signs Temp Pulse Resp BP Pulse Ox 08/20/18 06:46 97.4 F L 95 20 115/65 100 08/20/18 06:00 97 22 134/72 100 08/20/18 05:28 20 100 08/20/18 05:00 90 20 130/69 100 08/20/18 04:00 96.7 F L 95 20 104/59 100 08/20/18 03:51 20 100 08/20/18 03:00 95 20 121/72 100 08/20/18 02:00 79 20 90/56 100 08/20/18 01:29 96.7 F L 78 20 117/65 100 08/20/18 01:23 20 100 08/20/18 01:00 72 20 146/75 100 08/20/18 00:05 84 08/20/18 00:00 83 20 98/56 99 08/19/18 23:31 79 20 125/63 97 08/19/18 23:16 77 20 126/64 97 08/19/18 23:13 74 20 130/66 98 08/19/18 23:00 69 20 143/70 99 08/19/18 22:44 69 20 142/70 99 08/19/18 22:27 97.1 F L 70 20 133/65 98 08/19/18 22:15 97.1 F L 77 20 92/53 100 08/19/18 22:00 97.0 F L 71 20 137/68 99 08/19/18 21:48 20 99 08/19/18 21:42 97.0 F L 69 20 132/67 99 08/19/18 21:30 97.4 F L 72 20 125/66 97 08/19/18 21:00 73 20 123/64 97 08/19/18 20:00 76 20 108/62 97 08/19/18 19:45 20 110/62 98 08/19/18 19:00 79 20 142/73 100 08/19/18 18:00 82 20 121/64 100 08/19/18 17:47 20 100 08/19/18 17:00 85 20 130/69 99 08/19/18 16:00 97.1 F L 87 20 94/55 100 08/19/18 15:37 20 99 08/19/18 14:00 133 20 80/53 95 08/19/18 13:00 124 21 92/60 96 08/19/18 12:00 119 20 86/58 97 08/19/18 11:07 21 98 08/19/18 11:00 118 20 111/63 98 08/19/18 10:00 119 20 83/57 93 08/19/18 09:10 20 98 08/19/18 09:00 128 20 89/58 97 08/19/18 08:00 118 20 88/53 95 08/19/18 07:54 20 99 Intake and Output 08/19/18 08/19/18 08/20/18 15:59 23:59 07:59 Intake Total 9249 / 07108 1751 / 59416 1829.5 / 1829.5 Output Total 0 1905 1255 / 1905 2005 Balance 9249 / 9536 496 / 9536 -176.5 / -176.5 Intake: IV Fluids 9249 / 30638 810 / 55541 1381.5 / 1381.5 Calcium Chloride 4,000 MG In 0. 1014 / 1014 970 / 970 9 % Sodium Chloride 1,000 ML @ 40 mls/hr CRRT CONT [facility] Rx#: [id number] PrismaSATE BGK 4/2.5 5,000 ML @ 8000 / 8000 0 / 8000 1000 mls/hr CRRT CONT [facility] Rx#: [id number] PRECEDEX Premix 400 mcg In 100 100 / 400 200 / 400 100 / 100 ml @ 0.2 MCG/KG/HR 4.09 mls/hr IVC .Q24H [facility] Rx#:[id number] EPINEPHrine 5 MG In Dextrose 5% 0 / 0 250 ML @ 2 MCG/MIN 6.12 mls/hr IVC CONT [facility] Rx#:[id number] FentaNYL (PF) 1,000 MCG In 0.9 35 / 254 100 / 254 100 / 100 % Sodium Chloride 80 ML @ 50 MCG/HR 5 mls/hr IVC CONT [facility] Rx #:[id number] Levophed 8 MG In Dextrose 5% 0 / 0 250 ML @ 5 MCG/MIN 9.68 mls/hr IVC CONT [facility] Rx#:[id number] Phenylephrine 75 MG In Dextrose 111.5 / 111.5 5% 250 ML @ 100 MCG/MIN 20.6 mls/hr IVC CONT [facility] Rx#: [id number] Zosyn 3.375 GM In 0.9 % Sodium 100 / 200 100 / 100 Chloride (Mini-Bag +) 100 ML @ 25 mls/hr IVPB Q8H [facility] Rx#: [id number] Potassium Phosphate 44 MEQ In 0 260 / 260 .9 % Sodium Chloride 250 ML @ 40 mls/hr IVPB ONCE ONE Rx#: [id number] Vancocin 1,000 MG In 0.9 % 250 / 250 Sodium Chloride 250 ML @ 167 mls/hr IVPB ONCE ONE Rx#: [id number] Oral 0 / 0 Tube Feeding 55 / 64 72 / 72 Blood Product 886 / 886 376 / 376 Cryoprecipitate Pooled Unit 170 / 170 [id number] Platelet Pheresis Lp Irr 1st 323 / 323 Unit [id number] Platelet Pheresis Lp Irr 2nd 393 / 393 Unit [id number] Rbcs Leuko Poor As-1 Unit 0 / 0 376 / 376 [id number] Free Water Intake Amount 0 / 0 0 / 0 Output: Hilda 1255 / 1905 2005 Catheter 0 / 0 0 / 0 0 / 0 Other: Weight 81.8 kg 81.8 kg 81.8 kg Blood Glucose* 140 Fluid Removed by Prismaflex [id number] Patient Weight 08/20/18 23:59 Weight 81.8 kg - General Appearance General appearance: Present: sedated on ventilator, intubated EENT: Present: ATNC, PERRL, mucous membranes moist Neck: Present: supple Respiratory: Present: clear Additional Comments: barrel chest Cardiology: Present: edema, regular rate, regular rhythm, normal S1, normal S2 Dialysis Vascular Access: Venous Catheter (Right IJ temporary HD catheter with exit site C/D/I.) Gastrointestinal: Present: normoactive bowel sounds, no tenderness, no guarding Integumentary: Present: ecchymotic Additional Comments: Intubated/sedated Musculoskeletal: Present: no cyanosis Additional Comments: Limited d/t her intubation/sedation - Lab 08/20/18 03:30 08/20/18 03:30 Most recent lab results 08/20/18 08/20/18 08/20/18 00:50 03:30 05:23 ABG pH 7.44 ABG pCO2 43 ABG pO2 92 ABG HCO3 29 H ABG O2 Saturation 97 Calcium 9.2 9.2 Consult Discharge Plan - Plan Referrals: Julian Bhatt DO [Primary Care Provider] -
--- NOTE | 2018-08-20 07:20 | AcuteCareSurgery Progress Note ---
<Anahy Luna - Last Filed: 08/20/18 10:01> Date of Encounter: 08/20/18 Time of Encounter: 07:20 - Assessment and Plan (1) Splenic hemorrhage Current Visit: Yes Status: Acute This is an 87-year-old female with medical history significant for hypertension, dyslipidemia, kidney disease who initially presented with shortness of breath from her care home. - Further evaluation showed concern for possible lymphoma upon reviewing finding on CT showing retroperitoneal, pelvic, inguinal lymphadenopathy - CT additionally showed splenomegaly with several lesions suggesting areas of infarction, with areas of free pelvic fluid suggesting possible splenic hemorrhage. 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 Hemoglobin = 6.8. Patient was also unable to maintain airway. She is noted to have hypoxic respiratory failure with acidosis. Patient was intubated. Central line was also placed. Patient was started on pressors. - Remains intubated on mechanical ventilation and remains on pressors for blood pressure support. 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 She remains critically ill in the ICU at this time. - Continue ventilator management and pressors per ICU team; wean pressors as tolerated; monitor for worsening hypotension or signs of acute bleed - Continue to monitor hemoglobin and hematocrit - Continue IV antibiotics - No further surgical management necessary at this time. Surgery will continue to monitor - Continue medical management per primary team (2) Sepsis Current Visit: Yes Status: Acute Plan as above Qualifiers: Sepsis type: sepsis due to unspecified organism Qualified Code(s): A41.9 - Sepsis, unspecified organism Subjective Patient reports: afebrile Narrative: Patient is seen and examined at bedside this morning. She remains critically ill in the ICU. She remains intubated on mechanical ventilation, requiring pressors for blood pressure support. She still does not have any urine output. Nephrology is following and patient currently on renal replacement therapy. Additionally, patient's hemoglobin today = 8.3 she is status post a total of 3 units packed red blood cells, 4 units of plasma, 3 units of platelets, 3 units of polled cryoprecipitate. No evidence of any acute bleeding. Patient continues to have absent/hypoactive bowel sounds. 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 Wound is clean dry and intact. Objective Vital Signs - Last 8 Hours Temp Pulse Resp BP Pulse Ox 08/20/18 06:46 97.4 F L 95 20 115/65 100 08/20/18 06:00 97 22 134/72 100 08/20/18 05:28 20 100 08/20/18 05:00 90 20 130/69 100 08/20/18 04:00 96.7 F L 95 20 104/59 100 08/20/18 03:51 20 100 08/20/18 03:00 95 20 121/72 100 08/20/18 02:00 79 20 90/56 100 08/20/18 01:29 96.7 F L 78 20 117/65 100 08/20/18 01:23 20 100 08/20/18 01:00 72 20 146/75 100 08/20/18 00:05 84 08/20/18 00:00 83 20 98/56 99 08/19/18 23:31 79 20 125/63 97 Intake and Output 08/19/18 08/19/18 08/20/18 15:59 23:59 07:59 Intake Total 9249 / 83661 1751 / 68954 1829.5 / 1829.5 Output Total 0 / 1905 1255 / 1905 2005 / 2005 Balance 9249 / 9536 496 / 9536 -176.5 / -176.5 Intake: IV Fluids 9249 / 68555 810 / 34313 1381.5 / 1381.5 Calcium Chloride 4,000 MG In 0. 1014 / 1014 970 / 970 9 % Sodium Chloride 1,000 ML @ 40 mls/hr CRRT CONT [facility] Rx#: [id number] PrismaSATE BGK 4/2.5 5,000 ML @ 8000 / 8000 0 / 8000 1000 mls/hr CRRT CONT [facility] Rx#: [id number] PRECEDEX Premix 400 mcg In 100 100 / 400 200 / 400 100 / 100 ml @ 0.2 MCG/KG/HR 4.09 mls/hr IVC .Q24H [facility] Rx#:[id number] EPINEPHrine 5 MG In Dextrose 5% 0 / 0 250 ML @ 2 MCG/MIN 6.12 mls/hr IVC CONT [facility] Rx#:[id number] FentaNYL (PF) 1,000 MCG In 0.9 35 / 254 100 / 254 100 / 100 % Sodium Chloride 80 ML @ 50 MCG/HR 5 mls/hr IVC CONT [facility] Rx #:[id number] Levophed 8 MG In Dextrose 5% 0 / 0 250 ML @ 5 MCG/MIN 9.68 mls/hr IVC CONT [facility] Rx#:[id number] Phenylephrine 75 MG In Dextrose 111.5 / 111.5 5% 250 ML @ 100 MCG/MIN 20.6 mls/hr IVC CONT [facility] Rx#: [id number] Zosyn 3.375 GM In 0.9 % Sodium 100 / 200 100 / 100 Chloride (Mini-Bag +) 100 ML @ 25 mls/hr IVPB Q8H [facility] Rx#: [id number] Potassium Phosphate 44 MEQ In 0 260 / 260 .9 % Sodium Chloride 250 ML @ 40 mls/hr IVPB ONCE ONE Rx#: [id number] Vancocin 1,000 MG In 0.9 % 250 / 250 Sodium Chloride 250 ML @ 167 mls/hr IVPB ONCE ONE Rx#: [id number] Oral 0 / 0 Tube Feeding 55 / 64 72 / 72 Blood Product 886 / 886 376 / 376 Cryoprecipitate Pooled Unit 170 / 170 [id number] Platelet Pheresis Lp Irr 1st 323 / 323 Unit [id number] Platelet Pheresis Lp Irr 2nd 393 / 393 Unit [id number] Rbcs Leuko Poor As-1 Unit 0 / 0 376 / 376 [id number] Free Water Intake Amount 0 / 0 0 / 0 Output: Hilda 1255 / 1905 2005 Catheter 0 / 0 0 / 0 0 / 0 Other: Weight 81.8 kg 81.8 kg 81.8 kg Blood Glucose* 140 Fluid Removed by Prismaflex [id number] Patient Weight 08/20/18 23:59 Weight 81.8 kg - General physical appearance chronically ill, other (87-year-old critically ill patient in the ICU) - ENT atraumatic, normocephalic - Neck Neck exam: trachea midline - Respiratory normal expansion, normal respiratory effort, clear to auscultation - Cardiovascular Cardiovascular exam: Present: RRR, regular rhythm, no murmurs/rubs/gallops - Abdomen Abdomen: Present: soft (Soft, nontender abdomen. No signs of guarding, rigid ity, rebound tenderness. Absent/hypoactive bowel sounds. Surgical wound is clean and dry and intact.) - Incision Incision: Present: clean and dry, intact - Labs 08/20/18 03:30 08/20/18 03:30 Diabetes panel 08/19/18 08/19/18 08/20/18 Range/Units 09:22 16:08 00:50 Sodium 139 140 137 (136-145) mEq/L Potassium 3.3 L 3.7 3.5 (3.5-5.1) mEq/L Chloride 105 106 108 H (98-107) mEq/L Carbon Dioxide 24 26 25 (23-29) mEq/L BUN 23 21 15 (8-23) mg/dL Creatinine 1.59 H 1.44 H 1.05 (0.60-1.20) mg/dL Glucose 142 H 114 H 136 H (70-105) mg/dL Calcium 8.4 L 8.5 L 9.2 (8.6-10.3) mg/dL 08/20/18 Range/Units 03:30 Sodium 140 (136-145) mEq/L Potassium 3.5 (3.5-5.1) mEq/L Chloride 106 (98-107) mEq/L Carbon Dioxide 25 (23-29) mEq/L BUN 14 (8-23) mg/dL Creatinine 1.03 (0.60-1.20) mg/dL Glucose 139 H (70-105) mg/dL Calcium 9.2 (8.6-10.3) mg/dL Calcium panel 08/19/18 08/19/18 08/20/18 Range/Units 09:22 16:08 00:50 Calcium 8.4 L 8.5 L 9.2 (8.6-10.3) mg/dL 08/20/18 Range/Units 03:30 Calcium 9.2 (8.6-10.3) mg/dL Pituitary panel 08/19/18 08/19/18 08/20/18 Range/Units 09:22 16:08 00:50 Sodium 139 140 137 (136-145) mEq/L Potassium 3.3 L 3.7 3.5 (3.5-5.1) mEq/L Chloride 105 106 108 H (98-107) mEq/L Carbon Dioxide 24 26 25 (23-29) mEq/L BUN 23 21 15 (8-23) mg/dL Creatinine 1.59 H 1.44 H 1.05 (0.60-1.20) mg/dL Glucose 142 H 114 H 136 H (70-105) mg/dL Calcium 8.4 L 8.5 L 9.2 (8.6-10.3) mg/dL 08/20/18 Range/Units 03:30 Sodium 140 (136-145) mEq/L Potassium 3.5 (3.5-5.1) mEq/L Chloride 106 (98-107) mEq/L Carbon Dioxide 25 (23-29) mEq/L BUN 14 (8-23) mg/dL Creatinine 1.03 (0.60-1.20) mg/dL Glucose 139 H (70-105) mg/dL Calcium 9.2 (8.6-10.3) mg/dL Adrenal panel 08/19/18 08/19/18 08/20/18 Range/Units 09:22 16:08 00:50 Sodium 139 140 137 (136-145) mEq/L Potassium 3.3 L 3.7 3.5 (3.5-5.1) mEq/L Chloride 105 106 108 H (98-107) mEq/L Carbon Dioxide 24 26 25 (23-29) mEq/L BUN 23 21 15 (8-23) mg/dL Creatinine 1.59 H 1.44 H 1.05 (0.60-1.20) mg/dL Glucose 142 H 114 H 136 H (70-105) mg/dL Calcium 8.4 L 8.5 L 9.2 (8.6-10.3) mg/dL 08/20/18 Range/Units 03:30 Sodium 140 (136-145) mEq/L Potassium 3.5 (3.5-5.1) mEq/L Chloride 106 (98-107) mEq/L Carbon Dioxide 25 (23-29) mEq/L BUN 14 (8-23) mg/dL Creatinine 1.03 (0.60-1.20) mg/dL Glucose 139 H (70-105) mg/dL Calcium 9.2 (8.6-10.3) mg/dL Consult Discharge Plan - Plan Referrals: Julian Bhatt DO [Primary Care Provider] - <Alfredo Thompson - Last Filed: 08/20/18 14:56> Date of Encounter: 08/20/18 Objective Vital Signs - Last 8 Hours Temp Pulse Resp BP Pulse Ox 08/20/18 14:00 88 22 91/59 100 08/20/18 13:24 20 91/59 100 08/20/18 13:00 89 22 86/55 100 08/20/18 12:00 97.4 F L 91 22 92/57 100 08/20/18 11:45 20 100 08/20/18 11:15 20 100 08/20/18 11:00 93 20 80/56 100 08/20/18 10:00 90 20 85/57 100 08/20/18 09:00 93 20 91/57 100 08/20/18 08:00 97.4 F L 91 20 94/58 100 08/20/18 07:35 20 91/59 100 Intake and Output 08/19/18 08/20/18 08/20/18 23:59 07:59 15:59 Intake Total 1751 / 92288 1929.5 / 2269.5 340 / 2269.5 Output Total 1255 / 1905 2005 Balance 496 / 9536 -76.5 / 263.5 340 / 263.5 Intake: IV Fluids 810 / 62622 1481.5 / 1681.5 200 / 1681.5 Calcium Chloride 4,000 MG In 0. 970 / 1070 100 / 1070 9 % Sodium Chloride 1,000 ML @ 40 mls/hr CRRT CONT [facility] Rx#: [id number] PrismaSATE BGK 4/2.5 5,000 ML @ 0 / 8000 1000 mls/hr CRRT CONT [facility] Rx#: [id number] PRECEDEX Premix 400 mcg In 100 200 / 400 100 / 100 ml @ 0.2 MCG/KG/HR 4.09 mls/hr IVC .Q24H [facility] Rx#:[id number] EPINEPHrine 5 MG In Dextrose 5% 0 / 0 250 ML @ 2 MCG/MIN 6.12 mls/hr IVC CONT [facility] Rx#:[id number] FentaNYL (PF) 1,000 MCG In 0.9 100 / 254 100 / 100 % Sodium Chloride 80 ML @ 50 MCG/HR 5 mls/hr IVC CONT [facility] Rx #:[id number] Levophed 8 MG In Dextrose 5% 0 / 0 250 ML @ 5 MCG/MIN 9.68 mls/hr IVC CONT [facility] Rx#:[id number] Phenylephrine 75 MG In Dextrose 111.5 / 111.5 5% 250 ML @ 100 MCG/MIN 20.6 mls/hr IVC CONT [facility] Rx#: [id number] Zosyn 3.375 GM In 0.9 % Sodium 200 / 300 100 / 300 Chloride (Mini-Bag +) 100 ML @ 25 mls/hr IVPB Q8H [facility] Rx#: [id number] Potassium Phosphate 44 MEQ In 0 260 / 260 .9 % Sodium Chloride 250 ML @ 40 mls/hr IVPB ONCE ONE Rx#: [id number] Vancocin 1,000 MG In 0.9 % 250 / 250 Sodium Chloride 250 ML @ 167 mls/hr IVPB ONCE ONE Rx#: [id number] Oral 0 / 0 Tube Feeding 55 / 64 72 / 142 70 / 142 Blood Product 886 / 886 376 / 376 Cryoprecipitate Pooled Unit 170 / 170 [id number] Platelet Pheresis Lp Irr 1st 323 / 323 Unit [id number] Platelet Pheresis Lp Irr 2nd 393 / 393 Unit [id number] Rbcs Leuko Poor As-1 Unit 0 / 0 376 / 376 [id number] Free Water 70 / 70 Free Water Intake Amount 0 / 0 0 / 0 Output: Hilda 1255 / 1905 2005 Catheter 0 / 0 0 / 0 0 / 0 Other: Weight 81.8 kg 81.8 kg Fluid Removed by Prismaflex [id number] Patient Weight 08/20/18 23:59 Weight 81.8 kg - Labs 08/20/18 03:30 08/20/18 03:30 Diabetes panel 08/19/18 08/20/18 08/20/18 Range/Units 16:08 00:50 03:30 Sodium 140 137 140 (136-145) mEq/L Potassium 3.7 3.5 3.5 (3.5-5.1) mEq/L Chloride 106 108 H 106 (98-107) mEq/L Carbon Dioxide 26 25 25 (23-29) mEq/L BUN 21 15 14 (8-23) mg/dL Creatinine 1.44 H 1.05 1.03 (0.60-1.20) mg/dL Glucose 114 H 136 H 139 H (70-105) mg/dL Calcium 8.5 L 9.2 9.2 (8.6-10.3) mg/dL Calcium panel 08/19/18 08/20/18 08/20/18 Range/Units 16:08 00:50 03:30 Calcium 8.5 L 9.2 9.2 (8.6-10.3) mg/dL Phosphorus (2.7-4.5) mg/dL 08/20/18 Range/Units 03:30 Calcium (8.6-10.3) mg/dL Phosphorus 1.7 L (2.7-4.5) mg/dL Pituitary panel 08/19/18 08/20/18 08/20/18 Range/Units 16:08 00:50 03:30 Sodium 140 137 140 (136-145) mEq/L Potassium 3.7 3.5 3.5 (3.5-5.1) mEq/L Chloride 106 108 H 106 (98-107) mEq/L Carbon Dioxide 26 25 25 (23-29) mEq/L BUN 21 15 14 (8-23) mg/dL Creatinine 1.44 H 1.05 1.03 (0.60-1.20) mg/dL Glucose 114 H 136 H 139 H (70-105) mg/dL Calcium 8.5 L 9.2 9.2 (8.6-10.3) mg/dL Adrenal panel 08/19/18 08/20/18 08/20/18 Range/Units 16:08 00:50 03:30 Sodium 140 137 140 (136-145) mEq/L Potassium 3.7 3.5 3.5 (3.5-5.1) mEq/L Chloride 106 108 H 106 (98-107) mEq/L Carbon Dioxide 26 25 25 (23-29) mEq/L BUN 21 15 14 (8-23) mg/dL Creatinine 1.44 H 1.05 1.03 (0.60-1.20) mg/dL Glucose 114 H 136 H 139 H (70-105) mg/dL Calcium 8.5 L 9.2 9.2 (8.6-10.3) mg/dL - Attending Attestation I examined this patient and my medical decision-making was reviewed with the Resident Physician. I agree with the documented findings, disposition and treatment plan as described except to the extent set forth below. The patient is seen and evaluated on morning rounds with the acute care surgery team and resident. The patient remains critically ill. She has no signs of on going hemorrhage. We will continue maximum supportive care. Alfredo Thompson MD FACS
[2018-08-20 07:31] LABS: Magnesium 1.7 mg/dL (1.6-2.6); Phosphorous 1.7 mg/dL (2.7-4.5)
--- NOTE | 2018-08-20 08:37 | Pulmonology Progress Note ---
<Jhon Barrera - Last Filed: 08/20/18 11:04> Date of Encounter: 08/20/18 Time of Encounter: 08:37 Assessment and Plan (1) Septic shock Current Visit: Yes Status: Acute Patient is in septic shock requiring vasopressors. Patient had been on epinephrine and norepinephrine however her vasopressor requirement has significantly decreased. The patient is in transition from norepinephrine to phenylephrine. Overnight the patient did require one unit of packed red blood cells, 1 of cryoprecipitate and 1 of platelets.. The patient septic shock seems to be improving. (2) Acute kidney injury superimposed on CKD Current Visit: Yes Status: Acute Patient does have a history of chronic kidney disease stage III according to the family. There is a superimposed acute kidney injury with a creatinine of 1.05. Nephrology has been consult. The patient will continue Hilda today. (3) Hypotension Current Visit: Yes Status: Acute Patient's hypotension has significantly improved. Patient's pressure requ irement has significantly decreased. The patient was switched from Levophed to phenylephrine. Blood pressures have been maintaining on a low-dose of phenylephrine. Qualifiers: Hypotension type: other hypotension type Qualified Code(s): I95.89 - Other hypotension (4) DIC (disseminated intravascular coagulation) Current Visit: Yes Status: Acute Patient's DIC seems to be improving. Patient has a INR of 1.2, fibrinogen of 199, platelets of 160 and the patient's hemoglobin is 8.3. Parameters for treating the patient are per Hem/Onc recommendations. Patient did require one unit of packed red blood cells, 1 of cryoprecipitate and 1 of platelets yesterday evening 08/19. (5) Pneumonia Current Visit: Yes Status: Acute Due to concern for possible pneumonia the patient was started on Zosyn and vanco mycin. Qualifiers: Pneumonia type: due to unspecified organism Laterality: unspecified laterality Lung location: unspecified part of lung Qualified Code(s): J18.9 - Pneumonia, unspecified organism (6) Splenic hemorrhage Current Visit: Yes Status: Acute CT scan was performed of the abdomen and pelvis shows splenomegaly with concern for possible splenic hemorrhage. 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 Acute care surgery is following the patient. (7) Anemia Current Visit: Yes Status: Acute Patient did have initial anemia of 6.4. The patient was transfused with 1 unit of packed red blood cells on the evening of 08/19/18. The patient's hemoglobin did respond. Patient's hemoglobin this morning is 8.3. We will continue to transfuse as appropriate with a goal of 8 or greater. Qualifiers: Anemia type: unspecified type Qualified Code(s): D64.9 - Anemia, unspecified (8) Elevated INR Current Visit: Yes Status: Acute Patient did initially have an elevated INR of 2.4. She was not on Coumadin. Patient did receive 4 units of FFP. Patient's repeat INR today is 1.2. (9) Leukocytosis Current Visit: Yes Status: Acute Patient's leukocytosis has worsened since yesterday. It is 30.4 today. We will continue to monitor the patient's white blood cell count. Patient has Zosyn and vancomycin ordered. Qualifiers: Leukocytosis type: unspecified Qualified Code(s): D72.829 - Elevated white blood cell count, unspecified (10) Lactic acid acidosis Current Visit: Yes Status: Acute Patient does have a lactic acidosis with a lactic acid of 2.5. Her lactic acid is trending back down. We will continue to monitor the patient's lactic acid level. (11) Hypokalemia Current Visit: Yes Status: Acute Patient's potassium was 3.5. Patient's potassium will be replaced. (12) DVT prophylaxis Current Visit: Yes Status: Acute Patient has SCDs ordered for DVT prophylaxis. Subjective Principal diagnosis: MARISA Interval history: There are no acute events overnight however the patient's pressor requirement had decreased. Patient's laboratory testing seems to be improving. The patient is intubated and sedated and is unable to provide any additional history at this time. Objective PUL Vital signs: Last Vital Signs Temp 97.4 F L 08/20/18 08:00 Pulse 94 08/20/18 08:00 Resp 20 08/20/18 08:00 BP 94/58 08/20/18 08:00 Pulse Ox 100 08/20/18 08:00 General appearance: other (Patient is intubated and sedated) Eyes: nonicteric, other (Pupils are minimally reactive) Effort: mildly labored Auscultation: bilateral: other (Coarse breath sounds) Cardiovascular: regular rate and rhythm Gastrointestinal: hypoactive bowel sounds, soft, non-distended, other (Surgical dressings in place and dry) Extremities: no cyanosis, pink and warm, edema (2+ pitting edema) Musculoskeletal: no deformities other (Patient is sedated and intubated) other (Patient is sedated and intubated) Ventilator Settings Ventilator Settings: Ventilator Settings, Last 8 Hours Ventilator Tidal Volume 440 Setting Ventilator Tidal Volume 440 Setting Ventilator Tidal Volume 440 Setting Ventilator Tidal Volume 440 Setting Ventilator Tidal Volume 440 Setting Ventilator Tidal Volume 440 Setting Ventilator Tidal Volume 440 Setting Ventilator Tidal Volume 440 Setting Ventilator Tidal Volume 440 Setting Ventilator Tidal Volume 440 Setting Ventilator Tidal Volume 440 Setting Ventilator Tidal Volume 440 Setting Ventilator Respiratory Rate 20 Setting Ventilator Respiratory Rate 20 Setting Ventilator Respiratory Rate 20 Setting Ventilator Respiratory Rate 20 Setting Ventilator Respiratory Rate 20 Setting Ventilator Respiratory Rate 20 Setting Ventilator Respiratory Rate 20 Setting Ventilator Respiratory Rate 20 Setting Ventilator Respiratory Rate 20 Setting Ventilator Respiratory Rate 20 Setting Ventilator Respiratory Rate 20 Setting Ventilator Respiratory Rate 20 Setting Actual Respiratory Rate 20 Actual Respiratory Rate 20 Actual Respiratory Rate 20 Actual Respiratory Rate 20 Positive End Expiratory 8 Pressure Positive End Expiratory 8 Pressure Positive End Expiratory 8 Pressure Positive End Expiratory 8 Pressure Positive End Expiratory 8 Pressure Positive End Expiratory 8 Pressure Positive End Expiratory 8 Pressure Positive End Expiratory 8 Pressure Positive End Expiratory 8 Pressure Positive End Expiratory 8 Pressure Positive End Expiratory 8 Pressure Positive End Expiratory 8 Pressure Peak Inspiratory Airway 26 Pressure Peak Inspiratory Airway 25 Pressure Peak Inspiratory Airway 26 Pressure Peak Inspiratory Airway 27 Pressure Results - Laboratory Findings CBC and BMP: 08/20/18 03:30 08/20/18 03:30 ABG ABG pH 7.44 pH Units (7.32-7.45) 08/20/18 05:23 ABG pCO2 43 mmHg (35-45) 08/20/18 05:23 ABG pO2 92 mmHg (85-104) 08/20/18 05:23 ABG O2 Saturation 97 % (95-98) 08/20/18 05:23 PT/INR, D-dimer PT 12.8 Seconds (9.4-12.1) H 08/20/18 03:30 Abnormal lab findings: Abnormal lab results WBC 30.4 K/mcL (4.3-11.1) H* 08/20/18 03:30 RBC 2.84 M/mcL (3.82-4.97) L 08/20/18 03:30 Hgb 8.3 g/dL (11.5-15.4) L 08/20/18 03:30 Hct 24.1 % (35.3-44.9) L 08/20/18 03:30 MCHC 30.0 g/dL (31.6-35.5) L 08/18/18 04:10 RDW 15.4 % (11.5-14.5) H 08/20/18 03:30 Plt Count 63 K/mcL (140-400) L 08/19/18 16:08 Immature Gran % 14.5 % (0-4) H 08/18/18 22:25 16.0 % (0-4) H 08/19/18 16:08 1.0 % (0) H 08/19/18 16:08 4.0 % (0) H 08/19/18 09:22 22.0 K/mcL (1.6-8.9) H 08/19/18 16:08 10.2 K/mcL (0.6-4.6) H 08/18/18 01:10 2.0 K/mcL (0.0-1.3) H 08/19/18 16:08 1.4 K/mcL (0.0-0.6) H 08/19/18 16:08 Nucleated RBCs/100 WBC 4.1 /100 WBC (0) H 08/19/18 16:08 Present (Not Present) A 08/18/18 22:25 Present (Not Present) A 08/19/18 16:08 Present (Not Present) A 08/19/18 16:08 Decreased (Normal) L 08/19/18 16:08 Present (Not Present) A 08/19/18 16:08 Immature Plt Fraction 9.8 % (1.1-6.1) H 08/19/18 09:22 1+ (Not Present) A 08/18/18 12:35 PT 12.8 Seconds (9.4-12.1) H 08/20/18 03:30 APTT 49.2 Seconds (26.0-36.0) H 08/18/18 01:10 146 mg/dL (169-393) L 08/19/18 16:08 ABG pH 7.12 pH Units (7.32-7.45) L* 08/18/18 09:08 ABG pCO2 31 mmHg (35-45) L 08/18/18 07:01 ABG pO2 157 mmHg (85-104) H 08/19/18 04:51 ABG HCO3 29 mEq/L (21-27) H 08/20/18 05:23 ABG Total CO2 31 mEq/L (20-26) H 08/20/18 05:23 ABG O2 Saturation 99 % (95-98) H 08/19/18 04:51 ABG Base Excess 5 mEq/L (-2 to 3) H 08/20/18 05:23 Sodium 134 mEq/L (136-145) L 08/17/18 04:24 Potassium 3.3 mEq/L (3.5-5.1) L 08/19/18 09:22 Chloride 108 mEq/L (98-107) H 08/20/18 00:50 Carbon Dioxide 22 mEq/L (23-29) L 08/19/18 03:25 BUN 29 mg/dL (8-23) H 08/19/18 03:25 1.44 mg/dL (0.60-1.20) H 08/19/18 16:08 Est GFR ( Amer) 42 (> 60) L 08/19/18 16:08 Est GFR (Non-Af Amer) 51 (> 60) L 08/20/18 03:30 Glucose 139 mg/dL (70-105) H 08/20/18 03:30 POC Glucose 140 mg/dL (70-99) H 08/19/18 12:13 308 (280-300) H 08/18/18 12:35 Lactic Acid 2.5 mmol/L (0.5-2.2) H 08/20/18 00:50 8.0 mg/dL (2.3-7.6) H 08/18/18 10:35 Calcium 8.5 mg/dL (8.6-10.3) L 08/19/18 16:08 Venous Ioniz Calcium 1.06 mmol/L (1.15-1.35) L 08/20/18 00:22 Phosphorus 1.7 mg/dL (2.7-4.5) L 08/20/18 03:30 1.7 mg/dL (0.3-1.0) H 08/18/18 22:25 0.7 mg/dL (0.0-0.2) H 08/18/18 12:35 AST 7 Units/L (13-39) L 08/16/18 11:55 ALT 5 Units/L (7-52) L 08/16/18 11:55 422 Units/L (140-271) H 08/18/18 10:35 5.8 g/dL (6.4-8.9) L 08/18/18 22:25 2.4 g/dL (3.5-5.7) L 08/19/18 03:25 3.6 g/dL (2.4-3.5) H 08/18/18 12:35 0.8 (1.1-2.2) L 08/18/18 22:25 1.03 mmol/L (1.15-1.35) L 08/18/18 22:53 Turbid (Clear) A 08/16/18 11:36 Ur Specific [place] > 1.030 (1.010-1.025) H 08/16/18 11:36 >=300 mg/dL (Neg-Trace) H 08/16/18 11:36 Trace mg/dL (Negative) H 08/16/18 11:36 Small (Negative) H 08/16/18 11:36 Ur Leukocyte Esterase Small (Negative) H 08/16/18 11:36 30-50 per hpf (0-3) H 08/16/18 11:36 Ur Squamous Epith Cells Many per lpf (None-Few) H 08/16/18 11:36 Present per hpf (None Seen) H 08/16/18 11:36 Ur Culture Indicated? NO. (NO) A 08/16/18 11:36 Antibody Screen POSITIVE A 08/18/18 18:25 Crossmatch See Detail 08/18/18 18:25 - Clinical Findings Intake & Output: Intake & Output 08/19/18 08/20/18 08/20/18 23:59 07:59 15:59 Intake Total 1751 / 36576 1829.5 / 1829.5 Output Total 1255 / 1905 2005 Balance 496 / 6036 -176.5 / -176.5 Weight 81.8 kg 81.8 kg Consult Discharge Plan - Plan Referrals: Julian Bhatt, [Primary Care Provider] - <Doc Ornelas - Last Filed: 08/20/18 13:12> Date of Encounter: 08/20/18 Objective PUL Vital signs: Last Vital Signs Temp 97.4 F L 08/20/18 12:00 Pulse 91 08/20/18 12:00 Resp 22 08/20/18 12:00 BP 92/57 08/20/18 12:00 Pulse Ox 100 08/20/18 12:00 Ventilator Settings Ventilator Settings: Ventilator Settings, Last 8 Hours Ventilator Tidal Volume 440 Setting Ventilator Tidal Volume 440 Setting Ventilator Tidal Volume 440 Setting Ventilator Tidal Volume 440 Setting Ventilator Tidal Volume 440 Setting Ventilator Tidal Volume 440 Setting Ventilator Tidal Volume 440 Setting Ventilator Tidal Volume 440 Setting Ventilator Tidal Volume 440 Setting Ventilator Respiratory Rate 20 Setting Ventilator Respiratory Rate 20 Setting Ventilator Respiratory Rate 20 Setting Ventilator Respiratory Rate 20 Setting Ventilator Respiratory Rate 20 Setting Ventilator Respiratory Rate 20 Setting Ventilator Respiratory Rate 20 Setting Ventilator Respiratory Rate 20 Setting Ventilator Respiratory Rate 20 Setting Actual Respiratory Rate 22 Actual Respiratory Rate 20 Actual Respiratory Rate 20 Actual Respiratory Rate 20 Actual Respiratory Rate 20 Actual Respiratory Rate 20 Positive End Expiratory 5 Pressure Positive End Expiratory 8 Pressure Positive End Expiratory 8 Pressure Positive End Expiratory 8 Pressure Positive End Expiratory 8 Pressure Positive End Expiratory 8 Pressure Positive End Expiratory 8 Pressure Positive End Expiratory 8 Pressure Positive End Expiratory 8 Pressure Peak Inspiratory Airway 25 Pressure Peak Inspiratory Airway 25 Pressure Peak Inspiratory Airway 26 Pressure Peak Inspiratory Airway 28 Pressure Peak Inspiratory Airway 26 Pressure Peak Inspiratory Airway 25 Pressure Results - Laboratory Findings CBC and BMP: 08/20/18 03:30 08/20/18 03:30 ABG ABG pH 7.44 pH Units (7.32-7.45) 08/20/18 05:23 ABG pCO2 43 mmHg (35-45) 08/20/18 05:23 ABG pO2 92 mmHg (85-104) 08/20/18 05:23 ABG O2 Saturation 97 % (95-98) 08/20/18 05:23 PT/INR, D-dimer PT 12.8 Seconds (9.4-12.1) H 08/20/18 03:30 Abnormal lab findings: Abnormal lab results WBC 30.4 K/mcL (4.3-11.1) H* 08/20/18 03:30 RBC 2.84 M/mcL (3.82-4.97) L 08/20/18 03:30 Hgb 8.3 g/dL (11.5-15.4) L 08/20/18 03:30 Hct 24.1 % (35.3-44.9) L 08/20/18 03:30 MCHC 30.0 g/dL (31.6-35.5) L 08/18/18 04:10 RDW 15.4 % (11.5-14.5) H 08/20/18 03:30 Plt Count 63 K/mcL (140-400) L 08/19/18 16:08 Immature Gran % 14.5 % (0-4) H 08/18/18 22:25 16.0 % (0-4) H 08/19/18 16:08 1.0 % (0) H 08/19/18 16:08 4.0 % (0) H 08/19/18 09:22 22.0 K/mcL (1.6-8.9) H 08/19/18 16:08 10.2 K/mcL (0.6-4.6) H 08/18/18 01:10 2.0 K/mcL (0.0-1.3) H 08/19/18 16:08 1.4 K/mcL (0.0-0.6) H 08/19/18 16:08 Nucleated RBCs/100 WBC 4.1 /100 WBC (0) H 08/19/18 16:08 Present (Not Present) A 08/18/18 22:25 Present (Not Present) A 08/19/18 16:08 Present (Not Present) A 08/19/18 16:08 Decreased (Normal) L 08/19/18 16:08 Present (Not Present) A 08/19/18 16:08 Immature Plt Fraction 9.8 % (1.1-6.1) H 08/19/18 09:22 1+ (Not Present) A 08/18/18 12:35 PT 12.8 Seconds (9.4-12.1) H 08/20/18 03:30 APTT 49.2 Seconds (26.0-36.0) H 08/18/18 01:10 146 mg/dL (169-393) L 08/19/18 16:08 ABG pH 7.12 pH Units (7.32-7.45) L* 08/18/18 09:08 ABG pCO2 31 mmHg (35-45) L 08/18/18 07:01 ABG pO2 157 mmHg (85-104) H 08/19/18 04:51 ABG HCO3 29 mEq/L (21-27) H 08/20/18 05:23 ABG Total CO2 31 mEq/L (20-26) H 08/20/18 05:23 ABG O2 Saturation 99 % (95-98) H 08/19/18 04:51 ABG Base Excess 5 mEq/L (-2 to 3) H 08/20/18 05:23 Sodium 134 mEq/L (136-145) L 08/17/18 04:24 Potassium 3.3 mEq/L (3.5-5.1) L 08/19/18 09:22 Chloride 108 mEq/L (98-107) H 08/20/18 00:50 Carbon Dioxide 22 mEq/L (23-29) L 08/19/18 03:25 BUN 29 mg/dL (8-23) H 08/19/18 03:25 1.44 mg/dL (0.60-1.20) H 08/19/18 16:08 Est GFR ( Amer) 42 (> 60) L 08/19/18 16:08 Est GFR (Non-Af Amer) 51 (> 60) L 08/20/18 03:30 Glucose 139 mg/dL (70-105) H 08/20/18 03:30 POC Glucose 140 mg/dL (70-99) H 08/19/18 12:13 308 (280-300) H 08/18/18 12:35 Lactic Acid 2.5 mmol/L (0.5-2.2) H 08/20/18 00:50 8.0 mg/dL (2.3-7.6) H 08/18/18 10:35 Calcium 8.5 mg/dL (8.6-10.3) L 08/19/18 16:08 Venous Ioniz Calcium 1.06 mmol/L (1.15-1.35) L 08/20/18 00:22 Phosphorus 1.7 mg/dL (2.7-4.5) L 08/20/18 03:30 1.7 mg/dL (0.3-1.0) H 08/18/18 22:25 0.7 mg/dL (0.0-0.2) H 08/18/18 12:35 AST 7 Units/L (13-39) L 08/16/18 11:55 ALT 5 Units/L (7-52) L 08/16/18 11:55 422 Units/L (140-271) H 08/18/18 10:35 5.8 g/dL (6.4-8.9) L 08/18/18 22:25 2.4 g/dL (3.5-5.7) L 08/19/18 03:25 3.6 g/dL (2.4-3.5) H 08/18/18 12:35 0.8 (1.1-2.2) L 08/18/18 22:25 1.03 mmol/L (1.15-1.35) L 08/18/18 22:53 Turbid (Clear) A 08/16/18 11:36 Ur Specific [place] > 1.030 (1.010-1.025) H 08/16/18 11:36 >=300 mg/dL (Neg-Trace) H 08/16/18 11:36 Trace mg/dL (Negative) H 08/16/18 11:36 Small (Negative) H 08/16/18 11:36 Ur Leukocyte Esterase Small (Negative) H 08/16/18 11:36 30-50 per hpf (0-3) H 08/16/18 11:36 Ur Squamous Epith Cells Many per lpf (None-Few) H 08/16/18 11:36 Present per hpf (None Seen) H 08/16/18 11:36 Ur Culture Indicated? NO. (NO) A 08/16/18 11:36 Antibody Screen POSITIVE A 08/18/18 18:25 Crossmatch See Detail 08/18/18 18:25 - Clinical Findings Intake & Output: Intake & Output 08/19/18 08/20/18 08/20/18 23:59 07:59 15:59 Intake Total 1751 / 09590 1929.5 / 2149.5 220 / 2149.5 Output Total 1255 / 1905 2005 Balance 496 / 9536 -76.5 / 143.5 220 / 143.5 Weight 81.8 kg 81.8 kg - Attending Attestation I examined this patient and my medical decision-making was reviewed with the Resident Physician. I agree with the documented findings, disposition and treatment plan as described except to the extent set forth below. We independently had [id number] contact with the patient I spent 31min of Critical Care time with this patient. It involved decision making of high complexity to assess, manipulate, and support vital organ system failure and/or to prevent further life threatening deterioration of the pat ient's condition. The time involved in the performance of separately reportable procedures was not counted toward critical care time. Patient seen and examined at bedside Labs, radiology, chart personally reviewed. Management was reviewed during multidisciplinary critical care rounds. 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 ID: On antibiotics with planned to de-escalate leukocytosis today I suspect is related to lymphoproliferative disorder Heme/Onc: DIC improving; Anemia/Thrombocytopenia stable. 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 Lines: All lines examined without evidence of infection : Dispo: Critically ill CODE: DNAR. and son updated at bedside.
[2018-08-20] MEDS: Pantoprazole 40 MG VIAL IVP SCH (08:43)
[2018-08-20] MEDS: Levothyroxine Sodium 100 MCG VIAL IVP SCH (08:43)
[2018-08-20] MEDS: Chlorhexidine Rinse 15 ML MOUTHWASH MM SCH ×2 (08:44→19:42)
[2018-08-20] MEDS ORDERED: Potassium Chloride Elixir 20 MEQ/15 ML UDC PO ONE (09:45)
[2018-08-20 10:29] LABS: VBG Ionized Calcium 1.22 mmol/L (1.15-1.35)
[2018-08-20] MEDS: D5 IVC SCH (15:07)
[2018-08-20] MEDS: WATER IVC SCH (15:07)
[2018-08-20] MEDS: PHENYLEPHRINE IVC SCH (15:07)
[2018-08-20 16:33] LABS: Hematocrit 26.2 % (35.3-44.9); Hemoglobin 8.8 g/dL (11.5-15.4); Mean Corpuscular HGB Conc 33.6 g/dL (31.6-35.5); Mean Corpuscular Hemoglobin 28.9 pg (28.0-33.3); Mean Corpuscular Volume 86.2 fL (83.0-100.0); Mean Platelet Volume 10.2 fL (9.4-12.4); Nucleated Red Blood Cells 6.6 /100 WBC (0); Platelet Count 111 K/mcL (140-400); Red Blood Count 3.04 M/mcL (3.82-4.97); Red Cell Distribution Width 16.1 % (11.5-14.5)
[2018-08-20 16:40] LABS: INR 1.2; Prothrombin Time 13.3 Seconds (9.4-12.1)
[2018-08-20 16:45] LABS: VBG Ionized Calcium 1.15 mmol/L (1.15-1.35)
[2018-08-20 16:53] LABS: BUN/Creatinine Ratio 10 (6-26); Blood Urea Nitrogen 8 mg/dL (8-23); Calcium 9.4 mg/dL (8.6-10.3); Carbon Dioxide 28 mEq/L (23-29); Chloride 107 mEq/L (98-107); Glucose 139 mg/dL (70-105); Osmolality,Calculated 291 (280-300); Potassium 3.9 mEq/L (3.5-5.1); Sodium 140 mEq/L (136-145); Uric Acid 1.8 mg/dL (2.3-7.6); eGFR For Non-African Americans > 60 (> 60)
[2018-08-20 16:54] LABS: Eosinophils # 0.8 K/mcL (0.0-0.6); Hypochromasia Present (Not Present); Lymphocytes # 4.6 K/mcL (0.6-4.6); Monocytes # 1.5 K/mcL (0.0-1.3); Neutrophils # 30.4 K/mcL (1.6-8.9)
[2018-08-20 16:57] LABS: Anisocytosis 1+ (Not Present); Platelet Estimate Slight Decrease (Normal)
[2018-08-20 17:52] LABS: Phosphorous 1.2 mg/dL (2.7-4.5)
[2018-08-20] MEDS: Norepinephrine 8 MG in D5% in Water 250 ML IVC SCH (19:48)
[2018-08-20] MEDS: Potassium Phosphate 44 MEQ in 0.9 % Sodium Chloride 250 ML IVPB PRN (21:51)
[2018-08-21] MEDS: Dexmedetomidine HCl 400 MCG/100 ML MLS IVC SCH ×3 (01:04→16:23)
[2018-08-21] MEDS: CITRATE DEXTROSE CRRT SCH ×8 (01:55→19:46)
[2018-08-21] MEDS: Piperacillin/Tazobactam 3.375 GM in 0.9 % Sodium Chloride Mini Bag 100 ML IVPB SCH ×3 (02:13→17:58)
[2018-08-21 02:15] LABS: VBG Ionized Calcium 1.05 mmol/L (1.15-1.35)
[2018-08-21] MEDS: Ipratropium/Albuterol Neb 3 ML IH SCH ×4 (04:04→23:14)
[2018-08-21] MEDS: FentaNYL (PF) 1,000 MCG in 0.9 % Sodium Chloride 80 ML IVC SCH (04:22)
[2018-08-21] MEDS: PrismaSATE BGK 4/2.5 5,000 ML CRRT SCH ×8 (04:23→19:45)
[2018-08-21 04:31] LABS: VBG Ionized Calcium 1.14 mmol/L (1.15-1.35)
[2018-08-21 04:32] LABS: Eosinophils # 1.6 K/mcL (0.0-0.6); Hematocrit 25.8 % (35.3-44.9); Hemoglobin 8.8 g/dL (11.5-15.4); Mean Corpuscular HGB Conc 34.1 g/dL (31.6-35.5); Mean Corpuscular Hemoglobin 29.3 pg (28.0-33.3); Mean Platelet Volume 10.9 fL (9.4-12.4); Nucleated Red Blood Cells 6.5 /100 WBC (0); Red Cell Distribution Width 16.3 % (11.5-14.5)
[2018-08-21 04:39] LABS: Platelet Count 78 K/mcL (140-400)
[2018-08-21 04:46] LABS: ABG Base Excess 5 mEq/L (-2 to 3); ABG HCO3 30 mEq/L (21-27); ABG Oxygen Saturation 98 % (95-98); ABG PCO2 45 mmHg (35-45); ABG PH 7.44 pH Units (7.32-7.45); ABG PO2 95 mmHg (85-104); ABG TCO2 32 mEq/L (20-26); Blood Gas Modality ASSIST CONTROL; Blood Gas PEEP 5 cm H2O; Blood Gas Respiration Rate 20; Blood Gas VT 440 cc
[2018-08-21] MEDS: Artificial Tears SOLN 15 ML BOTTLE BOTH EYES SCH ×6 (04:50→23:23)
[2018-08-21 04:51] LABS: Magnesium 1.9 mg/dL (1.6-2.6)
[2018-08-21 04:55] LABS: INR 1.2; Prothrombin Time 13.9 Seconds (9.4-12.1)
[2018-08-21 04:58] LABS: BUN/Creatinine Ratio 10 (6-26); Blood Urea Nitrogen 7 mg/dL (8-23); Carbon Dioxide 29 mEq/L (23-29); Chloride 105 mEq/L (98-107); Glucose 167 mg/dL (70-105); Osmolality,Calculated 296 (280-300); Potassium 4.2 mEq/L (3.5-5.1); Sodium 142 mEq/L (136-145); eGFR For Non-African Americans > 60 (> 60)
[2018-08-21] MEDS: *HR* Heparin 5,000 UNIT/ML VIAL SQ SCH ×2 (05:11→17:31)
[2018-08-21] MEDS: EPINEPHrine 5 MG in D5% in Water 250 ML IVC SCH (05:12)
[2018-08-21 05:20] LABS: Phosphorous 2.7 mg/dL (2.7-4.5)
[2018-08-21 05:22] LABS: Lymphocytes # 3.2 K/mcL (0.6-4.6); Monocytes # 4.8 K/mcL (0.0-1.3); Platelet Estimate Marked Decrease (Normal)
[2018-08-21] MEDS: Norepinephrine 8 MG in D5% in Water 250 ML IVC SCH (07:40)
[2018-08-21] MEDS: Pantoprazole 40 MG VIAL IVP SCH (07:48)
[2018-08-21] MEDS: Chlorhexidine Rinse 15 ML MOUTHWASH MM SCH ×2 (07:48→19:47)
[2018-08-21] MEDS: Levothyroxine Sodium 100 MCG VIAL IVP SCH (07:48)
[2018-08-21] MEDS: Potassium Phosphate 44 MEQ in 0.9 % Sodium Chloride 250 ML IVPB PRN (07:49)
--- NOTE | 2018-08-21 07:51 | AcuteCareSurgery Progress Note ---
Date of Encounter: 08/21/18 Time of Encounter: 07:30 - Assessment and Plan (1) Splenic hemorrhage Current Visit: Yes Status: Acute S/P splenectomy (2) Lymphadenopathy Current Visit: Yes Status: Acute (3) HTN (hypertension) Current Visit: No Status: Chronic Hypotensive on pressors. Qualifiers: Hypertension type: essential hypertension Qualified Code(s): I10 - Essential (primary) hypertension (4) Respiratory failure Current Visit: Yes Status: Acute On vent Qualifiers: Qualified Code(s): J96.00 - Acute respiratory failure, unspecified whether with hypoxia or hypercapnia (5) DIC (disseminated intravascular coagulation) Current Visit: Yes Status: Acute Treated successfully; resolving (6) MARISA (acute kidney injury) Current Visit: Yes Status: Acute On dialysis (7) CKD (chronic kidney disease), stage III Current Visit: Yes Status: Acute as above (8) Leukocytosis Current Visit: Yes Status: Acute WBC 40,000; maintain IV abx. Add diflucan IV daily Qualifiers: Qualified Code(s): D72.829 - Elevated white blood cell count, unspecified Subjective Narrative: Pt is sedated on the vent. Objective Vital Signs - Last 8 Hours Temp Pulse Resp BP Pulse Ox 08/21/18 07:45 17 86/53 100 08/21/18 07:00 79 20 86/53 100 08/21/18 06:00 80 20 93/56 100 08/21/18 05:06 20 88/54 100 08/21/18 05:00 78 20 80/50 100 08/21/18 04:04 20 90/54 100 08/21/18 04:00 94.1 F L 77 20 86/52 100 08/21/18 03:52 75 08/21/18 03:00 77 20 115/63 100 08/21/18 02:00 79 22 75/51 100 08/21/18 01:25 27 113/65 93 08/21/18 01:00 79 20 89/51 100 08/21/18 00:16 79 08/21/18 00:00 95.0 F L 80 20 77/46 100 Intake and Output 08/20/18 08/20/18 08/21/18 15:59 23:59 07:59 Intake Total 496 / 4145.5 1709 / 4145.5 762.8 / 762.8 Output Total 0 / 7 964 / 3257 2081 / 2081 Balance 496 / 888.5 745 / 888.5 -1319.2 / -1319.2 Intake: IV Fluids 346 / 3447.5 1620 / 3447.5 682.8 / 682.8 Calcium Chloride 4,000 MG In 0. 100 / 0 1000 / 2070 0 / 0 9 % Sodium Chloride 1,000 ML @ 40 mls/hr CRRT CONT [facility] Rx#: [id number] PrismaSATE BGK 4/2.5 5,000 ML @ 0 / 0 0 / 0 1000 mls/hr CRRT CONT [facility] Rx#: [id number] PRECEDEX Premix 400 mcg In 100 100 / 200 185 / 185 ml @ 0.2 MCG/KG/HR 4.09 mls/hr IVC .Q24H [facility] Rx#:[id number] FentaNYL (PF) 1,000 MCG In 0.9 30 / 130 70 / 70 % Sodium Chloride 80 ML @ 50 MCG/HR 5 mls/hr IVC CONT [facility] Rx #:[id number] Phenylephrine 75 MG In Dextrose 146 / 293.5 36 / 293.5 67.8 / 67.8 5% 250 ML @ 100 MCG/MIN 20.6 mls/hr IVC CONT [facility] Rx#: [id number] Magnesium Sulfate 2 GM In 0.9 % 104 / 104 Sodium Chloride 100 ML @ 52 mls/hr IVPB Q6H [facility]N Rx#: [id number] Zosyn 3.375 GM In 0.9 % Sodium 100 / 400 100 / 400 100 / 100 Chloride (Mini-Bag +) 100 ML @ 25 mls/hr IVPB Q8H [facility] Rx#: [id number] Potassium Phosphate 44 MEQ In 0 260 / 260 .9 % Sodium Chloride 250 ML @ 40 mls/hr IVPB Q10H PRN Rx#: [id number] Vancocin 1,000 MG In 0.9 % 250 / 250 Sodium Chloride 250 ML @ 167 mls/hr IVPB ONCE ONE Rx#: [id number] Tube Feeding 80 / 252 89 / 252 80 / 80 Free Water 70 / 70 Output: Hilda 964 / 3257 2081 / 2081 Catheter 0 / 0 0 / 0 0 / 0 Other: Weight 90 kg Blood Glucose* 139 159 Fluid Removed by Prismaflex 210 262 282 Patient Weight 08/21/18 23:59 Weight 90 kg - General physical appearance other (Pt sedated on vent. On dialysis. On vasopressor.) - Respiratory clear to auscultation - Cardiovascular Cardiovascular exam: Present: RRR - Abdomen Abdomen: Present: bowel sounds present, soft - Incision Incision: Present: clean and dry, intact - Integumentary other (mild ecchymosis) - Psychiatric other (sedated on vent) - Labs 08/21/18 04:15 08/21/18 04:16 Diabetes panel 08/20/18 08/21/18 Range/Units 16:18 04:16 Sodium 140 142 (136-145) mEq/L Potassium 3.9 4.2 (3.5-5.1) mEq/L Chloride 107 105 (98-107) mEq/L Carbon Dioxide 28 29 (23-29) mEq/L BUN 8 7 L (8-23) mg/dL Creatinine 0.80 0.67 (0.60-1.20) mg/dL Glucose 139 H 167 H (70-105) mg/dL Calcium 9.4 10.0 (8.6-10.3) mg/dL Calcium panel 08/20/18 08/21/18 Range/Units 16:18 04:16 Calcium 9.4 10.0 (8.6-10.3) mg/dL Phosphorus 1.2 L 2.7 (2.7-4.5) mg/dL Pituitary panel 08/20/18 08/21/18 Range/Units 16:18 04:16 Sodium 140 142 (136-145) mEq/L Potassium 3.9 4.2 (3.5-5.1) mEq/L Chloride 107 105 (98-107) mEq/L Carbon Dioxide 28 29 (23-29) mEq/L BUN 8 7 L (8-23) mg/dL Creatinine 0.80 0.67 (0.60-1.20) mg/dL Glucose 139 H 167 H (70-105) mg/dL Calcium 9.4 10.0 (8.6-10.3) mg/dL Adrenal panel 08/20/18 08/21/18 Range/Units 16:18 04:16 Sodium 140 142 (136-145) mEq/L Potassium 3.9 4.2 (3.5-5.1) mEq/L Chloride 107 105 (98-107) mEq/L Carbon Dioxide 28 29 (23-29) mEq/L BUN 8 7 L (8-23) mg/dL Creatinine 0.80 0.67 (0.60-1.20) mg/dL Glucose 139 H 167 H (70-105) mg/dL Calcium 9.4 10.0 (8.6-10.3) mg/dL Consult Discharge Plan - Plan Referrals: Julian Bhatt DO [Primary Care Provider] -
[2018-08-21] MEDS ORDERED: Aminoglycoside Consult 1 EACH MC ONE (08:17)
[2018-08-21] MEDS: Calcium Chloride 4,000 MG in 0.9 % Sodium Chloride 1,000 ML CRRT SCH ×2 (08:44→19:48)
[2018-08-21] MEDS: Fluconazole 100 MG/50 ML 100 MG/50 ML BAG IVPB SCH (09:18)
[2018-08-21] MEDS: WATER IVC SCH (09:25)
[2018-08-21] MEDS: D5 IVC SCH (09:25)
[2018-08-21] MEDS: PHENYLEPHRINE IVC SCH (09:25)
--- NOTE | 2018-08-21 09:47 | Oncology Inp Progress Note ---
<Hetal Harris M - Last Filed: 08/21/18 13:42> Date of Encounter: 08/21/18 Time of Encounter: 08:50 (1) DIC (disseminated intravascular coagulation) Current Visit: Yes Status: Acute Assessment and plan: Patient noted to have approximately 4 g blood loss after splenic hemorrhage, patient decompensated and was intubated and placed in ICU. Abnormalities could be DIC or coagulopathies related to large amount of blood loss from splenic hemorrhage. Will treat for DIC at this time: 08/21/18 labs: INR 1.2 Fibrinogen 179 Platelets 78 Hgb 8.8 Plan: Continue supportive measures Fibrinogen, coags, and CBC every 8 hours. Parameters: Give cryoprecipitate if Fibrinogen < 150 Give platelets if Plt < 75 Give pRBC's for Hgb < 8 Give FFP if INR > 1.5. prognosis: guarded, poor (2) Splenic hemorrhage Current Visit: Yes Status: Acute Assessment and plan: Assessment and plan: Plan for splenomegaly with infart and areas of rupture. 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 SPEP was negative for M-Tobias, Her Urine VERONICA does show a positive BJP Overall, concerning for underlying clonal plasma cell or lymphoproliferative disorder Oncology: Subj Interval history: [place] continues to be sedated and intubated. She is currently receiving Precedex and Fentanyl drips. She is continues on LUX and anuric. Mottling noted to bilateral fingertips. Nurse notes that patient has been responsive and squeezed family members hand, however, unresponsive to touch or voice at this time. Family is awaiting results of pathology from spleen to decide to continue current care. - Respiratory Respiratory exam: Present: decreased breath sounds - Cardiovascular Cardiovascular exam: Present: RRR - Extremities Exam Additional comments: BUE and BLE edema - Neurological Exam Neurological exam: Present: altered - Skin Skin exam: Present: dry, mottled, pallor, warm Oncology: Obj Data - Labs CBC & Chem 7: 08/21/18 04:15 08/21/18 04:16 Consult Discharge Plan - Plan Referrals: Julian Bhatt DO [Primary Care Provider] - Inpatient Charges Provider: Dr. Michelle Sloan <Edinson Sloan - Last Filed: 08/21/18 14:55> Date of Encounter: 08/21/18 (1) MARISA (acute kidney injury) Current Visit: Yes Status: Acute (2) Abnormal CT of the abdomen Current Visit: Yes Status: Acute (3) DIC (disseminated intravascular coagulation) Current Visit: Yes Status: Acute Oncology: Obj Data - Labs CBC & Chem 7: 08/21/18 04:15 08/21/18 04:16 Inpatient Charges Provider: Dr. Michelle Sloan Follow up - Inpatient: [id number] - Attending Attestation I examined this patient and my medical decision-making was reviewed with the Advanced Practice Nurse. I agree with the documented findings, disposition and treatment plan as described except to the extent set forth below. Ms. Sy is sedated and unable to respond to verbal or physical stimuli. Fingertips are mottled/purple but warm. Coarse breath sounds. Tachycardia improved. There is been no dramatic change her health. She remains on pressor support as well as CVVHD. Pathology is pending. Laboratory blood work appears adequate. No new recommendations today.
--- NOTE | 2018-08-21 09:57 | Pulmonology Progress Note ---
<Matias Luciano Geoff - Last Filed: 08/21/18 19:25> Date of Encounter: 08/21/18 Time of Encounter: 09:57 Assessment and Plan (1) Acute respiratory failure Current Visit: Yes Status: Acute Patient remains intubated status post splenectomy Sedated with fentanyl and Precedex We will continue to attempt sedation and vent weaning Qualifiers: Respiratory failure complication: unspecified whether with hypoxia or hyper capnia Qualified Code(s): J96.00 - Acute respiratory failure, unspecified whether with hypoxia or hypercapnia (2) Leukocytosis Current Visit: Yes Status: Acute Patient has significantly elevated white count above 40 There is a concern for neoplastic process Oncology is following and pathology is pending In discussion with family decisions regarding goals of care will be made pending pathology results Qualifiers: Leukocytosis type: unspecified Qualified Code(s): D72.829 - Elevated white blood cell count, unspecified (3) Septic shock Current Visit: Yes Status: Acute Patient is in septic shock requiring vasopressors. Patient had been on epinephrine and norepinephrine however her vasopressor requirement has significantly decreased. The patient is now only on Duogn. (4) Pneumonia Current Visit: Yes Status: Acute Due to concern for possible pneumonia the patient was started on Zosyn and vancomycin. Currently day 6 for each respectively vancomycin stopped today Qualifiers: Pneumonia type: due to unspecified organism Laterality: unspecified laterality Lung location: unspecified part of lung Qualified Code(s): J18.9 - Pneumonia, unspecified organism (5) Splenic hemorrhage Current Visit: Yes Status: Acute CT scan was performed of the abdomen and pelvis shows splenomegaly with concern for possible splenic hemorrhage. 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 Acute care surgery is following the patient. No acute complications (6) Anemia Current Visit: Yes Status: Acute Patient did have initial anemia of 6.4. The patient was transfused with 1 unit of packed red blood cells on the evening of 08/19/18. The patient's hemoglobin did respond. Patient's hemoglobin this morning is 8.8. We will continue to transfuse as appropriate with a goal of 8 or greater. Qualifiers: Anemia type: unspecified type Qualified Code(s): D64.9 - Anemia, unspecified (7) DIC (disseminated intravascular coagulation) Current Visit: Yes Status: Acute Patient's DIC seems to be improving. Patient has a INR of 1.2, fibrinogen of 185, platelets of 53 and the patient's hemoglobin is 8.8. Parameters for treating the patient are per Hem/Onc recommendations. Patient did require one unit of packed red blood cells, 1 of cryoprecipitate and 1 of platelets 08/19. (8) MARISA (acute kidney injury) Current Visit: Yes Status: Resolved Patient does have a history of chronic kidney disease stage III according to the family. She did present with a acute kidney injury Resolved Subjective Principal diagnosis: MARISA Interval history: No acute events overnight, patient remains intubated. Objective PUL Vital signs: Last Vital Signs Temp 97.5 F L 08/21/18 08:00 Pulse 75 08/21/18 09:00 Resp 19 08/21/18 09:00 BP 90/55 08/21/18 09:00 Pulse Ox 100 08/21/18 09:00 General appearance: no acute distress (Medically sedated) Neck: other (ET tube in place) Effort: normal Auscultation: bilateral: clear Cardiovascular: regular rate and rhythm Gastrointestinal: absent bowel sounds, soft, non-distended Integumentary: normal Extremities: no cyanosis, edema Musculoskeletal: no deformities unable to assess due to mental status (Patient did respond to physical verbal stimuli, followed some commands) Ventilator Settings Ventilator Settings: Ventilator Settings, Last 8 Hours Ventilator Tidal Volume 440 Setting Ventilator Tidal Volume 440 Setting Ventilator Tidal Volume 450 Setting Ventilator Tidal Volume 440 Setting Ventilator Tidal Volume 440 Setting Ventilator Tidal Volume 440 Setting Ventilator Tidal Volume 440 Setting Ventilator Tidal Volume 440 Setting Ventilator Tidal Volume 440 Setting Ventilator Tidal Volume 440 Setting Ventilator Tidal Volume 440 Setting Ventilator Tidal Volume 440 Setting Ventilator Respiratory Rate 16 Setting Ventilator Respiratory Rate 16 Setting Ventilator Respiratory Rate 16 Setting Ventilator Respiratory Rate 20 Setting Ventilator Respiratory Rate 20 Setting Ventilator Respiratory Rate 20 Setting Ventilator Respiratory Rate 20 Setting Ventilator Respiratory Rate 20 Setting Ventilator Respiratory Rate 20 Setting Ventilator Respiratory Rate 20 Setting Ventilator Respiratory Rate 20 Setting Ventilator Respiratory Rate 20 Setting Actual Respiratory Rate 20 Actual Respiratory Rate 20 Actual Respiratory Rate 18 Actual Respiratory Rate 20 Actual Respiratory Rate 20 Actual Respiratory Rate 20 Actual Respiratory Rate 20 Actual Respiratory Rate 20 Actual Respiratory Rate 20 Actual Respiratory Rate 20 Actual Respiratory Rate 22 Positive End Expiratory 5 Pressure Positive End Expiratory 5 Pressure Positive End Expiratory 5 Pressure Positive End Expiratory 5 Pressure Positive End Expiratory 5 Pressure Positive End Expiratory 5 Pressure Positive End Expiratory 5 Pressure Positive End Expiratory 5 Pressure Positive End Expiratory 5 Pressure Positive End Expiratory 5 Pressure Positive End Expiratory 5 Pressure Positive End Expiratory 5 Pressure Peak Inspiratory Airway 23 Pressure Peak Inspiratory Airway 23 Pressure Peak Inspiratory Airway 16 Pressure Peak Inspiratory Airway 23 Pressure Peak Inspiratory Airway 24 Pressure Peak Inspiratory Airway 23 Pressure Peak Inspiratory Airway 23 Pressure Peak Inspiratory Airway 22 Pressure Peak Inspiratory Airway 23 Pressure Peak Inspiratory Airway 23 Pressure Peak Inspiratory Airway 21 Pressure Results - Laboratory Findings CBC and BMP: 08/21/18 17:35 08/21/18 17:35 ABG ABG pH 7.44 pH Units (7.32-7.45) 08/21/18 04:42 ABG pCO2 45 mmHg (35-45) 08/21/18 04:42 ABG pO2 95 mmHg (85-104) 08/21/18 04:42 ABG O2 Saturation 98 % (95-98) 08/21/18 04:42 PT/INR, D-dimer PT 13.9 Seconds (9.4-12.1) H 08/21/18 04:15 Abnormal lab findings: Abnormal lab results WBC 40.0 K/mcL (4.3-11.1) H* 08/21/18 04:15 RBC 3.00 M/mcL (3.82-4.97) L 08/21/18 04:15 Hgb 8.8 g/dL (11.5-15.4) L 08/21/18 04:15 Hct 25.8 % (35.3-44.9) L 08/21/18 04:15 MCHC 30.0 g/dL (31.6-35.5) L 08/18/18 04:10 RDW 16.3 % (11.5-14.5) H 08/21/18 04:15 Plt Count 78 K/mcL (140-400) L 08/21/18 04:15 Immature Gran % 14.5 % (0-4) H 08/18/18 22:25 10.0 % (0-4) H 08/21/18 04:15 1.0 % (0) H 08/20/18 16:18 2.0 % (0) H 08/20/18 16:18 6.0 % (0) H 08/21/18 04:15 28.0 K/mcL (1.6-8.9) H 08/21/18 04:15 10.2 K/mcL (0.6-4.6) H 08/18/18 01:10 4.8 K/mcL (0.0-1.3) H 08/21/18 04:15 1.6 K/mcL (0.0-0.6) H 08/21/18 04:15 Nucleated RBCs/100 WBC 6.5 /100 WBC (0) H 08/21/18 04:15 Present (Not Present) A 08/18/18 22:25 Present (Not Present) A 08/19/18 16:08 Present (Not Present) A 08/19/18 16:08 Marked Decrease (Normal) L 08/21/18 04:15 Present (Not Present) A 08/19/18 16:08 Immature Plt Fraction 9.8 % (1.1-6.1) H 08/19/18 09:22 Present (Not Present) A 08/20/18 16:18 1+ (Not Present) A 08/20/18 16:18 PT 13.9 Seconds (9.4-12.1) H 08/21/18 04:15 APTT 49.2 Seconds (26.0-36.0) H 08/18/18 01:10 146 mg/dL (169-393) L 08/19/18 16:08 ABG pH 7.12 pH Units (7.32-7.45) L* 08/18/18 09:08 ABG pCO2 31 mmHg (35-45) L 08/18/18 07:01 ABG pO2 157 mmHg (85-104) H 08/19/18 04:51 ABG HCO3 30 mEq/L (21-27) H 08/21/18 04:42 ABG Total CO2 32 mEq/L (20-26) H 08/21/18 04:42 ABG O2 Saturation 99 % (95-98) H 08/19/18 04:51 ABG Base Excess 5 mEq/L (-2 to 3) H 08/21/18 04:42 Sodium 134 mEq/L (136-145) L 08/17/18 04:24 Potassium 3.3 mEq/L (3.5-5.1) L 08/19/18 09:22 Chloride 108 mEq/L (98-107) H 08/20/18 00:50 Carbon Dioxide 22 mEq/L (23-29) L 08/19/18 03:25 BUN 7 mg/dL (8-23) L 08/21/18 04:16 1.44 mg/dL (0.60-1.20) H 08/19/18 16:08 Est GFR ( Amer) 42 (> 60) L 08/19/18 16:08 Est GFR (Non-Af Amer) 51 (> 60) L 08/20/18 03:30 Glucose 167 mg/dL (70-105) H 08/21/18 04:16 POC Glucose 140 mg/dL (70-99) H 08/19/18 12:13 308 (280-300) H 08/18/18 12:35 Lactic Acid 3.7 mmol/L (0.5-2.2) H 08/21/18 04:15 1.8 mg/dL (2.3-7.6) L 08/20/18 16:18 Calcium 8.5 mg/dL (8.6-10.3) L 08/19/18 16:08 Venous Ioniz Calcium 1.14 mmol/L (1.15-1.35) L 08/21/18 04:29 Phosphorus 1.2 mg/dL (2.7-4.5) L 08/20/18 16:18 1.7 mg/dL (0.3-1.0) H 08/18/18 22:25 0.7 mg/dL (0.0-0.2) H 08/18/18 12:35 AST 7 Units/L (13-39) L 08/16/18 11:55 ALT 5 Units/L (7-52) L 08/16/18 11:55 422 Units/L (140-271) H 08/18/18 10:35 5.8 g/dL (6.4-8.9) L 08/18/18 22:25 2.4 g/dL (3.5-5.7) L 08/19/18 03:25 3.6 g/dL (2.4-3.5) H 08/18/18 12:35 0.8 (1.1-2.2) L 08/18/18 22:25 1.03 mmol/L (1.15-1.35) L 08/18/18 22:53 Turbid (Clear) A 08/16/18 11:36 Ur Specific [place] > 1.030 (1.010-1.025) H 08/16/18 11:36 >=300 mg/dL (Neg-Trace) H 08/16/18 11:36 Trace mg/dL (Negative) H 08/16/18 11:36 Small (Negative) H 08/16/18 11:36 Ur Leukocyte Esterase Small (Negative) H 08/16/18 11:36 30-50 per hpf (0-3) H 08/16/18 11:36 Ur Squamous Epith Cells Many per lpf (None-Few) H 08/16/18 11:36 Present per hpf (None Seen) H 08/16/18 11:36 Ur Culture Indicated? NO. (NO) A 08/16/18 11:36 Antibody Screen POSITIVE A 08/18/18 18:25 Crossmatch See Detail 08/18/18 18:25 - Clinical Findings Intake & Output: Intake & Output 08/20/18 08/21/18 08/21/18 23:59 07:59 15:59 Intake Total 1709 / 4145.5 777.8 / 1987.5 1209.7 / 1987.5 Output Total 964 / 3257 2082 / 2615 533 / 2615 Balance 745 / 888.5 -1304.2 / -627.5 676.7 / -627.5 Weight 90 kg Consult Discharge Plan - Plan Referrals: Julian Bhatt DO [Primary Care Provider] - <Sophia Kiser - Last Filed: 08/21/18 21:52> Date of Encounter: 08/21/18 Objective PUL Vital signs: Last Vital Signs Temp 97.5 F L 08/21/18 08:00 Pulse 74 08/21/18 10:00 Resp 18 08/21/18 10:04 BP 95/68 08/21/18 10:04 Pulse Ox 100 08/21/18 10:04 Ventilator Settings Ventilator Settings: Ventilator Settings, Last 8 Hours Ventilator Tidal Volume 450 Setting Ventilator Tidal Volume 440 Setting Ventilator Tidal Volume 440 Setting Ventilator Tidal Volume 440 Setting Ventilator Tidal Volume 450 Setting Ventilator Tidal Volume 440 Setting Ventilator Tidal Volume 440 Setting Ventilator Tidal Volume 440 Setting Ventilator Tidal Volume 440 Setting Ventilator Tidal Volume 440 Setting Ventilator Tidal Volume 440 Setting Ventilator Tidal Volume 440 Setting Ventilator Tidal Volume 440 Setting Ventilator Respiratory Rate 16 Setting Ventilator Respiratory Rate 16 Setting Ventilator Respiratory Rate 16 Setting Ventilator Respiratory Rate 16 Setting Ventilator Respiratory Rate 16 Setting Ventilator Respiratory Rate 20 Setting Ventilator Respiratory Rate 20 Setting Ventilator Respiratory Rate 20 Setting Ventilator Respiratory Rate 20 Setting Ventilator Respiratory Rate 20 Setting Ventilator Respiratory Rate 20 Setting Ventilator Respiratory Rate 20 Setting Ventilator Respiratory Rate 20 Setting Actual Respiratory Rate 17 Actual Respiratory Rate 20 Actual Respiratory Rate 20 Actual Respiratory Rate 20 Actual Respiratory Rate 18 Actual Respiratory Rate 20 Actual Respiratory Rate 20 Actual Respiratory Rate 20 Actual Respiratory Rate 20 Actual Respiratory Rate 20 Actual Respiratory Rate 20 Actual Respiratory Rate 20 Positive End Expiratory 5 Pressure Positive End Expiratory 5 Pressure Positive End Expiratory 5 Pressure Positive End Expiratory 5 Pressure Positive End Expiratory 5 Pressure Positive End Expiratory 5 Pressure Positive End Expiratory 5 Pressure Positive End Expiratory 5 Pressure Positive End Expiratory 5 Pressure Positive End Expiratory 5 Pressure Positive End Expiratory 5 Pressure Positive End Expiratory 5 Pressure Positive End Expiratory 5 Pressure Peak Inspiratory Airway 19 Pressure Peak Inspiratory Airway 23 Pressure Peak Inspiratory Airway 23 Pressure Peak Inspiratory Airway 23 Pressure Peak Inspiratory Airway 16 Pressure Peak Inspiratory Airway 23 Pressure Peak Inspiratory Airway 24 Pressure Peak Inspiratory Airway 23 Pressure Peak Inspiratory Airway 23 Pressure Peak Inspiratory Airway 22 Pressure Peak Inspiratory Airway 23 Pressure Peak Inspiratory Airway 23 Pressure Results - Laboratory Findings CBC and BMP: 08/21/18 17:35 08/21/18 17:35 ABG ABG pH 7.44 pH Units (7.32-7.45) 08/21/18 04:42 ABG pCO2 45 mmHg (35-45) 08/21/18 04:42 ABG pO2 95 mmHg (85-104) 08/21/18 04:42 ABG O2 Saturation 98 % (95-98) 08/21/18 04:42 PT/INR, D-dimer PT 13.9 Seconds (9.4-12.1) H 08/21/18 04:15 Abnormal lab findings: Abnormal lab results WBC 40.0 K/mcL (4.3-11.1) H* 08/21/18 04:15 RBC 3.00 M/mcL (3.82-4.97) L 08/21/18 04:15 Hgb 8.8 g/dL (11.5-15.4) L 08/21/18 04:15 Hct 25.8 % (35.3-44.9) L 08/21/18 04:15 MCHC 30.0 g/dL (31.6-35.5) L 08/18/18 04:10 RDW 16.3 % (11.5-14.5) H 08/21/18 04:15 Plt Count 78 K/mcL (140-400) L 08/21/18 04:15 Immature Gran % 14.5 % (0-4) H 08/18/18 22:25 10.0 % (0-4) H 08/21/18 04:15 1.0 % (0) H 08/20/18 16:18 2.0 % (0) H 08/20/18 16:18 6.0 % (0) H 08/21/18 04:15 28.0 K/mcL (1.6-8.9) H 08/21/18 04:15 10.2 K/mcL (0.6-4.6) H 08/18/18 01:10 4.8 K/mcL (0.0-1.3) H 08/21/18 04:15 1.6 K/mcL (0.0-0.6) H 08/21/18 04:15 Nucleated RBCs/100 WBC 6.5 /100 WBC (0) H 08/21/18 04:15 Present (Not Present) A 08/18/18 22:25 Present (Not Present) A 08/19/18 16:08 Present (Not Present) A 08/19/18 16:08 Marked Decrease (Normal) L 08/21/18 04:15 Present (Not Present) A 08/19/18 16:08 Immature Plt Fraction 9.8 % (1.1-6.1) H 08/19/18 09:22 Present (Not Present) A 08/20/18 16:18 1+ (Not Present) A 08/20/18 16:18 PT 13.9 Seconds (9.4-12.1) H 08/21/18 04:15 APTT 49.2 Seconds (26.0-36.0) H 08/18/18 01:10 146 mg/dL (169-393) L 08/19/18 16:08 ABG pH 7.12 pH Units (7.32-7.45) L* 08/18/18 09:08 ABG pCO2 31 mmHg (35-45) L 08/18/18 07:01 ABG pO2 157 mmHg (85-104) H 08/19/18 04:51 ABG HCO3 30 mEq/L (21-27) H 08/21/18 04:42 ABG Total CO2 32 mEq/L (20-26) H 08/21/18 04:42 ABG O2 Saturation 99 % (95-98) H 08/19/18 04:51 ABG Base Excess 5 mEq/L (-2 to 3) H 08/21/18 04:42 Sodium 134 mEq/L (136-145) L 08/17/18 04:24 Potassium 3.3 mEq/L (3.5-5.1) L 08/19/18 09:22 Chloride 108 mEq/L (98-107) H 08/20/18 00:50 Carbon Dioxide 22 mEq/L (23-29) L 08/19/18 03:25 BUN 7 mg/dL (8-23) L 08/21/18 04:16 1.44 mg/dL (0.60-1.20) H 08/19/18 16:08 Est GFR ( Amer) 42 (> 60) L 08/19/18 16:08 Est GFR (Non-Af Amer) 51 (> 60) L 08/20/18 03:30 Glucose 167 mg/dL (70-105) H 08/21/18 04:16 POC Glucose 140 mg/dL (70-99) H 08/19/18 12:13 308 (280-300) H 08/18/18 12:35 Lactic Acid 3.7 mmol/L (0.5-2.2) H 08/21/18 04:15 1.8 mg/dL (2.3-7.6) L 08/20/18 16:18 Calcium 8.5 mg/dL (8.6-10.3) L 08/19/18 16:08 Venous Ioniz Calcium 1.14 mmol/L (1.15-1.35) L 08/21/18 04:29 Phosphorus 1.2 mg/dL (2.7-4.5) L 08/20/18 16:18 1.7 mg/dL (0.3-1.0) H 08/18/18 22:25 0.7 mg/dL (0.0-0.2) H 08/18/18 12:35 AST 7 Units/L (13-39) L 08/16/18 11:55 ALT 5 Units/L (7-52) L 08/16/18 11:55 422 Units/L (140-271) H 08/18/18 10:35 5.8 g/dL (6.4-8.9) L 08/18/18 22:25 2.4 g/dL (3.5-5.7) L 08/19/18 03:25 3.6 g/dL (2.4-3.5) H 08/18/18 12:35 0.8 (1.1-2.2) L 08/18/18 22:25 1.03 mmol/L (1.15-1.35) L 08/18/18 22:53 Turbid (Clear) A 08/16/18 11:36 Ur Specific [place] > 1.030 (1.010-1.025) H 08/16/18 11:36 >=300 mg/dL (Neg-Trace) H 08/16/18 11:36 Trace mg/dL (Negative) H 08/16/18 11:36 Small (Negative) H 08/16/18 11:36 Ur Leukocyte Esterase Small (Negative) H 08/16/18 11:36 30-50 per hpf (0-3) H 08/16/18 11:36 Ur Squamous Epith Cells Many per lpf (None-Few) H 08/16/18 11:36 Present per hpf (None Seen) H 08/16/18 11:36 Ur Culture Indicated? NO. (NO) A 08/16/18 11:36 Antibody Screen POSITIVE A 08/18/18 18:25 Crossmatch See Detail 08/18/18 18:25 - Clinical Findings Intake & Output: Intake & Output 08/20/18 08/21/18 08/21/18 23:59 07:59 15:59 Intake Total 1709 / 4145.5 777.8 / 2237.5 1459.7 / 2237.5 Output Total 964 / 3257 2082 / 2952 870 / 2952 Balance 745 / 888.5 -1304.2 / -714.5 589.7 / -714.5 Weight 90 kg - Attending Attestation I examined this patient and my medical decision-making was [facility]. I agree with the documented findings, disposition and treatment plan as described except to the extent set forth below. Patient seen and examined. Labs, radiology, chart personally reviewed. Agree with resident's history and physical, assessment, plan with following comments: [employer]: Patient does not follows commands, She respond to painful stimul Pulmonary: Acceptable oxygenation and ventilation and changed vent setting with repeating ABG with acceptable range. She is not stable for SBT at this time and suspect her condition could deteriorate further. Cardiovascular: pt is in shock and most likely vasodilatory in nature and support with pressors at this time. GI: Nutrition per dietary and GI prophylaxis per routine Heme: DVT prophylaxis per routine and suspicion for lymphoma, however awaiting for final pathology report, Family is aware of the poor prognosis. ID: Continue antibiotics and plan to de-escalation and stop vancomycin Renal; urine out put and renal function reviewed and renal replacement treatment with monitoring electrolytes Endorcine: blood glucose is monitored Lines: all lines checked and no evidence of infections Skin: skin care to prevent pressure ulcers per nursing routine care. Prognosis is poor I spent 32 min of Critical Care time with this patient. It involved decision making of high complexity to assess, manipulate, and support vital organ system failure and/or to prevent further life threatening deterioration of the patient's condition. The time involved in the performance of separately reportable procedures was not counted toward critical care time.
[2018-08-21 10:10] LABS: VBG Ionized Calcium 1.15 mmol/L (1.15-1.35)
--- NOTE | 2018-08-21 12:18 | Nephrology Progress Note ---
Date of Encounter: 08/21/18 Time of Encounter: 08:15 - Assessment and Plan (1) MARISA (acute kidney injury) Current Visit: Yes Status: Resolved Anuric. Hilda is providing all the clearance. BFR 150 and tolerating Hilda. Continue CVVHDF with citrate and aiming for Net+75-100mL/hr as tolerated. Replete 'lytes as needed Continue the citrate regional anticoagulation as tolerated, and continue the BFR of 150, which ideally will help extend the Hilda filter half-life. Monitoring platelets and LFTs, and iCa plus ACT. To help improve her hypervolemic volume status, will continue UF at Net + 75-100 mL/hr, only as tolerated by hemodynamics such as blood pressure and heart rate. She remains high risk, very complex E/M and MDM. Will continue to closely fo llow. Updated the ICU team. (2) CKD (chronic kidney disease), stage III Current Visit: Yes Status: Acute (3) Hypophosphatemia Current Visit: Yes Status: Acute (4) Hypokalemia Current Visit: Yes Status: Acute (5) Lactic acid acidosis Current Visit: Yes Status: Acute Subjective Principal diagnosis: MARISA Interval history: The patient was seen and examined in the ICU. Her spouse was present and he was updated. I discussed her Hilda with the [employer]RE [employer]. The was intubated/sedated, thus limiting the Subjective portion of the note. Objective - Vital Signs Vital signs: Vital Signs Temp Pulse Resp BP Pulse Ox 08/21/18 11:17 16 108/61 100 08/21/18 11:00 85 17 100/57 100 08/21/18 10:04 18 95/68 08/21/18 10:00 74 18 87/52 08/21/18 09:00 75 19 90/55 08/21/18 08:00 97.5 F L 78 19 90/55 08/21/18 07:45 17 86/53 08/21/18 07:00 79 20 86/53 08/21/18 06:00 80 20 93/56 08/21/18 05:06 20 88/54 100 08/21/18 05:00 78 20 80/50 100 08/21/18 04:04 20 90/54 08/21/18 04:00 94.1 F L 77 20 86/52 08/21/18 03:52 75 08/21/18 03:00 77 20 115/63 100 08/21/18 02:00 79 22 75/51 100 08/21/18 01:25 27 113/65 93 08/21/18 01:00 79 20 89/51 100 08/21/18 00:16 79 08/21/18 00:00 95.0 F L 80 20 77/46 100 08/20/18 23:17 20 95/58 100 08/20/18 23:00 72 20 99/54 100 08/20/18 22:00 94.4 F L 73 20 82/48 08/20/18 21:23 20 88/51 100 08/20/18 21:00 74 20 85/50 100 08/20/18 20:17 73 08/20/18 20:00 94.1 F L 76 20 97/56 100 08/20/18 19:46 20 96/57 100 08/20/18 19:00 82 21 95/60 100 08/20/18 18:00 82 23 99/62 100 08/20/18 17:32 22 101/62 100 08/20/18 17:00 84 23 101/62 100 08/20/18 16:00 97 F L 87 22 98/56 100 08/20/18 15:20 23 100 08/20/18 15:00 86 23 99/60 100 08/20/18 14:00 88 22 91/59 100 08/20/18 13:24 20 91/59 100 08/20/18 13:00 89 22 86/55 100 Intake and Output 08/20/18 08/21/18 08/21/18 23:59 07:59 15:59 Intake Total 1709 / 4145.5 777.8 / 2252.5 1474.7 / 2252.5 Output Total 964 / 3257 2082 / 3367 1285 / 3367 Balance 745 / 888.5 -1304.2 / -1114.5 189.7 / -1114.5 Intake: IV Fluids 1620 / 3447.5 697.8 / 2131.5 1433.7 / 2131.5 Calcium Chloride 4,000 MG In 0. 1000 / 2070 0 / 1280 1280 / 1280 9 % Sodium Chloride 1,000 ML @ 40 mls/hr CRRT CONT [facility] Rx#: [id number] PrismaSATE BGK 4/2.5 5,000 ML @ 0 / 0 0 / 0 0 / 0 1000 mls/hr CRRT CONT [facility] Rx#: [id number] PRECEDEX Premix 400 mcg In 100 100 / 200 200 / 200 ml @ 0.2 MCG/KG/HR 4.09 mls/hr IVC .Q24H [facility] Rx#:[id number] FentaNYL (PF) 1,000 MCG In 0.9 30 / 130 70 / 70 % Sodium Chloride 80 ML @ 50 MCG/HR 5 mls/hr IVC CONT [facility] Rx #:[id number] Phenylephrine 75 MG In Dextrose 36 / 293.5 67.8 / 221.5 153.7 / 221.5 5% 250 ML @ 100 MCG/MIN 20.6 mls/hr IVC CONT [facility] Rx#: [id number] Magnesium Sulfate 2 GM In 0.9 % 104 / 104 Sodium Chloride 100 ML @ 52 mls/hr IVPB Q6H PRN Rx#: [id number] Zosyn 3.375 GM In 0.9 % Sodium 100 / 400 100 / 100 Chloride (Mini-Bag +) 100 ML @ 25 mls/hr IVPB Q8H [facility] Rx#: [id number] Potassium Phosphate 44 MEQ In 0 260 / 260 .9 % Sodium Chloride 250 ML @ 40 mls/hr IVPB Q10H PRN Rx#: [id number] Vancocin 1,000 MG In 0.9 % 250 / 250 Sodium Chloride 250 ML @ 167 mls/hr IVPB ONCE ONE Rx#: [id number] Tube Feeding 89 / 252 80 / 121 41 / 121 Output: Hilda 964 / 3257 2082 / 3367 1285 / 3367 Catheter 0 / 0 0 / 0 0 / 0 Urethral (Galeano) 0 / 0 Other: Weight 90 kg Blood Glucose* 139 159 Fluid Removed by Prismaflex 262 282 215 Patient Weight 08/21/18 23:59 Weight 90 kg - General Appearance Exam: General appearance: Present: sedated on ventilator, intubated EENT: Present: ATNC, PERRL, mucous membranes moist Neck: Present: supple Respiratory: Present: clear Additional Comments: barrel chest Cardiology: Present: edema, regular rate, regular rhythm, normal S1, normal S2 Dialysis Vascular Access: Venous Catheter (Right IJ temporary HD catheter with exit site C/D/I.) Gastrointestinal: Present: normoactive bowel sounds, no tenderness, no guarding Integumentary: Present: ecchymotic Neurological: Intubated/sedated Musculoskeletal: Present: no cyanosis Psych: Limited d/t her intubation/sedation - Lab 08/21/18 17:35 08/21/18 17:35 Most recent lab results 08/21/18 08/21/18 04:16 04:42 ABG pH 7.44 ABG pCO2 45 ABG pO2 95 ABG HCO3 30 H ABG O2 Saturation 98 Calcium 10.0 Phosphorus 2.7 Magnesium 1.9 Consult Discharge Plan - Plan Referrals: Julian Bhatt DO [Primary Care Provider] -
[2018-08-21 12:33] LABS: VBG Ionized Calcium 1.17 mmol/L (1.15-1.35)
--- NOTE | 2018-08-21 13:20 | Palliative Progress Note ---
Date of Encounter: 08/21/18 Time of Encounter: 11:55 - Assessment and plan (1) Generalized pain Current Visit: Yes Status: Acute Assessment and plan: Continues with Fentanyl drip at 50mcg/hr. Continue and monitor. She appears c omfortable. (2) Anxiety Current Visit: No Status: Acute Assessment and plan: Continues with Precedex, currently at 0.5/hr. Monitor (3) Goals of care, counseling/discussion Current Visit: No Status: Acute Assessment and plan: Met with , Marbella and pt sister in patient's room. Discussed goals of care for 30 min. understands prognosis is poor, although states he was told that her "numbers were better". He is awaiting pathology from surgery, I discussed that likely wouldn't change the scenario. He will be getting with his children tonight and see if they can take off work to meet tomorrow. Will continue to follow. (4) Acute kidney injury superimposed on CKD Current Visit: Yes Status: Acute (5) Encounter for palliative care Current Visit: Yes Status: Acute (6) Septic shock Current Visit: Yes Status: Acute (7) Splenic hemorrhage Current Visit: Yes Status: Acute (8) Lymphadenopathy Current Visit: Yes Status: Acute - Time Spent With Patient Total time spent is greater than 50% in coordination of care (as documented) at patient's floor/unit and/or counseling patient: - Subjective Interval history: Patient remains sedated and on vent. Vitals stable with one pressor on. Remains on lilly and anuric. Minimally responsive, does [place] [address]. Path still pending. - Constitutional Vitals: Abnormal lab results WBC 40.0 K/mcL (4.3-11.1) H* 08/21/18 04:15 RBC 3.00 M/mcL (3.82-4.97) L 08/21/18 04:15 Hgb 8.8 g/dL (11.5-15.4) L 08/21/18 04:15 Hct 25.8 % (35.3-44.9) L 08/21/18 04:15 MCHC 30.0 g/dL (31.6-35.5) L 08/18/18 04:10 RDW 16.3 % (11.5-14.5) H 08/21/18 04:15 Plt Count 78 K/mcL (140-400) L 08/21/18 04:15 Immature Gran % 14.5 % (0-4) H 08/18/18 22:25 10.0 % (0-4) H 08/21/18 04:15 1.0 % (0) H 08/20/18 16:18 2.0 % (0) H 08/20/18 16:18 6.0 % (0) H 08/21/18 04:15 28.0 K/mcL (1.6-8.9) H 08/21/18 04:15 10.2 K/mcL (0.6-4.6) H 08/18/18 01:10 4.8 K/mcL (0.0-1.3) H 08/21/18 04:15 1.6 K/mcL (0.0-0.6) H 08/21/18 04:15 Nucleated RBCs/100 WBC 6.5 /100 WBC (0) H 08/21/18 04:15 Present (Not Present) A 08/18/18 22:25 Present (Not Present) A 08/19/18 16:08 Present (Not Present) A 08/19/18 16:08 Marked Decrease (Normal) L 08/21/18 04:15 Present (Not Present) A 08/19/18 16:08 Immature Plt Fraction 9.8 % (1.1-6.1) H 08/19/18 09:22 Present (Not Present) A 08/20/18 16:18 1+ (Not Present) A 08/20/18 16:18 PT 13.9 Seconds (9.4-12.1) H 08/21/18 04:15 APTT 49.2 Seconds (26.0-36.0) H 08/18/18 01:10 146 mg/dL (169-393) L 08/19/18 16:08 ABG pH 7.12 pH Units (7.32-7.45) L* 08/18/18 09:08 ABG pCO2 31 mmHg (35-45) L 08/18/18 07:01 ABG pO2 157 mmHg (85-104) H 08/19/18 04:51 ABG HCO3 30 mEq/L (21-27) H 08/21/18 04:42 ABG Total CO2 32 mEq/L (20-26) H 08/21/18 04:42 ABG O2 Saturation 99 % (95-98) H 08/19/18 04:51 ABG Base Excess 5 mEq/L (-2 to 3) H 08/21/18 04:42 Sodium 134 mEq/L (136-145) L 08/17/18 04:24 Potassium 3.3 mEq/L (3.5-5.1) L 08/19/18 09:22 Chloride 108 mEq/L (98-107) H 08/20/18 00:50 Carbon Dioxide 22 mEq/L (23-29) L 08/19/18 03:25 BUN 7 mg/dL (8-23) L 08/21/18 04:16 1.44 mg/dL (0.60-1.20) H 08/19/18 16:08 Est GFR ( Amer) 42 (> 60) L 08/19/18 16:08 Est GFR (Non-Af Amer) 51 (> 60) L 08/20/18 03:30 Glucose 167 mg/dL (70-105) H 08/21/18 04:16 POC Glucose 166 mg/dL (70-99) H 08/21/18 12:19 308 (280-300) H 08/18/18 12:35 Lactic Acid 3.7 mmol/L (0.5-2.2) H 08/21/18 04:15 1.8 mg/dL (2.3-7.6) L 08/20/18 16:18 Calcium 8.5 mg/dL (8.6-10.3) L 08/19/18 16:08 Venous Ioniz Calcium 1.14 mmol/L (1.15-1.35) L 08/21/18 04:29 Phosphorus 1.2 mg/dL (2.7-4.5) L 08/20/18 16:18 1.7 mg/dL (0.3-1.0) H 08/18/18 22:25 0.7 mg/dL (0.0-0.2) H 08/18/18 12:35 AST 7 Units/L (13-39) L 08/16/18 11:55 ALT 5 Units/L (7-52) L 08/16/18 11:55 422 Units/L (140-271) H 08/18/18 10:35 5.8 g/dL (6.4-8.9) L 08/18/18 22:25 2.4 g/dL (3.5-5.7) L 08/19/18 03:25 3.6 g/dL (2.4-3.5) H 08/18/18 12:35 0.8 (1.1-2.2) L 08/18/18 22:25 1.03 mmol/L (1.15-1.35) L 08/18/18 22:53 Turbid (Clear) A 08/16/18 11:36 Ur Specific [place] > 1.030 (1.010-1.025) H 08/16/18 11:36 >=300 mg/dL (Neg-Trace) H 08/16/18 11:36 Trace mg/dL (Negative) H 08/16/18 11:36 Small (Negative) H 08/16/18 11:36 Ur Leukocyte Esterase Small (Negative) H 08/16/18 11:36 30-50 per hpf (0-3) H 08/16/18 11:36 Ur Squamous Epith Cells Many per lpf (None-Few) H 08/16/18 11:36 Present per hpf (None Seen) H 08/16/18 11:36 Ur Culture Indicated? NO. (NO) A 08/16/18 11:36 Antibody Screen POSITIVE A 08/18/18 18:25 Crossmatch See Detail 08/18/18 18:25 General appearance: Present: no acute distress - Respiratory Additional comments: Breath sounds coarse. Remains on vent - Cardiovascular Cardiovascular exam: Present: +S1, +S2 - GI/Abdominal GI/Abdominal exam: Present: diminished bowel sounds, soft Additional comments: Shankar intact to abd without redness or drainage. Tube feeding trickle at 10ml/hr infusing - Additional comments: Galeano with scant UOP - Extremities Exam Additional comments: Some mottling to fingers noted - Neurological Exam Additional comments: Remains sedated on vent - Skin Skin exam: Present: dry, pallor, warm Palliative Quality Palliative Quality: Screen for Code Status: Yes, Screen for Goals of Care: Yes, Screen for Pain: Yes, If Pain Regimen Started, Initiate Bowel Regimen: NA, Screen for Nausea/Vomitting: Yes Code Status: 08/16/18 13:37 Resuscitation Status: Active [RES] Routine Comment: Resuscitation Status: Full Code 08/18/18 09:29 CODE [Resuscitation Status: Active] [RES] Routine Comment: Resuscitation Status: DNR-Comfort Care-Arrest - Labs CBC & Chem 7: 08/21/18 04:15 08/21/18 04:16 Labs: Laboratory Results - last 24 hr 08/20/18 08/20/18 08/20/18 13:10 16:00 16:14 WBC RBC Hgb Hct MCV MCH MCHC RDW Plt Count MPV Seg Neutrophils % Band Neutrophils % Lymphocytes % Monocytes % Eosinophils % Metamyelocytes % Myelocytes % Blast Cells % Neutrophils # Lymphocytes # Monocytes # Eosinophils # Nucleated RBCs/100 WBC Platelet Estimate Hypochromasia Anisocytosis PT 13.3 H INR 1.2 Fibrinogen 177 Sample Site ABG pH ABG pCO2 ABG pO2 ABG HCO3 ABG Total CO2 ABG O2 Saturation ABG Base Excess Respiration Rate O2 Delivery Device Blood Gas Modality Inspired O2 Tidal Volume PEEP Sodium Potassium Chloride Carbon Dioxide BUN Creatinine Est GFR ( Amer) Est GFR (Non-Af Amer) BUN/Creatinine Ratio Glucose POC Glucose 152 H Calculated Osmolality Lactic Acid 3.3 H Uric Acid Calcium Venous Ioniz Calcium Phosphorus Magnesium Random Vancomycin 08/20/18 08/20/18 08/20/18 16:18 16:18 16:43 WBC 38.5 H* RBC 3.04 L Hgb 8.8 L Hct 26.2 L MCV 86.2 MCH 28.9 MCHC 33.6 RDW 16.1 H Plt Count 111 L MPV 10.2 Seg Neutrophils % 54.0 Band Neutrophils % 25.0 H Lymphocytes % 12.0 Monocytes % 4.0 Eosinophils % 2.0 Metamyelocytes % 1.0 H Myelocytes % 2.0 H Blast Cells % Neutrophils # 30.4 H Lymphocytes # 4.6 Monocytes # 1.5 H Eosinophils # 0.8 H Nucleated RBCs/100 WBC 6.6 H Platelet Estimate Slight Decrease L Hypochromasia Present A Anisocytosis 1+ A PT INR Fibrinogen Sample Site ABG pH ABG pCO2 ABG pO2 ABG HCO3 ABG Total CO2 ABG O2 Saturation ABG Base Excess Respiration Rate O2 Delivery Device Blood Gas Modality Inspired O2 Tidal Volume PEEP Sodium 140 Potassium 3.9 Chloride 107 Carbon Dioxide 28 BUN 8 Creatinine 0.80 Est GFR ( Amer) > 60 Est GFR (Non-Af Amer) > 60 BUN/Creatinine Ratio 10 Glucose 139 H POC Glucose Calculated Osmolality 291 Lactic Acid Uric Acid 1.8 L Calcium 9.4 Venous Ioniz Calcium 1.15 Phosphorus 1.2 L Magnesium Random Vancomycin 08/20/18 08/20/18 08/21/18 21:05 23:17 00:57 WBC RBC Hgb Hct MCV MCH MCHC RDW Plt Count MPV Seg Neutrophils % Band Neutrophils % Lymphocytes % Monocytes % Eosinophils % Metamyelocytes % Myelocytes % Blast Cells % Neutrophils # Lymphocytes # Monocytes # Eosinophils # Nucleated RBCs/100 WBC Platelet Estimate Hypochromasia Anisocytosis PT INR Fibrinogen Sample Site ABG pH ABG pCO2 ABG pO2 ABG HCO3 ABG Total CO2 ABG O2 Saturation ABG Base Excess Respiration Rate O2 Delivery Device Blood Gas Modality Inspired O2 Tidal Volume PEEP Sodium Potassium Chloride Carbon Dioxide BUN Creatinine Est GFR ( Amer) Est GFR (Non-Af Amer) BUN/Creatinine Ratio Glucose POC Glucose 159 H Calculated Osmolality Lactic Acid 3.0 H Uric Acid Calcium Venous Ioniz Calcium 1.10 L Phosphorus Magnesium Random Vancomycin 08/21/18 08/21/18 08/21/18 02:12 04:15 04:15 WBC 40.0 H* RBC 3.00 L Hgb 8.8 L Hct 25.8 L MCV 86.0 MCH 29.3 MCHC 34.1 RDW 16.3 H Plt Count 78 L MPV 10.9 Seg Neutrophils % 60.0 Band Neutrophils % 10.0 H Lymphocytes % 8.0 Monocytes % 12.0 Eosinophils % 4.0 Metamyelocytes % Myelocytes % Blast Cells % 6.0 H Neutrophils # 28.0 H Lymphocytes # 3.2 Monocytes # 4.8 H Eosinophils # 1.6 H Nucleated RBCs/100 WBC 6.5 H Platelet Estimate Marked Decrease L Hypochromasia Anisocytosis PT INR Fibrinogen Sample Site ABG pH ABG pCO2 ABG pO2 ABG HCO3 ABG Total CO2 ABG O2 Saturation ABG Base Excess Respiration Rate O2 Delivery Device Blood Gas Modality Inspired O2 Tidal Volume PEEP Sodium Potassium Chloride Carbon Dioxide BUN Creatinine Est GFR ( Amer) Est GFR (Non-Af Amer) BUN/Creatinine Ratio Glucose POC Glucose Calculated Osmolality Lactic Acid 3.7 H Uric Acid Calcium Venous Ioniz Calcium 1.05 L Phosphorus Magnesium Random Vancomycin 08/21/18 08/21/18 08/21/18 04:15 04:15 04:16 WBC RBC Hgb Hct MCV MCH MCHC RDW Plt Count MPV Seg Neutrophils % Band Neutrophils % Lymphocytes % Monocytes % Eosinophils % Metamyelocytes % Myelocytes % Blast Cells % Neutrophils # Lymphocytes # Monocytes # Eosinophils # Nucleated RBCs/100 WBC Platelet Estimate Hypochromasia Anisocytosis PT 13.9 H INR 1.2 Fibrinogen 179 Sample Site ABG pH ABG pCO2 ABG pO2 ABG HCO3 ABG Total CO2 ABG O2 Saturation ABG Base Excess Respiration Rate O2 Delivery Device Blood Gas Modality Inspired O2 Tidal Volume PEEP Sodium 142 Potassium 4.2 Chloride 105 Carbon Dioxide 29 BUN 7 L Creatinine 0.67 Est GFR ( Amer) > 60 Est GFR (Non-Af Amer) > 60 BUN/Creatinine Ratio 10 Glucose 167 H POC Glucose Calculated Osmolality 296 Lactic Acid Uric Acid Calcium 10.0 Venous Ioniz Calcium Phosphorus 2.7 Magnesium 1.9 Random Vancomycin 17 08/21/18 08/21/18 08/21/18 04:29 04:42 10:07 WBC RBC Hgb Hct MCV MCH MCHC RDW Plt Count MPV Seg Neutrophils % Band Neutrophils % Lymphocytes % Monocytes % Eosinophils % Metamyelocytes % Myelocytes % Blast Cells % Neutrophils # Lymphocytes # Monocytes # Eosinophils # Nucleated RBCs/100 WBC Platelet Estimate Hypochromasia Anisocytosis PT INR Fibrinogen Sample Site Art Line ABG pH 7.44 ABG pCO2 45 ABG pO2 95 ABG HCO3 30 H ABG Total CO2 32 H ABG O2 Saturation 98 ABG Base Excess 5 H Respiration Rate 20 O2 Delivery Device Adult Vent Blood Gas Modality ASSIST CONTROL Inspired O2 40.0 Tidal Volume 440 PEEP 5 Sodium Potassium Chloride Carbon Dioxide BUN Creatinine Est GFR ( Amer) Est GFR (Non-Af Amer) BUN/Creatinine Ratio Glucose POC Glucose Calculated Osmolality Lactic Acid Uric Acid Calcium Venous Ioniz Calcium 1.14 L 1.15 Phosphorus Magnesium Random Vancomycin 08/21/18 08/21/18 08/21/18 12:10 12:19 12:27 WBC RBC Hgb Hct MCV MCH MCHC RDW Plt Count MPV Seg Neutrophils % Band Neutrophils % Lymphocytes % Monocytes % Eosinophils % Metamyelocytes % Myelocytes % Blast Cells % Neutrophils # Lymphocytes # Monocytes # Eosinophils # Nucleated RBCs/100 WBC Platelet Estimate Hypochromasia Anisocytosis PT INR Fibrinogen Sample Site ABG pH ABG pCO2 ABG pO2 ABG HCO3 ABG Total CO2 ABG O2 Saturation ABG Base Excess Respiration Rate O2 Delivery Device Blood Gas Modality Inspired O2 Tidal Volume PEEP Sodium Potassium Chloride Carbon Dioxide BUN Creatinine Est GFR ( Amer) Est GFR (Non-Af Amer) BUN/Creatinine Ratio Glucose POC Glucose 166 H Calculated Osmolality Lactic Acid Uric Acid Calcium Venous Ioniz Calcium 1.17 Phosphorus Magnesium 2.3 Random Vancomycin - ABG Interpretation ABG results: ABG ABG pH 7.44 pH Units (7.32-7.45) 08/21/18 04:42 ABG pCO2 45 mmHg (35-45) 08/21/18 04:42 ABG pO2 95 mmHg (85-104) 08/21/18 04:42 ABG O2 Saturation 98 % (95-98) 08/21/18 04:42 PT/INR, D-dimer PT 13.9 Seconds (9.4-12.1) H 08/21/18 04:15 Consult Discharge Plan - Plan Referrals: Julian Bhatt DO [Primary Care Provider] -
[2018-08-21 17:47] LABS: Hematocrit 26.8 % (35.3-44.9); Hemoglobin 8.9 g/dL (11.5-15.4); Mean Corpuscular HGB Conc 33.2 g/dL (31.6-35.5); Mean Corpuscular Hemoglobin 28.8 pg (28.0-33.3); Mean Corpuscular Volume 86.7 fL (83.0-100.0); Mean Platelet Volume 11.9 fL (9.4-12.4); Nucleated Red Blood Cells 5.2 /100 WBC (0); Red Blood Count 3.09 M/mcL (3.82-4.97); Red Cell Distribution Width 16.6 % (11.5-14.5)
[2018-08-21 17:53] LABS: INR 1.2; Prothrombin Time 13.9 Seconds (9.4-12.1)
[2018-08-21 18:04] LABS: BUN/Creatinine Ratio 9 (6-26); Blood Urea Nitrogen 5 mg/dL (8-23); Carbon Dioxide 31 mEq/L (23-29); Chloride 105 mEq/L (98-107); Glucose 141 mg/dL (70-105); Osmolality,Calculated 292 (280-300); Potassium 4.5 mEq/L (3.5-5.1); Sodium 141 mEq/L (136-145); eGFR For Non-African Americans > 60 (> 60)
[2018-08-21 18:15] LABS: Platelet Count 53 K/mcL (140-400)
[2018-08-21 19:10] LABS: Basophils # 1.9 K/mcL (0.0-0.2); Eosinophils # 1.9 K/mcL (0.0-0.6); Hypochromasia Present (Not Present); Lymphocytes # 2.8 K/mcL (0.6-4.6); Microcytosis Present (Not Present); Monocytes # 2.8 K/mcL (0.0-1.3); Neutrophils # 35.4 K/mcL (1.6-8.9); Toxic Granulation Present (Not Present)
[2018-08-21 19:11] LABS: VBG Ionized Calcium 1.06 mmol/L (1.15-1.35)
[2018-08-21 19:11] LABS: Platelet Estimate Marked Decrease (Normal)
[2018-08-21 21:43] LABS: VBG Ionized Calcium 0.96 mmol/L (1.15-1.35)
[2018-08-21] MEDS: Insulin LISPRO 300 UNITS/3 ML VIAL SQ SCH (23:33)
[2018-08-21 23:37] LABS: VBG Ionized Calcium 1.12 mmol/L (1.15-1.35)
[2018-08-22] MEDS: FentaNYL (PF) 1,000 MCG in 0.9 % Sodium Chloride 80 ML IVC SCH (00:31)
[2018-08-22] MEDS: PHENYLEPHRINE IVC SCH (00:32)
[2018-08-22] MEDS: WATER IVC SCH (00:32)
[2018-08-22] MEDS: D5 IVC SCH (00:32)
[2018-08-22] MEDS: PrismaSATE BGK 4/2.5 5,000 ML CRRT SCH ×4 (00:45→06:35)
[2018-08-22] MEDS: Piperacillin/Tazobactam 3.375 GM in 0.9 % Sodium Chloride Mini Bag 100 ML IVPB SCH ×2 (01:18→08:59)
[2018-08-22] MEDS: Dexmedetomidine HCl 400 MCG/100 ML MLS IVC SCH (02:40)
[2018-08-22 02:47] LABS: VBG Ionized Calcium 1.03 mmol/L (1.15-1.35)
[2018-08-22 04:03] LABS: Hemoglobin 8.6 g/dL (11.5-15.4)
[2018-08-22 04:04] LABS: Mean Corpuscular HGB Conc 33.1 g/dL (31.6-35.5); Mean Corpuscular Hemoglobin 29.2 pg (28.0-33.3); Mean Corpuscular Volume 88.1 fL (83.0-100.0); Mean Platelet Volume 11.1 fL (9.4-12.4); Nucleated Red Blood Cells 4.3 /100 WBC (0); Red Blood Count 2.95 M/mcL (3.82-4.97); Red Cell Distribution Width 16.6 % (11.5-14.5)
[2018-08-22 04:07] LABS: Platelet Count 38 K/mcL (140-400)
[2018-08-22] MEDS: Artificial Tears SOLN 15 ML BOTTLE BOTH EYES SCH ×3 (04:16→12:22)
[2018-08-22 04:19] LABS: INR 1.3; Prothrombin Time 14.5 Seconds (9.4-12.1)
[2018-08-22 04:26] LABS: BUN/Creatinine Ratio 9 (6-26); Blood Urea Nitrogen 5 mg/dL (8-23); Calcium 9.9 mg/dL (8.6-10.3); Carbon Dioxide 29 mEq/L (23-29); Chloride 103 mEq/L (98-107); Glucose 136 mg/dL (70-105); Osmolality,Calculated 293 (280-300); Potassium 4.2 mEq/L (3.5-5.1); Sodium 142 mEq/L (136-145); eGFR For Non-African Americans > 60 (> 60)
[2018-08-22 04:29] LABS: Eosinophils # 2.9 K/mcL (0.0-0.6); Lymphocytes # 6.9 K/mcL (0.6-4.6); Monocytes # 7.8 K/mcL (0.0-1.3); Neutrophils # 27.4 K/mcL (1.6-8.9)
[2018-08-22 04:30] LABS: Platelet Estimate Marked Decrease (Normal)
[2018-08-22 04:30] LABS: ABG Base Excess -1 mEq/L (-2 to 3); ABG HCO3 24 mEq/L (21-27); ABG Oxygen Saturation 98 % (95-98); ABG PCO2 37 mmHg (35-45); ABG PH 7.41 pH Units (7.32-7.45); ABG PO2 97 mmHg (85-104); ABG TCO2 25 mEq/L (20-26); Blood Gas Modality VC; Blood Gas PEEP 5 cm H2O; Blood Gas Respiration Rate 16; Blood Gas VT 450 cc
[2018-08-22] MEDS: Ipratropium/Albuterol Neb 3 ML IH SCH ×2 (05:13→11:26)
[2018-08-22] MEDS: *HR* Heparin 5,000 UNIT/ML VIAL SQ SCH (05:14)
[2018-08-22] MEDS: Calcium Chloride 4,000 MG in 0.9 % Sodium Chloride 1,000 ML CRRT SCH (05:15)
[2018-08-22] MEDS: *HR* Heparin 5,000 UNIT/ML VIAL IV PRN ×2 (05:17→12:17)
[2018-08-22] MEDS: Insulin LISPRO 300 UNITS/3 ML VIAL SQ SCH ×2 (05:25→12:22)
[2018-08-22] MEDS: CITRATE DEXTROSE CRRT SCH (06:35)
--- NOTE | 2018-08-22 07:01 | Pulmonology Progress Note ---
<Matias Luciano Geoff - Last Filed: 08/22/18 07:01> Date of Encounter: 08/22/18 Time of Encounter: 07:01 Assessment and Plan (1) Acute respiratory failure Status: Acute Patient remains intubated status post splenectomy Sedated with fentanyl and Precedex We will continue to attempt sedation and vent weaning Qualifiers: Respiratory failure complication: unspecified whether with hypoxia or hypercapnia Qualified Code(s): J96.00 - Acute respiratory failure, unspecified whether with hypoxia or hypercapnia (2) Leukocytosis Status: Acute Patient has significantly elevated white count above 40 There is a concern for neoplastic process Oncology is following and pathology is pending In discussion with family decisions regarding goals of care will be made pending pathology results Qualifiers: Leukocytosis type: unspecified Qualified Code(s): D72.829 - Elevated white blood cell count, unspecified (3) Septic shock Status: Acute Patient is in septic shock requiring vasopressors. Patient had been on epinephrine and norepinephrine however her vasopressor requirement has significantly decreased. The patient is now only on Duong. (4) Pneumonia Status: Acute Due to concern for possible pneumonia the patient was started on Zosyn and vancomycin. Currently day 6 for each respectively vancomycin stopped today Qualifiers: Pneumonia type: due to unspecified organism Laterality: unspecified laterality Lung location: unspecified part of lung Qualified Code(s): J18.9 - Pneumonia, unspecified organism (5) Splenic hemorrhage Status: Acute CT scan was performed of the abdomen and pelvis shows splenomegaly with concern for possible splenic hemorrhage. 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 Acute care surgery is following the patient. No acute complications (6) Anemia Status: Acute Patient did have initial anemia of 6.4. The patient was transfused with 1 unit of packed red blood cells on the evening of 08/19/18. The patient's hemoglobin did respond. Patient's hemoglobin this morning is 8.8. We will continue to transfuse as appropriate with a goal of 8 or greater. Qualifiers: Anemia type: unspecified type Qualified Code(s): D64.9 - Anemia, unspecified (7) DIC (disseminated intravascular coagulation) Status: Acute Patient's DIC seems to be improving. Patient has a INR of 1.2, fibrinogen of 185, platelets of 53 and the patient's hemoglobin is 8.8. Parameters for treating the patient are per Hem/Onc recommendations. Patient did require one unit of packed red blood cells, 1 of cryoprecipitate and 1 of platelets 08/19. (8) MARISA (acute kidney injury) Status: Resolved Patient does have a history of chronic kidney disease stage III according to the family. She did present with a acute kidney injury Resolved Subjective Principal diagnosis: MARISA Interval history: No acute events overnight, patient remains intubated. Objective PUL Vital signs: Last Vital Signs Temp 97.5 F L 08/22/18 05:00 Pulse 86 08/22/18 06:00 Resp 19 08/22/18 06:00 BP 75/43 08/22/18 06:00 Pulse Ox 100 08/22/18 06:00 Ventilator Settings Ventilator Settings: Ventilator Settings, Last 8 Hours Ventilator Tidal Volume 440 Setting Ventilator Tidal Volume 450 Setting Ventilator Tidal Volume 440 Setting Ventilator Tidal Volume 450 Setting Ventilator Tidal Volume 440 Setting Ventilator Tidal Volume 450 Setting Ventilator Tidal Volume 440 Setting Ventilator Tidal Volume 440 Setting Ventilator Tidal Volume 440 Setting Ventilator Tidal Volume 440 Setting Ventilator Tidal Volume 440 Setting Ventilator Tidal Volume 440 Setting Ventilator Respiratory Rate 16 Setting Ventilator Respiratory Rate 16 Setting Ventilator Respiratory Rate 16 Setting Ventilator Respiratory Rate 16 Setting Ventilator Respiratory Rate 16 Setting Ventilator Respiratory Rate 16 Setting Ventilator Respiratory Rate 16 Setting Ventilator Respiratory Rate 16 Setting Ventilator Respiratory Rate 16 Setting Ventilator Respiratory Rate 16 Setting Ventilator Respiratory Rate 16 Setting Ventilator Respiratory Rate 16 Setting Actual Respiratory Rate 19 Actual Respiratory Rate 17 Actual Respiratory Rate 19 Actual Respiratory Rate 19 Actual Respiratory Rate 19 Actual Respiratory Rate 23 Actual Respiratory Rate 20 Actual Respiratory Rate 22 Actual Respiratory Rate 19 Actual Respiratory Rate 25 Actual Respiratory Rate 22 Positive End Expiratory 5 Pressure Positive End Expiratory 5 Pressure Positive End Expiratory 5 Pressure Positive End Expiratory 5 Pressure Positive End Expiratory 5 Pressure Positive End Expiratory 5 Pressure Positive End Expiratory 5 Pressure Positive End Expiratory 5 Pressure Positive End Expiratory 5 Pressure Positive End Expiratory 5 Pressure Positive End Expiratory 5 Pressure Positive End Expiratory 5 Pressure Peak Inspiratory Airway 14 Pressure Peak Inspiratory Airway 24 Pressure Peak Inspiratory Airway 21 Pressure Peak Inspiratory Airway 25 Pressure Peak Inspiratory Airway 20 Pressure Peak Inspiratory Airway 22 Pressure Peak Inspiratory Airway 16 Pressure Peak Inspiratory Airway 24 Pressure Peak Inspiratory Airway 24 Pressure Peak Inspiratory Airway 16 Pressure Peak Inspiratory Airway 12 Pressure Results - Laboratory Findings CBC and BMP: 08/22/18 03:45 08/22/18 03:45 ABG ABG pH 7.41 pH Units (7.32-7.45) 08/22/18 04:26 ABG pCO2 37 mmHg (35-45) 08/22/18 04:26 ABG pO2 97 mmHg (85-104) 08/22/18 04:26 ABG O2 Saturation 98 % (95-98) 08/22/18 04:26 PT/INR, D-dimer PT 14.5 Seconds (9.4-12.1) H 08/22/18 03:45 Abnormal lab findings: Abnormal lab results WBC 48.9 K/mcL (4.3-11.1) H* 08/22/18 03:45 RBC 2.95 M/mcL (3.82-4.97) L 08/22/18 03:45 Hgb 8.6 g/dL (11.5-15.4) L 08/22/18 03:45 Hct 26.0 % (35.3-44.9) L 08/22/18 03:45 MCHC 30.0 g/dL (31.6-35.5) L 08/18/18 04:10 RDW 16.6 % (11.5-14.5) H 08/22/18 03:45 Plt Count 38 K/mcL (140-400) L 08/22/18 03:45 Immature Gran % 14.5 % (0-4) H 08/18/18 22:25 20.0 % (0-4) H 08/21/18 17:35 2.0 % (0) H 08/22/18 03:45 4.0 % (0) H 08/22/18 03:45 2.0 % (0) H 08/22/18 03:45 27.4 K/mcL (1.6-8.9) H 08/22/18 03:45 6.9 K/mcL (0.6-4.6) H 08/22/18 03:45 7.8 K/mcL (0.0-1.3) H 08/22/18 03:45 2.9 K/mcL (0.0-0.6) H 08/22/18 03:45 1.9 K/mcL (0.0-0.2) H 08/21/18 17:35 Nucleated RBCs/100 WBC 4.3 /100 WBC (0) H 08/22/18 03:45 Present (Not Present) A 08/18/18 22:25 Present (Not Present) A 08/21/18 17:35 Present (Not Present) A 08/19/18 16:08 Marked Decrease (Normal) L 08/22/18 03:45 Present (Not Present) A 08/19/18 16:08 Immature Plt Fraction 9.8 % (1.1-6.1) H 08/19/18 09:22 Present (Not Present) A 08/21/18 17:35 1+ (Not Present) A 08/20/18 16:18 Present (Not Present) A 08/21/18 17:35 PT 14.5 Seconds (9.4-12.1) H 08/22/18 03:45 APTT 49.2 Seconds (26.0-36.0) H 08/18/18 01:10 146 mg/dL (169-393) L 08/19/18 16:08 ABG pH 7.12 pH Units (7.32-7.45) L* 08/18/18 09:08 ABG pCO2 31 mmHg (35-45) L 08/18/18 07:01 ABG pO2 157 mmHg (85-104) H 08/19/18 04:51 ABG HCO3 30 mEq/L (21-27) H 08/21/18 04:42 ABG Total CO2 32 mEq/L (20-26) H 08/21/18 04:42 ABG O2 Saturation 99 % (95-98) H 08/19/18 04:51 ABG Base Excess 5 mEq/L (-2 to 3) H 08/21/18 04:42 Sodium 134 mEq/L (136-145) L 08/17/18 04:24 Potassium 3.3 mEq/L (3.5-5.1) L 08/19/18 09:22 Chloride 108 mEq/L (98-107) H 08/20/18 00:50 Carbon Dioxide 31 mEq/L (23-29) H 08/21/18 17:35 BUN 5 mg/dL (8-23) L 08/22/18 03:45 0.53 mg/dL (0.60-1.20) L 08/22/18 03:45 Est GFR ( Amer) 42 (> 60) L 08/19/18 16:08 Est GFR (Non-Af Amer) 51 (> 60) L 08/20/18 03:30 Glucose 136 mg/dL (70-105) H 08/22/18 03:45 POC Glucose 129 mg/dL (70-99) H 08/21/18 23:29 308 (280-300) H 08/18/18 12:35 Lactic Acid 3.7 mmol/L (0.5-2.2) H 08/21/18 04:15 1.8 mg/dL (2.3-7.6) L 08/20/18 16:18 Calcium 8.5 mg/dL (8.6-10.3) L 08/19/18 16:08 Venous Ioniz Calcium 1.03 mmol/L (1.15-1.35) L 08/22/18 02:35 Phosphorus 1.2 mg/dL (2.7-4.5) L 08/20/18 16:18 1.7 mg/dL (0.3-1.0) H 08/18/18 22:25 0.7 mg/dL (0.0-0.2) H 08/18/18 12:35 AST 7 Units/L (13-39) L 08/16/18 11:55 ALT 5 Units/L (7-52) L 08/16/18 11:55 422 Units/L (140-271) H 08/18/18 10:35 5.8 g/dL (6.4-8.9) L 08/18/18 22:25 2.4 g/dL (3.5-5.7) L 08/19/18 03:25 3.6 g/dL (2.4-3.5) H 08/18/18 12:35 0.8 (1.1-2.2) L 08/18/18 22:25 1.03 mmol/L (1.15-1.35) L 08/18/18 22:53 Turbid (Clear) A 08/16/18 11:36 Ur Specific [place] > 1.030 (1.010-1.025) H 08/16/18 11:36 >=300 mg/dL (Neg-Trace) H 08/16/18 11:36 Trace mg/dL (Negative) H 08/16/18 11:36 Small (Negative) H 08/16/18 11:36 Ur Leukocyte Esterase Small (Negative) H 08/16/18 11:36 30-50 per hpf (0-3) H 08/16/18 11:36 Ur Squamous Epith Cells Many per lpf (None-Few) H 08/16/18 11:36 Present per hpf (None Seen) H 08/16/18 11:36 Ur Culture Indicated? NO. (NO) A 08/16/18 11:36 Antibody Screen POSITIVE A 08/18/18 18:25 Crossmatch See Detail 08/18/18 18:25 - Microbiology Findings Microbiology Findings: Microbiology, Last 48 Hours 08/16/18 11:55 Blood Culture - Final Peripheral Venipuncture No growth. Final report. 08/16/18 11:55 Blood Culture - Final Peripheral Venipuncture No growth. Final report. - Clinical Findings Intake & Output: Intake & Output 08/21/18 08/21/18 08/22/18 15:59 23:59 07:59 Intake Total 2306.2 / 4701.0 1617 / 4701.0 923 / 923 Output Total 2300 / 5859 1334 / 5859 296 / 296 Balance 6.2 / -1158.0 283 / -1158.0 627 / 627 Weight 90.1 kg Consult Discharge Plan - Plan Referrals: Julian Bhatt DO [Primary Care Provider] - <Sophia Kiser - Last Filed: 08/22/18 16:14> Date of Encounter: 08/22/18 Objective PUL Vital signs: Last Vital Signs Temp 97.4 F L 08/22/18 10:26 Pulse 138 08/22/18 11:00 Resp 20 08/22/18 11:15 BP 81/56 08/22/18 11:15 Pulse Ox 89 08/22/18 12:50 Ventilator Settings Ventilator Settings: Ventilator Settings, Last 8 Hours Ventilator Tidal Volume 450 Setting Ventilator Tidal Volume 440 Setting Ventilator Tidal Volume 440 Setting Ventilator Tidal Volume 450 Setting Ventilator Tidal Volume 440 Setting Ventilator Respiratory Rate 16 Setting Ventilator Respiratory Rate 16 Setting Ventilator Respiratory Rate 16 Setting Ventilator Respiratory Rate 16 Setting Ventilator Respiratory Rate 16 Setting Actual Respiratory Rate 20 Actual Respiratory Rate 19 Actual Respiratory Rate 19 Actual Respiratory Rate 20 Actual Respiratory Rate 19 Positive End Expiratory 5 Pressure Positive End Expiratory 5 Pressure Positive End Expiratory 5 Pressure Positive End Expiratory 5 Pressure Positive End Expiratory 5 Pressure Peak Inspiratory Airway 14 Pressure Peak Inspiratory Airway 14 Pressure Peak Inspiratory Airway 14 Pressure Peak Inspiratory Airway 14 Pressure Peak Inspiratory Airway 14 Pressure Results - Laboratory Findings CBC and BMP: 08/22/18 03:45 08/22/18 03:45 ABG ABG pH 7.41 pH Units (7.32-7.45) 08/22/18 04:26 ABG pCO2 37 mmHg (35-45) 08/22/18 04:26 ABG pO2 97 mmHg (85-104) 08/22/18 04:26 ABG O2 Saturation 98 % (95-98) 08/22/18 04:26 PT/INR, D-dimer PT 14.5 Seconds (9.4-12.1) H 08/22/18 03:45 Abnormal lab findings: Abnormal lab results WBC 48.9 K/mcL (4.3-11.1) H* 08/22/18 03:45 RBC 2.95 M/mcL (3.82-4.97) L 08/22/18 03:45 Hgb 8.6 g/dL (11.5-15.4) L 08/22/18 03:45 Hct 26.0 % (35.3-44.9) L 08/22/18 03:45 MCHC 30.0 g/dL (31.6-35.5) L 08/18/18 04:10 RDW 16.6 % (11.5-14.5) H 08/22/18 03:45 Plt Count 38 K/mcL (140-400) L 08/22/18 03:45 Immature Gran % 14.5 % (0-4) H 08/18/18 22:25 20.0 % (0-4) H 08/21/18 17:35 2.0 % (0) H 08/22/18 03:45 4.0 % (0) H 08/22/18 03:45 2.0 % (0) H 08/22/18 03:45 27.4 K/mcL (1.6-8.9) H 08/22/18 03:45 6.9 K/mcL (0.6-4.6) H 08/22/18 03:45 7.8 K/mcL (0.0-1.3) H 08/22/18 03:45 2.9 K/mcL (0.0-0.6) H 08/22/18 03:45 1.9 K/mcL (0.0-0.2) H 08/21/18 17:35 Nucleated RBCs/100 WBC 4.3 /100 WBC (0) H 08/22/18 03:45 Present (Not Present) A 08/18/18 22:25 Present (Not Present) A 08/21/18 17:35 Present (Not Present) A 08/19/18 16:08 Marked Decrease (Normal) L 08/22/18 03:45 Present (Not Present) A 08/19/18 16:08 Immature Plt Fraction 9.8 % (1.1-6.1) H 08/19/18 09:22 Present (Not Present) A 08/21/18 17:35 1+ (Not Present) A 08/20/18 16:18 Present (Not Present) A 08/21/18 17:35 PT 14.5 Seconds (9.4-12.1) H 08/22/18 03:45 APTT 49.2 Seconds (26.0-36.0) H 08/18/18 01:10 146 mg/dL (169-393) L 08/19/18 16:08 ABG pH 7.12 pH Units (7.32-7.45) L* 08/18/18 09:08 ABG pCO2 31 mmHg (35-45) L 08/18/18 07:01 ABG pO2 157 mmHg (85-104) H 08/19/18 04:51 ABG HCO3 30 mEq/L (21-27) H 08/21/18 04:42 ABG Total CO2 32 mEq/L (20-26) H 08/21/18 04:42 ABG O2 Saturation 99 % (95-98) H 08/19/18 04:51 ABG Base Excess 5 mEq/L (-2 to 3) H 08/21/18 04:42 Sodium 134 mEq/L (136-145) L 08/17/18 04:24 Potassium 3.3 mEq/L (3.5-5.1) L 08/19/18 09:22 Chloride 108 mEq/L (98-107) H 08/20/18 00:50 Carbon Dioxide 31 mEq/L (23-29) H 08/21/18 17:35 BUN 5 mg/dL (8-23) L 08/22/18 03:45 0.53 mg/dL (0.60-1.20) L 08/22/18 03:45 Est GFR ( Amer) 42 (> 60) L 08/19/18 16:08 Est GFR (Non-Af Amer) 51 (> 60) L 08/20/18 03:30 Glucose 136 mg/dL (70-105) H 08/22/18 03:45 POC Glucose 129 mg/dL (70-99) H 08/21/18 23:29 308 (280-300) H 08/18/18 12:35 Lactic Acid 3.7 mmol/L (0.5-2.2) H 08/21/18 04:15 1.8 mg/dL (2.3-7.6) L 08/20/18 16:18 Calcium 8.5 mg/dL (8.6-10.3) L 08/19/18 16:08 Venous Ioniz Calcium 1.03 mmol/L (1.15-1.35) L 08/22/18 02:35 Phosphorus 2.4 mg/dL (2.7-4.5) L 08/22/18 03:45 1.7 mg/dL (0.3-1.0) H 08/18/18 22:25 0.7 mg/dL (0.0-0.2) H 08/18/18 12:35 AST 7 Units/L (13-39) L 08/16/18 11:55 ALT 5 Units/L (7-52) L 08/16/18 11:55 422 Units/L (140-271) H 08/18/18 10:35 5.8 g/dL (6.4-8.9) L 08/18/18 22:25 2.4 g/dL (3.5-5.7) L 08/19/18 03:25 3.6 g/dL (2.4-3.5) H 08/18/18 12:35 0.8 (1.1-2.2) L 08/18/18 22:25 1.03 mmol/L (1.15-1.35) L 08/18/18 22:53 Turbid (Clear) A 08/16/18 11:36 Ur Specific [place] > 1.030 (1.010-1.025) H 08/16/18 11:36 >=300 mg/dL (Neg-Trace) H 08/16/18 11:36 Trace mg/dL (Negative) H 08/16/18 11:36 Small (Negative) H 08/16/18 11:36 Ur Leukocyte Esterase Small (Negative) H 08/16/18 11:36 30-50 per hpf (0-3) H 08/16/18 11:36 Ur Squamous Epith Cells Many per lpf (None-Few) H 08/16/18 11:36 Present per hpf (None Seen) H 08/16/18 11:36 Ur Culture Indicated? NO. (NO) A 08/16/18 11:36 Antibody Screen POSITIVE A 08/18/18 18:25 Crossmatch See Detail 08/18/18 18:25 - Microbiology Findings Microbiology Findings: Microbiology, Last 48 Hours 08/16/18 11:55 Blood Culture - Final Peripheral Venipuncture No growth. Final report. 08/16/18 11:55 Blood Culture - Final Peripheral Venipuncture No growth. Final report. - Clinical Findings Intake & Output: Intake & Output 08/22/18 08/22/18 08/22/18 07:59 15:59 23:59 Intake Total 923 / 1887 964 / 1887 Output Total 296 / 1282 986 / 1282 Balance 627 / 605 -22 / 605 Weight 90.1 kg - Attending Attestation I examined this patient and my medical decision-making was reviewed with the Resident Physician. I agree with the documented findings, disposition and treatment plan as described except to the extent set forth below. Patient seen and examined. Labs, radiology, chart personally reviewed. 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
[2018-08-22] MEDS ORDERED: Norepinephrine 4 MG in D5% in Water 250 ML IVC SCH (07:45)
[2018-08-22] MEDS: Fluconazole 100 MG/50 ML 100 MG/50 ML BAG IVPB SCH (07:53)
[2018-08-22] MEDS: Levothyroxine Sodium 100 MCG VIAL IVP SCH (07:53)
[2018-08-22] MEDS: Chlorhexidine Rinse 15 ML MOUTHWASH MM SCH (07:53)
[2018-08-22] MEDS: Pantoprazole 40 MG VIAL IVP SCH (07:53)
[2018-08-22 09:10] LABS: VBG Ionized Calcium 1.15 mmol/L (1.15-1.35)
[2018-08-22] MEDS ORDERED: 0.9 % Sodium Chloride 250 ML ONE (09:33)
[2018-08-22] MEDS ORDERED: Phenylephrine 50 MG in D5% in Water 250 ML IVC SCH (10:00)
--- NOTE | 2018-08-22 10:33 | Oncology Inp Progress Note ---
<Marline Henderson L - Last Filed: 08/22/18 13:25> Date of Encounter: 08/22/18 Time of Encounter: 10:00 (1) DIC (disseminated intravascular coagulation) Current Visit: Yes Status: Acute Assessment and plan: Patient noted to have approximately 4 g blood loss after splenic hemorrhage, patient decompensated and was intubated and placed in ICU. Abnormalities could be DIC or coagulopathies related to large amount of blood loss from splenic hemorrhage. Will treat for DIC at this time: 08/22/18 labs: INR 1.3 Fibrinogen 188 Platelets 38 Hgb 8.6 Plan: Following further discussion with palliative care team today, family have decided to compassionately remove care and institute comfort care measures only. More family are planning to arrive and spend time with patient prior to transition, we appreciate the ICU team/Palliative Care Team's assistance with this transition Verbal support offered to patients family, we will be available for any support needed in future, please feel free to reach out should family have further questions, we will otherwise plan to sign off (2) Splenic hemorrhage Current Visit: Yes Status: Acute Assessment and plan: Presented with splenomegaly with infarct and areas of rupture. POD #5 Splenectomy Hematopathological review is pending but does note concern for lymphoreticular proliferation She does have evidence of diffuse RUBIO, previously attempted to biopsy axillary RUBIO on 08/07/2018 however aborted due to no identifiable adenopathy on US We will await pathology from splenectomy for underlying malignancy. SPEP was negative for M-Tobias, Her Urine VERONICA does show a positive BJP Overall, concerning for underlying lymphoproliferative disorder Plan: Dr. Kinsey discussed overall poor prognosis with patients family this AM. She is unable to tolerate full lilly session today due to thrombocytopenia and hypotension Goals of care discussion as summarized above in DIC section Planning to transition to comfort care measures, oncology supports this decision. Even if she recovers from this acute event, her age, debility and need for rehabilitation will preclude therapy. She will not recover in time for meaningful treatment and she is otherwise responding poorly to aggressive treatment. Oncology: Subj Interval history: Ms. Sy is sedated and on ventilator support. Pressor support with Duong, BP 77/46, HR around 150 while in room during my assessment. She remains anuric and unable to tolerate full session of lilly today. Mottling noted to fingertips and bilateral knees. No active s/s bleeding noted. Nephrology in this AM to discuss overall grave situation. Following family discussion with palliative care, decision was made to withdrawal care in future after allowing time for family to arrive/family to spend time with patient. we will defer plans for this transition to the palliative care team. Verbal support provided to family. - Constitutional Exam: Sedated and on ventilator support - ENT Additional comments: ventilator support, blood noted to tube feeding tube - Respiratory Additional comments: course with mechanical breath sounds - Cardiovascular Cardiovascular exam: Present: tachycardia - GI/Abdominal GI/Abdominal exam: Present: hypoactive bowel sounds Additional comments: LUQ janae TAMMY, no bleeding noted - Extremities Exam Extremities exam: Present: pedal edema Additional comments: dependent edema noted to bilat upper and lower extremities, mottling/purple discoloration noted to fingertips - Neurological Exam Additional comments: unable to assess due to sedation - Skin Skin exam: Present: pallor, warm Oncology: Obj Data - Labs CBC & Chem 7: 08/22/18 03:45 08/22/18 03:45 Consult Discharge Plan - Plan Referrals: Julian Bhatt DO [Primary Care Provider] - Inpatient Charges Provider: Dr. Michelle Sloan <Edinson Sloan - Last Filed: 08/22/18 15:08> Date of Encounter: 08/22/18 (1) MARISA (acute kidney injury) Current Visit: Yes Status: Resolved (2) Abnormal CT of the abdomen Current Visit: Yes Status: Acute (3) DIC (disseminated intravascular coagulation) Current Visit: Yes Status: Acute Oncology: Obj Data - Labs CBC & Chem 7: 08/22/18 03:45 08/22/18 03:45 Inpatient Charges Provider: Dr. Michelle Sloan Follow up - Inpatient: [id number] - Attending Attestation I examined this patient and my medical decision-making was reviewed with the Advanced Practice Nurse. I agree with the documented findings, disposition and treatment plan as described except to the extent set forth below. Unfortunately, Ms. Sy is decompensating. Her blood pressure is decreased and she become more tachycardic. Platelets has decreased as well. This is concerning for underlying sepsis. 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 The family has met and agreed to proceed with withdrawal of care. All questions were answered best my ability. I encouraged to contact me with any concerns or questions. We will otherwise sign off
[2018-08-22 11:25] LABS: Magnesium 1.9 mg/dL (1.6-2.6); Phosphorous 2.4 mg/dL (2.7-4.5)
[2018-08-22 11:29] VITALS: BP 81/56
[2018-08-22] MEDS ORDERED: *HR* Heparin 5,000 UNIT/ML VIAL ONE (11:50)
[2018-08-22] MEDS ORDERED: *HR* LORazepam 2 MG/ML VIAL IVP PRN (12:42)
[2018-08-22] MEDS ORDERED: *HR* LORazepam 2 MG/ML VIAL ONE (12:42)
[2018-08-22] MEDS ORDERED: *HR* FentaNYL (PF) 100 MCG/2 ML VIAL IVP PRN (12:45)
--- NOTE | 2018-08-22 13:40 | Nephrology Progress Note ---
Date of Encounter: 08/22/18 Time of Encounter: 08:50 - Assessment and Plan (1) Acute kidney injury superimposed on CKD Current Visit: Yes Status: Acute Oliguric to anuric MARISA on CKD stage 3. Most likely MARISA 2/2 to sepsis and now progressed to septic shock causing a lactic acidosis. Lactic acid = 2.8 now increased to 9.8. Prerenal azotemia vs. ATN 2/2 septic shock. Blood pressures requiring Norepi and Epi. CT of abdomen showed no hydronephrosis. UA was contaminated but did show a specific gravity of 1.030 and proteinuria. We will repeat urine after patient begins to make urine. Yeast present which could be a contaminate but would consider adding an antifungal. Patient has not made urine over the last 24 hours. Patient's blood pressures continue to be tenuous, she was switched from Duong to Norepi. She continues to have 2+ pitting edema with minimal to urinary output. Discussion was held with family about the gravity of her situation and that continuing lilly at this point could worsen her situation as citrate would have to be stopped and therefore the filter would clot more causing worsening anemia. Heparin cannot be used as patient has DIC and a platelet count of 38. Family understood plan. Plan: - stopping Lilly at 1700 if filter has not clotted before than - palliative care following and patient was made DNR-CC - avoid nephrotoxins - strict I&Os - adjust mediations to creatinine clearance - status: poor prognosis (2) Thrombocytopenia Current Visit: Yes Status: Acute 1 unit of platelets given today. S/p transfusion of 4 units of platelets. (3) DIC (disseminated intravascular coagulation) Current Visit: Yes Status: Acute (4) Septic shock Current Visit: Yes Status: Acute (5) Metabolic acidosis Current Visit: Yes Status: Acute (6) Pneumonia Current Visit: Yes Status: Acute Qualifiers: Pneumonia type: due to unspecified organism Laterality: unspecified laterality Lung location: unspecified part of lung Qualified Code(s): J18.9 - Pneumonia, unspecified organism (7) Low phosphate levels Current Visit: Yes Status: Acute (8) Splenomegaly Current Visit: Yes Status: Acute (9) Anemia Current Visit: Yes Status: Acute Qualifiers: Anemia type: unspecified type Qualified Code(s): D64.9 - Anemia, unspecified Subjective Principal diagnosis: MARISA Interval history: Ms. Sy is a 87 year old female with pmh of hypertension, dyslipidemia and hypothyroidism presenting from the long-term for SOB. Nephrology was consulted for MARISA and anuria. In reviewing records at [place], she has had a CKD stage 3. Creatinine previously normal in July this month. Patient currently still intubated. She was switched from Duong to Norepi this morning for blood pressure control as her blood pressures continued to drop. and son were present in the room and discussion was had concerning poor prognosis and the risks of continuing Lilly. Discussed that continued therapy with Lilly could accelerate due to worsening anemia as we would need to stop using citrate due to platelet count dropping. Discussed with family that after stopping lilly that she would only have a couple of days if her kidneys do not regain function which at this point is unlikely. Family understood gravity of the situation. Objective - Vital Signs Vital signs: Vital Signs Temp Pulse Resp BP Pulse Ox 08/22/18 12:50 89 08/22/18 11:15 20 81/56 100 08/22/18 11:00 138 18 67/45 100 08/22/18 10:26 97.4 F L 144 18 84/54 08/22/18 10:11 97.5 F L 146 21 78/54 100 08/22/18 10:00 97.4 F L 140 18 84/54 100 08/22/18 09:20 20 99 08/22/18 09:12 82 17 77/46 100 08/22/18 08:07 97.5 F L 80 22 79/46 100 08/22/18 08:00 82 08/22/18 07:08 18 85/47 100 08/22/18 06:00 86 19 75/43 100 08/22/18 05:13 17 100 08/22/18 05:00 97.5 F L 85 17 96/51 100 08/22/18 04:00 75 19 82/47 100 08/22/18 03:02 20 106/55 99 08/22/18 03:00 78 23 82/48 100 08/22/18 02:00 80 22 79/48 99 08/22/18 01:07 22 89/55 100 08/22/18 01:00 80 19 103/59 100 08/22/18 00:00 84 25 90/56 100 08/21/18 23:19 73 08/21/18 23:15 22 84/53 100 08/21/18 23:00 81 22 88/58 100 08/21/18 22:00 79 17 80/50 100 08/21/18 21:44 19 88/55 100 08/21/18 21:00 81 25 85/51 100 08/21/18 20:03 81 08/21/18 20:00 97.4 F L 80 17 84/51 100 08/21/18 19:24 17 97/56 100 08/21/18 19:00 79 18 94/55 100 08/21/18 18:00 80 18 90/55 100 08/21/18 17:47 17 97/57 100 08/21/18 17:00 83 16 99/58 100 08/21/18 16:00 97.6 F 83 18 93/56 100 08/21/18 15:35 22 82/52 100 08/21/18 15:00 83 19 84/52 100 08/21/18 14:00 74 18 112/62 100 Intake and Output 08/21/18 08/22/18 08/22/18 23:59 07:59 15:59 Intake Total 1617 / 4701.0 923 / 1887 964 / 1887 Output Total 1334 / 5859 296 / 1282 986 / 1282 Balance 283 / -1158.0 627 / 605 -22 / 605 Intake: IV Fluids 1617 / 4570.0 923 / 1587 664 / 1587 Calcium Chloride 4,000 MG In 0. 1417 / 2697 423 / 1063 640 / 1063 9 % Sodium Chloride 1,000 ML @ 40 mls/hr CRRT CONT [facility] Rx#: [id number] PrismaSATE BGK 4/2.5 5,000 ML @ 0 / 0 0 / 0 1000 mls/hr CRRT CONT [facility] Rx#: [id number] PRECEDEX Premix 400 mcg In 100 100 / 300 100 / 100 ml @ 0.2 MCG/KG/HR 4.09 mls/hr IVC .Q24H [facility] Rx#:[id number] FentaNYL (PF) 1,000 MCG In 0.9 100 / 100 % Sodium Chloride 80 ML @ 50 MCG/HR 5 mls/hr IVC CONT [facility] Rx #:[id number] Levophed 4 MG In Dextrose 5% / 250 ML @ 8 MCG/MIN 30.48 mls/hr IVC CONT [facility] Rx#:[id number] Phenylephrine 75 MG In Dextrose 200 / 200 5% 250 ML @ 100 MCG/MIN 20.6 mls/hr IVC CONT [facility] Rx#: [id number] Zosyn 3.375 GM In 0.9 % Sodium 100 / 300 100 / 100 Chloride (Mini-Bag +) 100 ML @ 25 mls/hr IVPB Q8H [facility] Rx#: [id number] Tube Feeding 0 / 131 0 / 0 0 / 0 Blood Product 300 / 300 Platelet Pheresis Lp Irr 2nd 300 / 300 Unit [id number] Output: Lilly 1134 / 5589 286 / 922 636 / 922 Catheter 0 / 0 10 / 10 0 / 10 Gastric Drainage 200 / 270 350 / 350 Other: Weight 90.1 kg Blood Glucose* 206 129 Fluid Removed by Prismaflex 101 145 140 Patient Weight 08/22/18 23:59 Weight 90.1 kg - General Appearance Exam: Constitutional: intubated, sedated Head: Normocephalic, atraumatic, right IJ temp HD cath clean and dry Eye: no scleral icterus Heart: regular rate and rhythm, Lungs: mechanically ventilated, rhonchi bilaterally Abdomen: Soft, nondistended, nontender, Extremities: bilateral +2 pitting edema present in hands feet and thighs, Skin: Skin warm and dry, no jaundice - Lab 08/22/18 03:45 08/22/18 03:45 Most recent lab results 08/22/18 08/22/18 03:45 04:26 ABG pH 7.41 ABG pCO2 37 ABG pO2 97 ABG HCO3 24 ABG O2 Saturation 98 Calcium 9.9 Phosphorus 2.4 L Magnesium 1.9 Consult Discharge Plan - Plan Referrals: Julian Bhatt DO [Primary Care Provider] -
--- NOTE | 2018-08-22 14:31 | Palliative Progress Note ---
Date of Encounter: 08/22/18 Time of Encounter: 11:40 - Assessment and plan (1) Generalized pain Current Visit: Yes Status: Acute Assessment and plan: Continue Fentanyl drip at this time and titrate for comfort. She will be cruz ssionately extubated soon (2) Anxiety Current Visit: No Status: Acute Assessment and plan: Will transition to Lorazepam after extubation and D/C Precedex. MOnitor and titrate as needed. (3) Goals of care, counseling/discussion Current Visit: No Status: Acute Assessment and plan: Dr. Luciano, myself, primary nurse Urmila Santos met with patient's , 3 children and other family members at her bedside regarding goals of care. Updated on current clinical status. After discussion, family decided to transition to comfort care and agreeable for compassionate extubation. They understand her prognosis is grim and now too hemodynamically unstable for lilly. Patient will be transitioned to DNR-Comfort care and extubated when family ready. Will have comfort meds ordered and will adjust as needed. (4) Acute kidney injury superimposed on CKD Current Visit: Yes Status: Acute (5) Encounter for palliative care Current Visit: Yes Status: Acute (6) Septic shock Current Visit: Yes Status: Acute (7) Splenic hemorrhage Current Visit: Yes Status: Acute (8) Lymphadenopathy Current Visit: Yes Status: Acute - Time Spent With Patient Total time spent is greater than 50% in coordination of care (as documented) at patient's floor/unit and/or counseling patient: - Subjective Interval history: Patient remains sedated and intubated. Increasing hypotension today, decreasing platelets, and [place] [id number] today. Still no renal recovery and remains anuric, and now becoming too unstable for lilly. and son have spoken with nephrology - daughter Duyen has just arrived, and other family have been called in. - Constitutional Vitals: Abnormal lab results WBC 48.9 K/mcL (4.3-11.1) H* 08/22/18 03:45 RBC 2.95 M/mcL (3.82-4.97) L 08/22/18 03:45 Hgb 8.6 g/dL (11.5-15.4) L 08/22/18 03:45 Hct 26.0 % (35.3-44.9) L 08/22/18 03:45 MCHC 30.0 g/dL (31.6-35.5) L 08/18/18 04:10 RDW 16.6 % (11.5-14.5) H 08/22/18 03:45 Plt Count 38 K/mcL (140-400) L 08/22/18 03:45 Immature Gran % 14.5 % (0-4) H 08/18/18 22:25 20.0 % (0-4) H 08/21/18 17:35 2.0 % (0) H 08/22/18 03:45 4.0 % (0) H 08/22/18 03:45 2.0 % (0) H 08/22/18 03:45 27.4 K/mcL (1.6-8.9) H 08/22/18 03:45 6.9 K/mcL (0.6-4.6) H 08/22/18 03:45 7.8 K/mcL (0.0-1.3) H 08/22/18 03:45 2.9 K/mcL (0.0-0.6) H 08/22/18 03:45 1.9 K/mcL (0.0-0.2) H 08/21/18 17:35 Nucleated RBCs/100 WBC 4.3 /100 WBC (0) H 08/22/18 03:45 Present (Not Present) A 08/18/18 22:25 Present (Not Present) A 08/21/18 17:35 Present (Not Present) A 08/19/18 16:08 Marked Decrease (Normal) L 08/22/18 03:45 Present (Not Present) A 08/19/18 16:08 Immature Plt Fraction 9.8 % (1.1-6.1) H 08/19/18 09:22 Present (Not Present) A 08/21/18 17:35 1+ (Not Present) A 08/20/18 16:18 Present (Not Present) A 08/21/18 17:35 PT 14.5 Seconds (9.4-12.1) H 08/22/18 03:45 APTT 49.2 Seconds (26.0-36.0) H 08/18/18 01:10 146 mg/dL (169-393) L 08/19/18 16:08 ABG pH 7.12 pH Units (7.32-7.45) L* 08/18/18 09:08 ABG pCO2 31 mmHg (35-45) L 08/18/18 07:01 ABG pO2 157 mmHg (85-104) H 08/19/18 04:51 ABG HCO3 30 mEq/L (21-27) H 08/21/18 04:42 ABG Total CO2 32 mEq/L (20-26) H 08/21/18 04:42 ABG O2 Saturation 99 % (95-98) H 08/19/18 04:51 ABG Base Excess 5 mEq/L (-2 to 3) H 08/21/18 04:42 Sodium 134 mEq/L (136-145) L 08/17/18 04:24 Potassium 3.3 mEq/L (3.5-5.1) L 08/19/18 09:22 Chloride 108 mEq/L (98-107) H 08/20/18 00:50 Carbon Dioxide 31 mEq/L (23-29) H 08/21/18 17:35 BUN 5 mg/dL (8-23) L 08/22/18 03:45 0.53 mg/dL (0.60-1.20) L 08/22/18 03:45 Est GFR ( Amer) 42 (> 60) L 08/19/18 16:08 Est GFR (Non-Af Amer) 51 (> 60) L 08/20/18 03:30 Glucose 136 mg/dL (70-105) H 08/22/18 03:45 POC Glucose 129 mg/dL (70-99) H 08/21/18 23:29 308 (280-300) H 08/18/18 12:35 Lactic Acid 3.7 mmol/L (0.5-2.2) H 08/21/18 04:15 1.8 mg/dL (2.3-7.6) L 08/20/18 16:18 Calcium 8.5 mg/dL (8.6-10.3) L 08/19/18 16:08 Venous Ioniz Calcium 1.03 mmol/L (1.15-1.35) L 08/22/18 02:35 Phosphorus 2.4 mg/dL (2.7-4.5) L 08/22/18 03:45 1.7 mg/dL (0.3-1.0) H 08/18/18 22:25 0.7 mg/dL (0.0-0.2) H 08/18/18 12:35 AST 7 Units/L (13-39) L 08/16/18 11:55 ALT 5 Units/L (7-52) L 08/16/18 11:55 422 Units/L (140-271) H 08/18/18 10:35 5.8 g/dL (6.4-8.9) L 08/18/18 22:25 2.4 g/dL (3.5-5.7) L 08/19/18 03:25 3.6 g/dL (2.4-3.5) H 08/18/18 12:35 0.8 (1.1-2.2) L 08/18/18 22:25 1.03 mmol/L (1.15-1.35) L 08/18/18 22:53 Turbid (Clear) A 08/16/18 11:36 Ur Specific [place] > 1.030 (1.010-1.025) H 08/16/18 11:36 >=300 mg/dL (Neg-Trace) H 08/16/18 11:36 Trace mg/dL (Negative) H 08/16/18 11:36 Small (Negative) H 08/16/18 11:36 Ur Leukocyte Esterase Small (Negative) H 08/16/18 11:36 30-50 per hpf (0-3) H 08/16/18 11:36 Ur Squamous Epith Cells Many per lpf (None-Few) H 08/16/18 11:36 Present per hpf (None Seen) H 08/16/18 11:36 Ur Culture Indicated? NO. (NO) A 08/16/18 11:36 Antibody Screen POSITIVE A 08/18/18 18:25 Crossmatch See Detail 08/18/18 18:25 - Respiratory Additional comments: Breath sounds course throughout. - Cardiovascular Cardiovascular exam: Present: tachycardia - GI/Abdominal GI/Abdominal exam: Present: normal bowel sounds, soft Additional comments: janae intact to left abd - Extremities Exam Additional comments: Generalized edema to all extremities. - Neurological Exam Additional comments: Patient sedated, moves left foot at times. Fluttered eyes for me a couple of times during my visit - Skin Skin exam: Present: dry, pallor, warm Palliative Quality Palliative Quality: Screen for Code Status: Yes, Screen for Goals of Care: Yes, Screen for Pain: Yes, If Pain Regimen Started, Initiate Bowel Regimen: NA, Screen for Nausea/Vomitting: Yes Code Status: 08/16/18 13:37 Resuscitation Status: Active [RES] Routine Comment: Resuscitation Status: Full Code 08/18/18 09:29 CODE [Resuscitation Status: Active] [RES] Routine Comment: Resuscitation Status: DNR-Comfort Care-Arrest 08/22/18 12:42 DNR [Resuscitation Status: Active] [RES] Routine Comment: Resuscitation Status: DNR-Comfort Care - Labs CBC & Chem 7: 08/22/18 03:45 08/22/18 03:45 Labs: Laboratory Results - last 24 hr 08/18/18 08/21/18 08/21/18 18:25 17:35 17:35 WBC 46.6 H* RBC 3.09 L Hgb 8.9 L Hct 26.8 L MCV 86.7 MCH 28.8 MCHC 33.2 RDW 16.6 H Plt Count 53 L MPV 11.9 Seg Neutrophils % 56.0 Band Neutrophils % 20.0 H Lymphocytes % 6.0 Monocytes % 6.0 Eosinophils % 4.0 Basophils % 4.0 Metamyelocytes % Myelocytes % Blast Cells % 4.0 H Neutrophils # 35.4 H Lymphocytes # 2.8 Monocytes # 2.8 H Eosinophils # 1.9 H Basophils # 1.9 H Nucleated RBCs/100 WBC 5.2 H Toxic Granulation Present A Platelet Estimate Marked Decrease L Hypochromasia Present A Microcytosis Present A PT 13.9 H INR 1.2 Fibrinogen 185 Sample Site ABG pH ABG pCO2 ABG pO2 ABG HCO3 ABG Total CO2 ABG O2 Saturation ABG Base Excess Respiration Rate O2 Delivery Device Blood Gas Modality Inspired O2 Tidal Volume PEEP Sodium Potassium Chloride Carbon Dioxide BUN Creatinine Est GFR ( Amer) Est GFR (Non-Af Amer) BUN/Creatinine Ratio Glucose POC Glucose Calculated Osmolality Calcium Venous Ioniz Calcium Phosphorus Magnesium Blood Type O POSITIVE Antibody Screen POSITIVE A Antibody Identification Warm Auto Antibody Crossmatch See Detail 08/21/18 08/21/18 08/21/18 17:35 18:25 19:07 WBC RBC Hgb Hct MCV MCH MCHC RDW Plt Count MPV Seg Neutrophils % Band Neutrophils % Lymphocytes % Monocytes % Eosinophils % Basophils % Metamyelocytes % Myelocytes % Blast Cells % Neutrophils # Lymphocytes # Monocytes # Eosinophils # Basophils # Nucleated RBCs/100 WBC Toxic Granulation Platelet Estimate Hypochromasia Microcytosis PT INR Fibrinogen Sample Site ABG pH ABG pCO2 ABG pO2 ABG HCO3 ABG Total CO2 ABG O2 Saturation ABG Base Excess Respiration Rate O2 Delivery Device Blood Gas Modality Inspired O2 Tidal Volume PEEP Sodium 141 Potassium 4.5 Chloride 105 Carbon Dioxide 31 H BUN 5 L Creatinine 0.58 L Est GFR ( Amer) > 60 Est GFR (Non-Af Amer) > 60 BUN/Creatinine Ratio 9 Glucose 141 H POC Glucose 206 H Calculated Osmolality 292 Calcium 10.0 Venous Ioniz Calcium 1.06 L Phosphorus Magnesium Blood Type Antibody Screen Antibody Identification Crossmatch 08/21/18 08/21/18 08/21/18 21:41 23:29 23:35 WBC RBC Hgb Hct MCV MCH MCHC RDW Plt Count MPV Seg Neutrophils % Band Neutrophils % Lymphocytes % Monocytes % Eosinophils % Basophils % Metamyelocytes % Myelocytes % Blast Cells % Neutrophils # Lymphocytes # Monocytes # Eosinophils # Basophils # Nucleated RBCs/100 WBC Toxic Granulation Platelet Estimate Hypochromasia Microcytosis PT INR Fibrinogen Sample Site ABG pH ABG pCO2 ABG pO2 ABG HCO3 ABG Total CO2 ABG O2 Saturation ABG Base Excess Respiration Rate O2 Delivery Device Blood Gas Modality Inspired O2 Tidal Volume PEEP Sodium Potassium Chloride Carbon Dioxide BUN Creatinine Est GFR ( Amer) Est GFR (Non-Af Amer) BUN/Creatinine Ratio Glucose POC Glucose 129 H Calculated Osmolality Calcium Venous Ioniz Calcium 0.96 L 1.12 L Phosphorus Magnesium Blood Type Antibody Screen Antibody Identification Crossmatch 08/22/18 08/22/18 08/22/18 02:35 03:45 03:45 WBC 48.9 H* RBC 2.95 L Hgb 8.6 L Hct 26.0 L MCV 88.1 MCH 29.2 MCHC 33.1 RDW 16.6 H Plt Count 38 L MPV 11.1 Seg Neutrophils % 56.0 Band Neutrophils % Lymphocytes % 14.0 Monocytes % 16.0 Eosinophils % 6.0 Basophils % Metamyelocytes % 2.0 H Myelocytes % 4.0 H Blast Cells % 2.0 H Neutrophils # 27.4 H Lymphocytes # 6.9 H Monocytes # 7.8 H Eosinophils # 2.9 H Basophils # Nucleated RBCs/100 WBC 4.3 H Toxic Granulation Platelet Estimate Marked Decrease L Hypochromasia Microcytosis PT INR Fibrinogen Sample Site ABG pH ABG pCO2 ABG pO2 ABG HCO3 ABG Total CO2 ABG O2 Saturation ABG Base Excess Respiration Rate O2 Delivery Device Blood Gas Modality Inspired O2 Tidal Volume PEEP Sodium 142 Potassium 4.2 Chloride 103 Carbon Dioxide 29 BUN 5 L Creatinine 0.53 L Est GFR ( Amer) > 60 Est GFR (Non-Af Amer) > 60 BUN/Creatinine Ratio 9 Glucose 136 H POC Glucose Calculated Osmolality 293 Calcium 9.9 Venous Ioniz Calcium 1.03 L Phosphorus 2.4 L Magnesium 1.9 Blood Type Antibody Screen Antibody Identification Crossmatch 08/22/18 08/22/18 08/22/18 03:45 04:26 09:07 WBC RBC Hgb Hct MCV MCH MCHC RDW Plt Count MPV Seg Neutrophils % Band Neutrophils % Lymphocytes % Monocytes % Eosinophils % Basophils % Metamyelocytes % Myelocytes % Blast Cells % Neutrophils # Lymphocytes # Monocytes # Eosinophils # Basophils # Nucleated RBCs/100 WBC Toxic Granulation Platelet Estimate Hypochromasia Microcytosis PT 14.5 H INR 1.3 Fibrinogen 188 Sample Site Art Line ABG pH 7.41 ABG pCO2 37 ABG pO2 97 ABG HCO3 24 ABG Total CO2 25 ABG O2 Saturation 98 ABG Base Excess -1 Respiration Rate 16 O2 Delivery Device Adult Vent Blood Gas Modality VC Inspired O2 40.0 Tidal Volume 450 PEEP 5 Sodium Potassium Chloride Carbon Dioxide BUN Creatinine Est GFR ( Amer) Est GFR (Non-Af Amer) BUN/Creatinine Ratio Glucose POC Glucose Calculated Osmolality Calcium Venous Ioniz Calcium 1.15 Phosphorus Magnesium Blood Type Antibody Screen Antibody Identification Crossmatch - ABG Interpretation ABG results: ABG ABG pH 7.41 pH Units (7.32-7.45) 08/22/18 04:26 ABG pCO2 37 mmHg (35-45) 08/22/18 04:26 ABG pO2 97 mmHg (85-104) 08/22/18 04:26 ABG O2 Saturation 98 % (95-98) 08/22/18 04:26 PT/INR, D-dimer PT 14.5 Seconds (9.4-12.1) H 08/22/18 03:45 Consult Discharge Plan - Plan Referrals: Julian Bhatt DO [Primary Care Provider] -
--- NOTE | 2018-08-22 18:27 | Death Note ---
<Matias Luciano - Last Filed: 08/22/18 18:23> Discharge Sum: Summary - Date and Time Date of admission: 08/16/18 13:40 Date of : 08/22/18 Time of : 13:50 - Summary Details: Patient was terminally extubated. Please see documentation by nursing for events at time of . - Additional Data Confirmation of as documented by pronouncing clinician: other (Please see nursing documentation) Family: at bedside Attending/PCP notified?: Yes Attending physician: Zi Tobar Was code activated?: No Autopsy requested?: No land examiner notified?: No Organ bank notified?: No Advance directives: No Hospice patient?: No Discharge Sum: Diag - PCOD Probable Cause of : Cardiac arrest Discharge Sum: Prov - Provider Primary care physician: Julian Bhatt DO Admitting clinician: Dexter Delcid Attending physician on admission: Dexter Delcid Consults: 08/17/18 08:02 Consult to Nephrology [CONS] Routine Consulting Provider: Kidney Aiyana/CYNTHIA/JENELLE/JEVON Reason for Consult: oliguric MARISA Call Completed: Yes 08/17/18 08:05 Consult to Urology [CONS] Routine Consulting Provider: Urology [place] Reason for Consult: nurses attempted unsuccessfully to place marie Call Completed: Yes 08/17/18 09:20 Consult to Nurse Navigator [CONS] Routine Comment: pn 08/17/18 15:50 Consult to Oncology Hematology [CONS] Routine Consulting Provider: Marline Henderson Reason for Consult: lymphadenopathy, splenomegaly Call Completed: Yes 08/17/18 16:36 Consult to Surgery [CONS] Routine Consulting Provider: Mono Davalos Reason for Consult: splenic congestion and concern for rupture Call Completed: Yes 08/18/18 07:20 Consult to Pulmonology [CONS] Routine Consulting Provider: Pulm Crit Care & Sleep Aiyana Reason for Consult: hypovolemic shock, s/p urgent splenectomy Call Completed: Yes 08/18/18 11:14 Consult to Interventional Radiology [CONS] Routine Consulting Provider: Radiology Interventional Cols Reason for Consult: Please eval for placement of a temporary HD catheter. Thank you Call Completed: Yes 08/18/18 11:22 Consult to Invasive Line Access Team [CONS] Routine Reason for Consult: poor access Line Type: EPIV 08/18/18 11:40 Consult to Palliative Care [CONS] Routine Comment: Consulting Provider: Palliative Care Aiyana Reason for Consult: Patient is septic shock with poor prognosis. Call Completed: No 08/19/18 11:09 Consult to Nutrition [CONS] Routine Comment: Consulting Provider: NUTRITION Reason for Dietary Consult: Tube Feed Start & Manage Pronouncing clinician: Sophia Kiser <Sophia Kiser - Last Filed: 08/23/18 06:59> Discharge Sum: Summary - Date and Time Date of admission: 08/16/18 13:40 - Additional Data Attending physician: Zi Tobar Discharge Sum: Prov - Provider Primary care physician: Julian Bhatt DO Consults: 08/17/18 08:02 Consult to Nephrology [CONS] Routine Consulting Provider: Kidney Aiyana/CYNTHIA/JENELLE/JEVON Reason for Consult: oliguric MARISA Call Completed: Yes 08/17/18 08:05 Consult to Urology [CONS] Routine Consulting Provider: Urology Aiyana Reason for Consult: nurses attempted unsuccessfully to place marie Call Completed: Yes 08/17/18 09:20 Consult to Nurse Navigator [CONS] Routine Comment: pn 08/17/18 15:50 Consult to Oncology Hematology [CONS] Routine Consulting Provider: Marline Henderson Reason for Consult: lymphadenopathy, splenomegaly Call Completed: Yes 08/17/18 16:36 Consult to Surgery [CONS] Routine Consulting Provider: Mono Davalos Reason for Consult: splenic congestion and concern for rupture Call Completed: Yes 08/18/18 07:20 Consult to Pulmonology [CONS] Routine Consulting Provider: Pulm Crit Care & Sleep Aiyana Reason for Consult: hypovolemic shock, s/p urgent splenectomy Call Completed: Yes 08/18/18 11:14 Consult to Interventional Radiology [CONS] Routine Consulting Provider: Radiology Interventional Cols Reason for Consult: Please eval for placement of a temporary HD catheter. Thank you Call Completed: Yes 08/18/18 11:22 Consult to Invasive Line Access Team [CONS] Routine Reason for Consult: poor access Line Type: EPIV 08/18/18 11:40 Consult to Palliative Care [CONS] Routine Comment: Consulting Provider: Palliative Care Aiyana Reason for Consult: Patient is septic shock with poor prognosis. Call Completed: No 08/19/18 11:09 Consult to Nutrition [CONS] Routine Comment: Consulting Provider: NUTRITION Reason for Dietary Consult: Tube Feed Start & Manage - Attending Attestation This documentation was done today 08/23/2018, however patient was seen and her note/discharge summary was discussed with the resident on 08/22/2018 I examined this patient and my medical decision-making was reviewed with the Resident Physician. I agree with the documented findings, disposition and treatment plan as described except to the extent set forth below. Patient seen and examined. Labs, radiology, chart personally reviewed. 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 Patient was in shock and palliative care has helped regarding care of patient and she was not making any significant progress and patient was extubated for comfort and she after that.
== END 2018-08-22 13:50 | disposition expired | DRG 853 ==
LOC: 2ANU 10:59 → EMEROOARM 10:59 → SUATTDRO 13:40 → 2ANU 14:57 → ICNU 08-17 20:15
PROVIDERS: ADMIT Student in an Organized Health Care Education/Training Program; ATTEND Internal Medicine